=== PATIENT | female | born 1930 | race Caucasian/White ===

== ENCOUNTER 2017-05-27 12:06 | Emergency (ER) | payer MEDICARE, OTHER ==
--- NOTE | 2017-05-27 12:29 | ED ---
General Adult HPI - General Chief complaint: Fall Stated complaint: Hand Injury/Swelling, Back Pain Time Seen by Provider: 05/27/17 12:23 Source: patient, RN notes reviewed Mode of arrival: wheelchair Limitations: no limitations - History of Present Illness Initial comments: 86-year-old female presents to the emergency department with a chief complaint of trip and fall. The patient lost her balance and she fell to the ground. She states that she hit her right wrist on a chair and she landed onto her bottom. Since she's been having some low back pain. She also complains of right wrist pain. Follow was 2 days ago. There is no lightheadedness or dizziness before the fall. There was no head injury with the fall. She states that her swelling in her right hand just does not seem to be improving so she thought that she should be seen. Patient denies any recent fever, chills, shortness of breath, chest pain, abdominal pain, nausea vomiting, numbness or tingling, dysuria or hematuria, constipation or diarrhea, headaches or visual changes, or any other current symptoms. - Related Data Home Medications Medication Instructions Recorded Confirmed Furosemide [Lasix] 40 mg PO DAILY 12/08/14 12/08/14 LORazepam [Ativan] 0.5 mg PO HS 12/08/14 12/08/14 Multivitamins, Thera [Multivitamin 1 tab PO DAILY 12/08/14 12/08/14 (formulary)] Omeprazole [PriLOSEC] 20 mg PO AC-BRKFST 12/08/14 12/08/14 Pravastatin Sodium [Pravachol] 40 mg PO HS 12/08/14 12/08/14 Rivaroxaban [Xarelto] 15 mg PO DAILY 12/08/14 12/08/14 Spironolactone [Aldactone] 50 mg PO DAILY 12/08/14 12/08/14 Tiotropium 18 Mcg/Puff [Spiriva] 2 puff INHALATION RT-DAILY 12/08/14 12/08/14 rOPINIRole HCL [Requip] 1 mg PO HS 12/08/14 12/08/14 Previous Rx's Medication Instructions Recorded Brimonidine Tartrate [Alphagan P 1 drops LEFT EYE Q8HR bottle 12/10/14 0.2% Ophth Soln] Latanoprost Ophth [Xalatan 0.005%] 1 drops BOTH EYES HS bottle 12/10/14 Lisinopril-Hctz 10-12.5 mg 1 each PO DAILY tab 12/10/14 [Zestoretic 10-12.5] Timolol 0.25% Ophth Soln [Timoptic 1 drops LEFT EYE BID bottle 12/10/14 0.25% Ophth Soln] Acetaminophen-Codeine 300-30mg 1 tab PO Q4H PRN #20 tablet 05/27/17 [Tylenol w/codeine #3] Allergies Allergy/AdvReac Type Severity Reaction Status Date / Time Penicillins Allergy Rash/Hives Verified 05/27/17 12:19 sulfamethoxazole Allergy Rash/Hives Verified 05/27/17 12:19 [From Bactrim] trimethoprim [From Bactrim] Allergy Rash/Hives Verified 05/27/17 12:19 Review of Systems ROS Statement: Those systems with pertinent positive or pertinent negative responses have been documented in the HPI. ROS Other: All systems not noted in ROS Statement are negative. Past Medical History Past Medical History: Atrial Fibrillation, GERD/Reflux, GI Bleed, Hyperlipidemia , Hypertension Additional Past Medical History / Comment(s): restless leg syndrome History of Any Multi-Drug Resistant Organisms: None Reported Past Surgical History: Appendectomy, Cholecystectomy, Hysterectomy, Joint Replacement, Orthopedic Surgery Additional Past Surgical History / Comment(s): cataracts removed, bilateral knees Past Anesthesia/Blood Transfusion Reactions: No Reported Reaction Past Psychological History: Anxiety Smoking Status: Former smoker Past Alcohol Use History: None Reported Past Drug Use History: None Reported - Past Family History Father Family Medical History: Coronary Artery Disease (CAD) Additional Family Medical History / Comment(s): rhemuatic fever, at 59 of "bad heart" Mother Family Medical History: Cancer Additional Family Medical History / Comment(s): uterus General Exam Limitations: no limitations General appearance: alert, in no apparent distress ENT exam: Present: normal exam, mucous membranes moist Neck exam: Present: normal inspection. Absent: tenderness, meningismus, lymphadenopathy Respiratory exam: Present: normal lung sounds bilaterally. Absent: respiratory distress, wheezes, rales, rhonchi, stridor Cardiovascular Exam: Present: regular rate, normal rhythm, normal heart sounds. Absent: systolic murmur, diastolic murmur, rubs, gallop, clicks Extremities exam: Present: full ROM, tenderness (based the right thumb and into the right wrist), normal capillary refill. Absent: normal inspection (patient appears to have swelling to the right hand with some tenderness to the base of the right thumb and into the right wrist.) Back exam: Present: normal inspection, full ROM. Absent: tenderness, CVA tenderness (R), CVA tenderness (L), muscle spasm, paraspinal tenderness, vertebral tenderness, rash noted Neurological exam: Present: alert, oriented X3 Psychiatric exam: Present: normal affect, normal mood Skin exam: Present: warm, dry, intact, normal color. Absent: rash Course Vital Signs 05/27/17 12:17 Temperature 97.6 F Pulse Rate 58 L Respiratory 18 Rate Blood Pressure 130/84 O2 Sat by Pulse 94 L Oximetry Procedures - Orthopedic Splinting/Casting Injury #1 Side: right Upper Extremity Injury Location: short arm, wrist Upper Extremity Immobilizer: sling/shoulder immobilizer, volar splint Medical Decision Making - Medical Decision Making 86-year-old female presents emergency Department with a chief complaint of fall with low back pain and right wrist pain. Follow was 2 days ago. She denies any saddle anesthesia or loss of bowel or bladder function.at this time patient does appear to have a right wrist fracture as well as a lumbar compression fracture. This and we discussed of lung markings compression fractures of from this fall or from a previous injury. We discussed we will place wrist splint for the right wrist. We'll give her pain medication for home. We discussed follow-up with orthopedics we discussed return parameters all questions. Patient stated that she understood and she is given this plan. She'll be discharged. - Radiology Data Radiology results: report reviewed, image reviewed Disposition Clinical Impression: Fall, Right wrist fracture, Lumbar compression fracture Disposition: HOME SELF-CARE Condition: Stable Instructions: Wrist Fracture in Adults (ED), Vertebral Compression Fracture (ED ) Additional Instructions: Please use medication as discussed. Please follow up with family doctor if symptoms have not improved over the next two days. Please return to the emergency room if your symptoms increase or worsen or for any other concerns. Prescriptions: Acetaminophen-Codeine 300-30mg [Tylenol w/codeine #3] 1 tab PO Q4H PRN #20 tablet PRN Reason: Pain Referrals: Saurabh Ma DO [Primary Care Provider] - 1-2 days Nabil Canas DO [Doctor of Osteopathic Medicine] - 1-2 days Time of Disposition: 13:07
--- NOTE | 2017-05-27 12:58 | XR ---
Right wrist HISTORY: Trauma and pain 3 views of the right wrist There is a distal radial metaphyseal intra-articular fracture without significant displacement. Bone mineralization is reduced. 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 Soft tissue calcificati ons suggest possible crystal deposition arthropathy. No dislocation. There is soft tissue swelling pr esent. IMPRESSION: Fracture as described
--- NOTE | 2017-05-27 13:00 | XR ---
Lumbar spine HISTORY: Pain, trauma 3 views of the lumbar spine Lumbar vertebral bodies show preserved alignment. There is loss of height at L1 centrally approximate ly 2550%. Anterolisthesis grade 1 present at L5-S1. Loss of disc height present at the intervertebral levels L4-5 and L5-S1, there is vacuum phenomenon present L5-S1. Bone mineralization is reduced. The re is multilevel spondylosis. Sclerosis present in the posterior elements of the lower lumbar spine. Surgical clips noted incidentally in the upper abdomen. IMPRESSION: Osteoporotic compression fracture L1 may be subacute, MRI or bone scan could be performed for additional information. Anterolisthesis grade 1 L5-S1 may be due to facet arthropathy. Degenerat elie disc disease.
[2017-05-27] MEDS ORDERED: ACET/COD 300 MG/30 MG STARTER PACK 6 TAB BTL PO STA (13:15)
[2017-05-27 13:18] VITALS: BP 128/78; PULSE 60; RESP 17; TEMP 97.7
== END 2017-05-27 13:23 | disposition home or self-care (01) ==
LOC: EC 12:06
DX: S62.101A Fracture of unspecified carpal bone, right wrist, initial encounter for closed fracture (principal); S32.008A Other fracture of unspecified lumbar vertebra, initial encounter for closed fracture; E78.5 Hyperlipidemia, unspecified; I10 Essential (primary) hypertension; I48.91 Unspecified atrial fibrillation; K21.9 Gastro-esophageal reflux disease without esophagitis; G25.81 Restless legs syndrome; Z87.891 Personal history of nicotine dependence; Z79.01 Long term (current) use of anticoagulants; Z79.899 Other long term (current) drug therapy; Z88.0 Allergy status to penicillin; Z88.1 Allergy status to other antibiotic agents; W01.190A Fall on same level from slipping, tripping and stumbling with subsequent striking against furniture, initial encounter; Y92.009 Unspecified place in unspecified non-institutional (private) residence as the place of occurrence of the external cause
CPT/HCPCS: 29125; 72100; 99283

== ENCOUNTER 2019-01-17 09:50 | Emergency (ER) | payer MEDICARE, OTHER ==
[2019-01-17 10:00] VITALS: BP 153/107; PULSE 48; RESP 18; TEMP 99
[2019-01-17] MEDS ORDERED: DIPH,PERTUS(ACELL)TETVAC-LF 0.5 ML VIAL IM ONE (10:06)
--- NOTE | 2019-01-17 10:10 | ED ---
General Adult HPI - General Chief complaint: Fall Stated complaint: Fall Time Seen by Provider: 01/17/19 09:55 Source: patient, RN notes reviewed Mode of arrival: EMS Limitations: no limitations - History of Present Illness Initial comments: This is an 88-year-old female who presents to the emergency department complaining that she fell in the bathtub. Patient states she fell and hit her head in the left occipital region on the spit it if she went down. Patient also has a skin tear on her left posterior forearm. Patient states she did not lose consciousness she was not days she states it is a little tender in the left occipital region. Patient denies any neck pain patient denies numbness weakness. Patient is on Xarelto. Patient denies any chest pain palpitations difficulty breathing shortness of breath per patient denies any back pain patient denies any extremity pain besides the area of the skin tear. Patient has full range of motion of all her joints. - Related Data Home Medications Medication Instructions Recorded Confirmed LORazepam [Ativan] 0.5 mg PO HS PRN 12/08/14 01/17/19 Omeprazole [PriLOSEC] 20 mg PO AC-BRKFST 12/08/14 01/17/19 Pravastatin Sodium [Pravachol] 40 mg PO HS 12/08/14 01/17/19 Rivaroxaban [Xarelto] 15 mg PO HS 12/08/14 01/17/19 Tiotropium 18 Mcg/Puff [Spiriva] 2 puff INHALATION RT-DAILY 12/08/14 01/17/19 rOPINIRole HCL [Requip] 1 mg PO HS 12/08/14 01/17/19 Cyanocobalamin (Vitamin B-12) 1,000 mcg PO DAILY 01/17/19 01/17/19 [Vitamin B-12] Donepezil HCl [Aricept] 10 mg PO DAILY 01/17/19 01/17/19 Furosemide [Lasix] 20 mg PO DAILY 01/17/19 01/17/19 Latanoprost Ophth [Xalatan 0.005%] 1 drops LEFT EYE HS 01/17/19 01/17/19 Levothyroxine Sodium [Synthroid] 25 mcg PO DAILY 01/17/19 01/17/19 Lisinopril [Zestril] 10 mg PO HS 01/17/19 01/17/19 Spironolactone [Aldactone] 25 mg PO DAILY 01/17/19 01/17/19 Vit C/E/Zn/Coppr/Lutein/Zeaxan 1 cap PO DAILY 01/17/19 01/17/19 [Preservision Areds 2 Softgel] Allergies Allergy/AdvReac Type Severity Reaction Status Date / Time Penicillins Allergy Rash/Hives Verified 01/17/19 10:25 sulfamethoxazole Allergy Rash/Hives Verified 01/17/19 10:25 [From Bactrim] trimethoprim [From Bactrim] Allergy Rash/Hives Verified 01/17/19 10:25 Review of Systems ROS Statement: Those systems with pertinent positive or pertinent negative responses have been documented in the HPI. ROS Other: All systems not noted in ROS Statement are negative. Past Medical History Past Medical History: Atrial Fibrillation, GERD/Reflux, GI Bleed, Hyperlipidemia, Hypertension Additional Past Medical History / Comment(s): restless leg syndrome History of Any Multi-Drug Resistant Organisms: None Reported Past Surgical History: Appendectomy, Cholecystectomy, Hysterectomy, Joint Replacement, Orthopedic Surgery Additional Past Surgical History / Comment(s): cataracts removed, bilateral knees Past Anesthesia/Blood Transfusion Reactions: No Reported Reaction Past Psychological History: Anxiety Smoking Status: Former smoker Past Alcohol Use History: None Reported Past Drug Use History: None Reported - Past Family History Father Family Medical History: Coronary Artery Disease (CAD) Additional Family Medical History / Comment(s): rhemuatic fever, at 59 of "bad heart" Mother Family Medical History: Cancer Additional Family Medical History / Comment(s): uterus General Exam - General Exam Comments Initial Comments: GENERAL: Patient is well-developed and well-nourished. Patient is nontoxic and well- hydrated and is in mild distress. Patient has some tenderness in the left occipital region of the scalp there is no redness bleeding or hematoma noted ENT: Neck is soft and supple. No significant lymphadenopathy is noted. Oropharynx is clear. Moist mucous membranes. Neck has full range of motion without eliciting any pain. EYES: The sclera were anicteric and conjunctiva were pink and moist. Extraocular movements were intact and pupils were equal round and reactive to light. Eyelids were unremarkable. PULMONARY: Unlabored respirations. Good breath sounds bilaterally. No audible rales rhonchi or wheezing was noted. CARDIOVASCULAR: There is a regular rate and rhythm without any murmurs gallops or rubs. ABDOMEN: Soft and nontender with normal bowel sounds. No palpable organomegaly was noted. There is no palpable pulsatile mass. SKIN: Patient has a skin tear on the left forearm measuring about 4 cm x 4 cm. NEUROLOGIC: Patient is alert and oriented x3. Cranial nerves II through XII are grossly intact. Motor and sensory are also intact. Normal speech, volume and content. Symmetrical smile. MUSCULOSKELETAL: Normal extremities with adequate strength and full range of motion. No lower extremity swelling or edema. No calf tenderness. LYMPHATICS: No significant lymphadenopathy is noted PSYCHIATRIC: Normal psychiatric evaluation. Limitations: no limitations Course Vital Signs 01/17/19 09:55 Temperature 99.0 F Pulse Rate 48 L Respiratory 18 Rate Blood Pressure 153/107 O2 Sat by Pulse 99 Oximetry Medical Decision Making - Medical Decision Making CT of the brain showed no acute injury CT of the C-spine showed no acute injury Patient received a tetanus shot in the emergency department and had a skin tear closed with Dermabond Disposition Clinical Impression: Fall, Head injury, Skin tear Disposition: HOME SELF-CARE Condition: Good Instructions (If sedation given, give patient instructions): Fall Prevention for Older Adults (ED) Is patient prescribed a controlled substance at d/c from ED?: No Referrals: Saurabh Ma DO [Primary Care Provider] - 1-2 days Time of Disposition: 12:14
[2019-01-17] MEDS ORDERED: TOPICAL SKIN ADHESIVE 1 EACH AMP TOPICAL ONE (10:39)
--- NOTE | 2019-01-17 11:23 | CT ---
EXAMINATION TYPE: CT brain mena wo con DATE OF EXAM: 01/17/2019 COMPARISON: Brain 03/06/2012 HISTORY: 88-year-old female pain after Slip and fall in the bathtub CT DLP: 1265.3 mGycm Automated exposure control for dose reduction was used. Technique: Examination of the head was done in axial plane without intravenous contrast. Coronal and sagittal reconstructions performed. CT of the cervical spine was obtained in axial plane without intravenous injection of contrast mater ial. Coronal and sagittal reformatted images were obtained from the axial views for evaluation of f ractures, spinal alignment and canal. FINDINGS: Head: There is no evidence of acute intracranial hemorrhage, acute ischemic changes, mass, mass-effect, or extra-axial fluid collection. There is no effacement of cerebral sulci or basal subarachnoid cister ns. There is no hydrocephalus. There is no midline shift. Ford-white matter distinction is preserv ed. Ophthalmologic device along the outer anterior aspect of the left globe. Mastoid air cells well pneum atized. No calvarial fracture. Paranasal sinuses well pneumatized. Mild central cerebral atrophy with secondary prominence to the ventricular system. Cervical spine: Retropharyngeal course of the right ICA impressing on the right posterior aspect of the hypopharynx. However, there is asymmetric thickening along the base of the right uvula, axial image 45. This may b e secondary to soft tissue redundancy. No craniocervical junction abnormality, predental space widening, or prevertebral soft tissue swellin g. Degenerative change at C1 dens articulation. Facet and uncovertebral joint arthropathy throughout with grade 1 anterolisthesis at C3-C4 and C4-C5. Additional grade 2 anterolisthesis at C7-T1. Moderate disc/endplate degenerative change at C5-C6 and C6-C7. No acute fracture of the cervical spine. Variable moderate bilateral neuroforaminal stenoses throughout. Visualized upper lungs show moderate centrilobular emphysema. Sagittal and coronal reformatted images confirm above findings. COMBINED IMPRESSION: 1. Mild generalized atrophy without acute intracranial abnormality seen. 2. No acute fracture of the cervical spine. Moderate spondylotic change with grade 1 anterolistheses at C3-C4, C4-C5, and C7-T1. 3. Asymmetric thickening along the right lateral base of the uvula. ENT referral for direct visualiza tion. Mucosal space lesion versus redundant soft tissue from the retroareolar pharyngeal course of th e right ICA.
== END 2019-01-17 12:26 | disposition home or self-care (01) ==
LOC: EC 09:50
DX: S51.812A Laceration without foreign body of left forearm, initial encounter (principal); S09.90XA Unspecified injury of head, initial encounter; Z23 Encounter for immunization; I48.91 Unspecified atrial fibrillation; K21.9 Gastro-esophageal reflux disease without esophagitis; E78.5 Hyperlipidemia, unspecified; I10 Essential (primary) hypertension; G25.81 Restless legs syndrome; Z79.01 Long term (current) use of anticoagulants; Z87.891 Personal history of nicotine dependence; Z79.899 Other long term (current) drug therapy; Z79.890 Hormone replacement therapy; Z88.0 Allergy status to penicillin; Z88.2 Allergy status to sulfonamides; F41.9 Anxiety disorder, unspecified; Z96.653 Presence of artificial knee joint, bilateral; Z98.41 Cataract extraction status, right eye; Z98.42 Cataract extraction status, left eye; W18.2XXA Fall in (into) shower or empty bathtub, initial encounter; Y93.E1 Activity, personal bathing and showering
CPT/HCPCS: 12002; 70450; 72125; 90471; 90715; 99284

== ENCOUNTER 2019-05-24 15:29 | Inpatient (IN) | payer MEDICARE, OTHER ==
[2019-05-24] MEDS ORDERED: IPRATROPIUM-ALBUTEROL 3 ML NEB INHALATION STA ×2 (15:43→17:30)
[2019-05-24] MEDS ORDERED: methylPREDNISolone SOD SUCCI 125 MG/2 ML VIAL IV STA (15:56)
[2019-05-24 16:37] LABS: Basophils % (A) 1 %; Eosinophils % (A) 1 %; HCT 38.5 % (34.0-46.0); Lymphocytes # (A) 0.4 k/uL (1.0-4.8); Lymphocytes % (A) 9 %; MCH 30.3 pg (25.0-35.0); MCHC 33.8 g/dL (31.0-37.0); MCV 89.6 fL (80.0-100.0); Mean Platelet Volume 8.4; Monocytes # (A) 0.3 k/uL (0-1.0); Monocytes % (A) 6 %; Neutrophils # (A) 3.1 k/uL (1.3-7.7); Neutrophils % (A) 79 %; Platelet Count 154 k/uL (150-450); RDW 12.4 % (11.5-15.5); WBC 3.9 k/uL (3.8-10.6)
[2019-05-24 16:44] LABS: Albumin 4.3 g/dL (3.5-5.0); Calcium 9.2 mg/dL (8.4-10.2); Magnesium 1.7 mg/dL (1.6-2.3); Potassium 4.3 mmol/L (3.5-5.1); Total Bilirubin 0.7 mg/dL (0.2-1.3); Total Protein 7.4 g/dL (6.3-8.2)
--- NOTE | 2019-05-24 16:44 | ED ---
SOB HPI - General Source: patient, RN notes reviewed Mode of arrival: wheelchair Limitations: no limitations - History of Present Illness MD Complaint: shortness of breath <Manolo Sosa - Last Filed: 05/24/19 16:57> <Anders Cesar - Last Filed: 05/24/19 17:34> - General Chief Complaint: Shortness of Breath Stated Complaint: ANN-MARIE Time Seen by Provider: 05/24/19 15:37 - History of Present Illness Initial Comments: This is a 88-year-old female history of COPD CHF chronic renal disease as well as chronic A. fib and hyperglycemia the past who presents with complaints of 2 days of shortness of breath cough no phlegm she has had no chills or sweats but states she felt somewhat feverish also she's been having urinary frequency. She denies any dysuria denies any chest pain or palpitations no other complaints at this time. She states she was seen in outpatient clinic and sent here for further evaluation the provider at the other facility or is concerned about peripheral edema though the patient states her legs are no different than what he normally locally. (Manolo Sosa) - Related Data Home Medications Medication Instructions Recorded Confirmed LORazepam [Ativan] 0.5 mg PO HS PRN 12/08/14 01/17/19 Omeprazole [PriLOSEC] 20 mg PO AC-BRKFST 12/08/14 01/17/19 Pravastatin Sodium [Pravachol] 40 mg PO HS 12/08/14 01/17/19 Rivaroxaban [Xarelto] 15 mg PO HS 12/08/14 01/17/19 Tiotropium 18 Mcg/Puff [Spiriva] 2 puff INHALATION RT-DAILY 12/08/14 01/17/19 rOPINIRole HCL [Requip] 1 mg PO HS 12/08/14 01/17/19 Cyanocobalamin (Vitamin B-12) 1,000 mcg PO DAILY 01/17/19 01/17/19 [Vitamin B-12] Donepezil HCl [Aricept] 10 mg PO DAILY 01/17/19 01/17/19 Furosemide [Lasix] 20 mg PO DAILY 01/17/19 01/17/19 Latanoprost Ophth [Xalatan 0.005%] 1 drops LEFT EYE HS 01/17/19 01/17/19 Levothyroxine Sodium [Synthroid] 25 mcg PO DAILY 01/17/19 01/17/19 Lisinopril [Zestril] 10 mg PO HS 01/17/19 01/17/19 Spironolactone [Aldactone] 25 mg PO DAILY 01/17/19 01/17/19 Vit C/E/Zn/Coppr/Lutein/Zeaxan 1 cap PO DAILY 01/17/19 01/17/19 [Preservision Areds 2 Softgel] Allergies Allergy/AdvReac Type Severity Reaction Status Date / Time Penicillins Allergy Rash/Hives Verified 05/24/19 15:40 sulfamethoxazole Allergy Rash/Hives Verified 05/24/19 15:40 [From Bactrim] trimethoprim [From Bactrim] Allergy Rash/Hives Verified 05/24/19 15:40 Review of Systems ROS Other: All systems not noted in ROS Statement are negative. <Manolo Sosa - Last Filed: 05/24/19 16:57> ROS Other: All systems not noted in ROS Statement are negative. <Anders Cesar - Last Filed: 05/24/19 17:34> ROS Statement: Those systems with pertinent positive or pertinent negative responses have been documented in the HPI. Past Medical History Past Medical History: Atrial Fibrillation, Heart Failure, COPD, GERD/Reflux, GI Bleed, Hyperlipidemia, Hypertension Additional Past Medical History / Comment(s): restless leg syndrome History of Any Multi-Drug Resistant Organisms: None Reported Past Surgical History: Appendectomy, Cholecystectomy, Hysterectomy, Joint Replacement, Orthopedic Surgery Additional Past Surgical History / Comment(s): cataracts removed, bilateral knees Past Anesthesia/Blood Transfusion Reactions: No Reported Reaction Past Psychological History: Anxiety Smoking Status: Former smoker Past Alcohol Use History: None Reported Past Drug Use History: None Reported - Past Family History Father Family Medical History: Coronary Artery Disease (CAD) Additional Family Medical History / Comment(s): rhemuatic fever, at 59 of "bad heart" Mother Family Medical History: Cancer Additional Family Medical History / Comment(s): uterus <Manolo Sosa - Last Filed: 05/24/19 16:57> General Exam Limitations: no limitations General appearance: alert, anxious, in distress Head exam: Present: atraumatic, normocephalic, normal inspection Eye exam: Present: normal appearance, PERRL, EOMI. Absent: scleral icterus, conjunctival injection, periorbital swelling ENT exam: Present: normal exam, mucous membranes moist Neck exam: Present: normal inspection, full ROM, other. Absent: tenderness, meningismus, lymphadenopathy Respiratory exam: Present: accessory muscle use, decreased breath sounds. Absent: respiratory distress, wheezes (No stridor to 30 or bruits), rales, rhonchi, stridor Cardiovascular Exam: Present: irregular rhythm. Absent: systolic murmur, diastolic murmur, rubs, gallop, clicks GI/Abdominal exam: Present: soft, normal bowel sounds. Absent: distended, te nderness, guarding, rebound, rigid Extremities exam: Present: normal inspection, full ROM, normal capillary refill. Absent: tenderness, pedal edema, joint swelling, calf tenderness Back exam: Present: normal inspection Neurological exam: Present: alert, oriented X3, CN II-XII intact Psychiatric exam: Present: normal affect, normal mood Skin exam: Present: warm, dry, intact, normal color. Absent: rash <Manolo Sosa - Last Filed: 05/24/19 16:57> - General Exam Comments Initial Comments: This is a well-developed well-nourished awake alert oriented 3 female he does demonstrate audible wheezing (Manolo Sosa) Course <Manolo Sosa - Last Filed: 05/24/19 16:57> Vital Signs 05/24/19 05/24/19 05/24/19 15:35 15:43 15:49 Temperature 98.1 F Pulse Rate 87 65 Respiratory 30 H Rate Blood Pressure 167/113 O2 Sat by Pulse 90 L Oximetry 05/24/19 15:57 Temperature Pulse Rate 68 Respiratory Rate Blood Pressure O2 Sat by Pulse Oximetry - Reevaluation(s) Reevaluation #1: 05/24/19 16:58 Patient's case will be endorsed to Dr. Tali arnold (Manolo Sosa) Medical Decision Making - Lab Data Result diagrams: 05/24/19 16:15 05/24/19 16:15 - EKG Data -: EKG Interpreted by Me (Atrial fibrillation with occasional PVC's, nonspecific ST-T wave configurat) <Manolo Sosa - Last Filed: 05/24/19 16:57> - Lab Data Result diagrams: 05/24/19 16:15 05/24/19 16:15 <Anders Cesar - Last Filed: 05/24/19 17:34> - Medical Decision Making Patient care was signed out to me by previous shift physician Dr. Sosa. Briefly, patient is a 48-year-old female w multiple comorbidities. She presents today with shortness of breath. Patient was found have wheezing with auscultation of the lungs. She is on Xarelto for atrial fibrillation. Patient has history of heart failure and COPD. Plan at sign out was to follow-up with pending labs, imaging and reevaluating the patient. Patient currently on anticoagulation medication. Chances of having pulmonary embolism is unlikely. Patient was treated with breathing treatment and steroids for the presumptive diagnosis of COPD exacerbation. Labs were reviewed. Patient has elevated prematurity peptide of 3600. Her x- ray is unremarkable. Patient reevaluated after first breathing treatment with slight improvement however she is still tachypneic and showing signs of increased work of breathing. Second breathing treatment was ordered she is also given Lasix for concern of cardiac wheeze. Discussed patient case with Dr. Saurabh Ma is willing to accept patients care. He reports that patient does not have a history of COPD and that she does have history of heart failure. He is willing to accept patients care for admission. Patient is understandable and agreeable to plan. We will place cardiology on consultation as well as. (Anders Cesar) - Lab Data Lab Results 05/24/19 05/24/19 05/24/19 Range/Units 16:15 16:15 16:15 WBC 3.9 (3.8-10.6) k/uL RBC 4.30 (3.80-5.40) m/uL Hgb 13.0 (11.4-16.0) gm/dL Hct 38.5 (34.0-46.0) % MCV 89.6 (80.0-100.0) fL MCH 30.3 (25.0-35.0) pg MCHC 33.8 (31.0-37.0) g/dL RDW 12.4 (11.5-15.5) % Plt Count 154 (150-450) k/uL Neutrophils % 79 % Lymphocytes % 9 % Monocytes % 6 % Eosinophils % 1 % Basophils % 1 % Neutrophils # 3.1 (1.3-7.7) k/uL Lymphocytes # 0.4 L (1.0-4.8) k/uL Monocytes # 0.3 (0-1.0) k/uL Eosinophils # 0.0 (0-0.7) k/uL Basophils # 0.0 (0-0.2) k/uL PT (9.0-12.0) sec INR (<1.2) APTT (22.0-30.0) sec Sodium 137 (137-145) mmol/L Potassium 4.3 (3.5-5.1) mmol/L Chloride 100 (98-107) mmol/L Carbon Dioxide 27 (22-30) mmol/L Anion Gap 10 mmol/L BUN 18 H (7-17) mg/dL Creatinine 0.90 (0.52-1.04) mg/dL Est GFR (CKD-EPI)AfAm 67 (>60 ml/min/1.73 sqM) Est GFR (CKD-EPI)NonAf 58 (>60 ml/min/1.73 sqM) Glucose 157 H (74-99) mg/dL Calcium 9.2 (8.4-10.2) mg/dL Magnesium 1.7 (1.6-2.3) mg/dL Total Bilirubin 0.7 (0.2-1.3) mg/dL AST 22 (14-36) U/L ALT 12 (4-34) U/L Alkaline Phosphatase 143 H (38-126) U/L Troponin I (0.000-0.034) ng/mL NT-Pro-B Natriuret Pep 3600 pg/mL Total Protein 7.4 (6.3-8.2) g/dL Albumin 4.3 (3.5-5.0) g/dL Urine Color Urine Appearance (Clear) Urine pH (5.0-8.0) Ur Specific Roe[place] (1.001-1.035) Urine Protein (Negative) Urine Glucose (UA) (Negative) Urine Ketones (Negative) Urine Blood (Negative) Urine Nitrite (Negative) Urine Bilirubin (Negative) Urine Urobilinogen (<2.0) mg/dL Ur Leukocyte Esterase (Negative) Urine RBC (0-5) /hpf Urine WBC (0-5) /hpf Urine Bacteria (None) /hpf Hyaline Casts (0-2) /lpf Urine Mucus (None) /hpf 05/24/19 05/24/19 05/24/19 Range/Units 16:15 16:15 17:00 WBC (3.8-10.6) k/uL RBC (3.80-5.40) m/uL Hgb (11.4-16.0) gm/dL Hct (34.0-46.0) % MCV (80.0-100.0) fL MCH (25.0-35.0) pg MCHC (31.0-37.0) g/dL RDW (11.5-15.5) % Plt Count (150-450) k/uL Neutrophils % % Lymphocytes % % Monocytes % % Eosinophils % % Basophils % % Neutrophils # (1.3-7.7) k/uL Lymphocytes # (1.0-4.8) k/uL Monocytes # (0-1.0) k/uL Eosinophils # (0-0.7) k/uL Basophils # (0-0.2) k/uL PT 11.7 (9.0-12.0) sec INR 1.2 H (<1.2) APTT 26.9 (22.0-30.0) sec Sodium (137-145) mmol/L Potassium (3.5-5.1) mmol/L Chloride (98-107) mmol/L Carbon Dioxide (22-30) mmol/L Anion Gap mmol/L BUN (7-17) mg/dL Creatinine (0.52-1.04) mg/dL Est GFR (CKD-EPI)AfAm (>60 ml/min/1.73 sqM) Est GFR (CKD-EPI)NonAf (>60 ml/min/1.73 sqM) Glucose (74-99) mg/dL Calcium (8.4-10.2) mg/dL Magnesium (1.6-2.3) mg/dL Total Bilirubin (0.2-1.3) mg/dL AST (14-36) U/L ALT (4-34) U/L Alkaline Phosphatase (38-126) U/L Troponin I 0.014 (0.000-0.034) ng/mL NT-Pro-B Natriuret Pep pg/mL Total Protein (6.3-8.2) g/dL Albumin (3.5-5.0) g/dL Urine Color Yellow Urine Appearance Clear (Clear) Urine pH 5.0 (5.0-8.0) Ur Specific [place] 1.010 (1.001-1.035) Urine Protein Negative (Negative) Urine Glucose (UA) Negative (Negative) Urine Ketones Negative (Negative) Urine Blood Negative (Negative) Urine Nitrite Negative (Negative) Urine Bilirubin Negative (Negative) Urine Urobilinogen <2.0 (<2.0) mg/dL Ur Leukocyte Esterase Trace H (Negative) Urine RBC <1 (0-5) /hpf Urine WBC 1 (0-5) /hpf Urine Bacteria Rare H (None) /hpf Hyaline Casts 9 H (0-2) /lpf Urine Mucus Rare H (None) /hpf Disposition <Manolo Sosa - Last Filed: 05/24/19 16:57> Decision Time: 17:34 <Anders Cesar - Last Filed: 05/24/19 17:34> Clinical Impression: Dyspnea Disposition: ADMITTED IP TO THIS [facility] Condition: Fair Referrals: Saurabh Ma DO [Primary Care Provider] - 1-2 days
[2019-05-24 16:45] LABS: INR 1.2 (<1.2); Partial Thromboplastin Time 26.9 sec (22.0-30.0); Prothrombin Time 11.7 sec (9.0-12.0)
--- NOTE | 2019-05-24 17:04 | XR ---
EXAMINATION: XR chest 2V DATE AND TIME: 05/24/2019 5:00 PM CLINICAL INDICATION: PHH; difficulty breathing TECHNIQUE: Departmental protocol COMPARISON: 12/08/2014 FINDINGS: The lungs are clear. The pleural spaces are negative. The cardiac silhouette is moderate-markedly enlarged, similar to the prior study. The marked thoracic aorta tortuosity seen in the prior study is redemonstrated, with similar appearance. The skeletal structures and soft tissues are negative for acute findings. IMPRESSION: No definite acute radiographic process.
[2019-05-24] MEDS ORDERED: FUROSEMIDE 10 MG/ML 4 ML VIAL IV STA (17:15)
[2019-05-24 17:27] LABS: Appearance,Urine Clear (Clear); Bacteria,Urine Rare /hpf; Bilirubin,Urine Negative (Negative); Blood,Urine Negative (Negative); Color,Urine Yellow; Glucose,Urine (UA) Negative (Negative); Hyaline Casts,Urine 9 /lpf (0-2); Ketones,Urine Negative (Negative); Leukocyte Esterase,Urine Trace (Negative); Mucus,Urine Rare /hpf; Nitrite,Urine Negative (Negative); Protein,Urine Negative (Negative); RBC,Urine <1 /hpf (0-5); Urobilinogen,Urine <2.0 mg/dL (<2.0); WBC,Urine 1 /hpf (0-5)
[2019-05-24] MEDS ORDERED: FUROSEMIDE 10 MG/ML 4 ML VIAL IV SCH (17:45)
[2019-05-24] MEDS: RIVAROXABAN 15 MG TAB PO SCH (20:53)
[2019-05-24] MEDS: LISINOPRIL 10 MG TAB PO SCH (20:53)
[2019-05-24] MEDS: PRAVASTATIN SODIUM 40 MG TAB PO SCH (20:53)
[2019-05-24] MEDS: IPRATROPIUM-ALBUTEROL 3 ML NEB INHALATION PRN (21:04)
[2019-05-24] MEDS ORDERED: LORazepam 0.5 MG TAB PO PRN (21:19)
[2019-05-24] MEDS: DONEPEZIL 10 MG TAB PO SCH (21:41)
[2019-05-25] MEDS: PANTOPRAZOLE 40 MG TABLET PO SCH (06:22)
[2019-05-25] MEDS: LEVOTHYROXINE 25 MCG TAB PO SCH (06:22)
[2019-05-25] MEDS: FUROSEMIDE 10 MG/ML 4 ML VIAL IV SCH ×2 (06:22→17:17)
[2019-05-25] MEDS: IPRATROPIUM 0.5 MG/2.5 ML NEBU INHALATION SCH ×2 (07:01→11:01)
[2019-05-25] MEDS: CYANOCOBALAMIN 500 MCG TAB PO SCH (08:16)
[2019-05-25] MEDS: DONEPEZIL 10 MG TAB PO SCH (08:16)
[2019-05-25] MEDS ORDERED: NON FORMULARY DRUG (Vit C/E/Zn/Coppr/Lutein/Zeaxan [Preservision Areds 2 Softgel] 1 CAP) PO SCH (09:00)
[2019-05-25 10:47] VITALS: BMI 29.4
[2019-05-25] MEDS: IPRATROPIUM-ALBUTEROL 3 ML NEB INHALATION PRN (11:01)
[2019-05-25] MEDS: guaiFENesin SYRUP 100MG/5ML 200 MG/10 ML CUP PO PRN ×2 (11:09→20:05)
[2019-05-25] MEDS: methylPREDNISolone SOD SUCCI 40 MG/ML 1 ML VIAL IV SCH ×3 (11:09→23:25)
[2019-05-25] MEDS: IPRATROPIUM-ALBUTEROL 3 ML NEB INHALATION SCH ×3 (12:28→20:17)
--- NOTE | 2019-05-25 12:37 | P.CNPUL ---
History of Present Illness Consult date: 05/25/19 Reason for consult: dyspnea, cough Chief complaint: Shortness of breath, cough, wheezing History of present illness: 88-year-old female patient of Dr. Ma with past medical history of chronic congestive heart failure, chronic kidney disease, chronic A. fib on Xarelto, COPD, former history of smoking, who has been noticing gradual worsening of her dyspnea over several months. She states she has been experiencing decreased exercise capacity, she would walk from her car to her apartment about 50 feet and she would have to sit down and rest, she denied any chest pain. Last couple of days she has been experiencing significant worsening shortness of breath, orthopnea, patient has been coughing more so at night. Was increased wheezing, she is not normally on oxygen, has never seen a photogrammetric compilation specialist, patient is on Spiriva for maintenance inhaler. Denied any swelling in her lower extremities, denied any fever or chills, denied any chest pain, denied any purulent sputum production. She states she had been evaluated by Dr. VC Gonzalez in the past for heart disease. Her chest x-ray was completely showed no definite acute radiographic process. Labs were completed and CBC was unremarkable, INR is 1.2, electrolytes were within normal limits, BUN is 18 creatinine 0.90, Portia ALT were within normal limits, alkaline phosphatase is 143, troponin was 0.014, proBNP is 3600, urinalysis showed trace glucose, and rare bacteria, no significant sign of infection. Patient was started on diuretics, breathing treatments, and were consulted for acute COPD exacerbation Review of Systems All systems: negative Constitutional: Denies chills, Denies fever Eyes: denies blurred vision, denies pain Ears, nose, mouth and throat: Denies headache, Denies sore throat Cardiovascular: Reports decreased exercise tolerance, Reports dyspnea on exertion, Denies chest pain, Denies shortness of breath Respiratory: Reports dyspnea, Reports wheezing, Denies cough Gastrointestinal: Denies abdominal pain, Denies diarrhea, Denies nausea, Denies vomiting Genitourinary: Denies dysuria, Denies hematuria Musculoskeletal: Denies myalgias Integumentary: Denies pruritus, Denies rash Neurological: Denies numbness, Denies weakness Psychiatric: Denies anxiety, Denies depression Endocrine: Denies fatigue, Denies weight change Past Medical History Past Medical History: Atrial Fibrillation, Heart Failure, COPD, GERD/Reflux, GI Bleed, Hyperlipidemia, Hypertension Additional Past Medical History / Comment(s): restless leg syndrome History of Any Multi-Drug Resistant Organisms: None Reported Past Surgical History: Appendectomy, Cholecystectomy, Hysterectomy, Joint Replacement, Orthopedic Surgery Additional Past Surgical History / Comment(s): cataracts removed, bilateral knees Past Anesthesia/Blood Transfusion Reactions: No Reported Reaction Past Psychological History: Anxiety Smoking Status: Former smoker Past Alcohol Use History: None Reported Past Drug Use History: None Reported - Past Family History Father Family Medical History: Coronary Artery Disease (CAD) Additional Family Medical History / Comment(s): rhemuatic fever, at 59 of "bad heart" Mother Family Medical History: Cancer Additional Family Medical History / Comment(s): uterus Medications and Allergies Home Medications Medication Instructions Recorded Confirmed Type LORazepam [Ativan] 0.5 mg PO HS PRN 12/08/14 05/24/19 History Omeprazole [PriLOSEC] 20 mg PO AC-BRKFST 12/08/14 05/24/19 History Pravastatin Sodium [Pravachol] 40 mg PO HS 12/08/14 05/24/19 History Rivaroxaban [Xarelto] 15 mg PO HS 12/08/14 05/24/19 History Tiotropium 18 Mcg/Puff [Spiriva] 2 cap INHALATION RT-DAILY 12/08/14 05/24/19 History rOPINIRole HCL [Requip] 1 mg PO HS 12/08/14 05/24/19 History Cyanocobalamin (Vitamin B-12) 1,000 mcg PO DAILY 01/17/19 05/24/19 History [Vitamin B-12] Donepezil HCl [Aricept] 10 mg PO DAILY 01/17/19 05/24/19 History Furosemide [Lasix] 20 mg PO DAILY 01/17/19 05/24/19 History Latanoprost Ophth [Xalatan 0.005%] 1 drops LEFT EYE HS 01/17/19 05/24/19 History Levothyroxine Sodium [Synthroid] 25 mcg PO DAILY 01/17/19 05/24/19 History Lisinopril [Zestril] 10 mg PO HS 01/17/19 05/24/19 History Spironolactone [Aldactone] 25 mg PO DAILY 01/17/19 05/24/19 History Vit C/E/Zn/Coppr/Lutein/Zeaxan 1 cap PO DAILY 01/17/19 05/24/19 History [Preservision Areds 2 Softgel] Allergies Allergy/AdvReac Type Severity Reaction Status Date / Time Penicillins Allergy Rash/Hives Verified 05/24/19 18:45 sulfamethoxazole Allergy Rash/Hives Verified 05/24/19 18:45 [From Bactrim] trimethoprim [From Bactrim] Allergy Rash/Hives Verified 05/24/19 18:45 Physical Exam Vitals: Vital Signs Temp Pulse Pulse Resp BP BP Pulse Ox 05/25/19 11:15 70 05/25/19 11:03 76 05/25/19 08:00 97.7 F 72 18 161/77 96 05/25/19 07:14 72 05/25/19 07:04 68 98 05/25/19 03:10 98.1 F 51 L 18 162/80 96 05/24/19 23:15 97.9 F 61 18 144/77 93 L 05/24/19 21:11 65 05/24/19 21:04 65 05/24/19 21:00 20 05/24/19 20:45 97.7 F 63 20 178/84 97 05/24/19 20:29 98.0 F 64 22 156/77 99 05/24/19 18:18 98.1 F 60 22 170/96 100 05/24/19 15:57 68 05/24/19 15:49 65 05/24/19 15:43 98.1 F 05/24/19 15:35 87 30 H 167/113 90 L Intake and Output 05/24/19 05/25/19 05/25/19 22:59 06:59 14:59 Intake Total 360 Output Total 300 400 800 Balance -300 -400 -440 Intake: Oral 360 Output: Urine 300 400 800 Other: Weight 83.915 kg 82.6 kg 82.6 kg GENERAL EXAM: Alert, very pleasant, 88-year-old white female, on 2 L of oxygen with a pulse ox of 96%, audibly wheezy, and mildly dyspneic, comfortable in no apparent distress. HEAD: Normocephalic/atraumatic. EYES: Normal reaction of pupils, equal size. Conjunctiva pink, sclera white. NOSE: Clear with pink turbinates. THROAT: No erythema or exudates. NECK: No masses, no JVD, no thyroid enlargement, no adenopathy. CHEST: No chest wall deformity. Symmetrical expansion. LUNGS: Equal air entry with diffuse scattered wheezes CVS: Regular rate and rhythm, normal S1 and S2, no gallops, no murmurs, no rubs ABDOMEN: Soft, nontender. No hepatosplenomegaly, normal bowel sounds, no guarding or rigidity. EXTREMITIES: No clubbing, no edema, no cyanosis, 2+ pulses and upper and lower extremities. MUSCULOSKELETAL: Muscle strength and tone normal. SPINE: No scoliosis or deformity SKIN: No rashes CENTRAL NERVOUS SYSTEM: Alert and oriented -3. No focal deficits, tone is normal in all 4 extremities. PSYCHIATRIC: Alert and oriented -3. Appropriate affect. Intact judgment and insight. Results - Laboratory Findings CBC and BMP: 05/24/19 16:15 05/24/19 16:15 PT/INR, D-dimer PT 11.7 sec (9.0-12.0) 05/24/19 16:15 INR 1.2 (<1.2) H 05/24/19 16:15 Abnormal lab findings: Abnormal Labs 05/24/19 05/24/19 05/24/19 16:15 16:15 16:15 Lymphocytes # 0.4 L INR 1.2 H BUN 18 H Glucose 157 H Alkaline Phosphatase 143 H Ur Leukocyte Esterase Urine Bacteria Hyaline Casts Urine Mucus 05/24/19 17:00 Lymphocytes # INR BUN Glucose Alkaline Phosphatase Ur Leukocyte Esterase Trace H Urine Bacteria Rare H Hyaline Casts 9 H Urine Mucus Rare H - Diagnostic Findings Chest x-ray: report reviewed, image reviewed Assessment and Plan Plan: Assessment: #1. Acute hypoxic respiratory failure related to acute exacerbation of COPD #2. Acute exacerbation of CHF with unknown EF #3. Hypertension #4. Atrial fibrillation on anticoagulation with Xarelto #5. GERD/reflux #6. COPD #7. Hyperlipidemia #8. Previous history of GI bleeding #9. 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 I reviewed the nurse practitioner's note and agree with the documented findings and plan of care. Lung sounds are positive for diffuse wheezes throughout the lung fall. The findings and the impression was discussed with the patient. I attest to the documentation by the nurse practitioner. Time with Patient: Greater than 30
--- NOTE | 2019-05-25 16:22 | P.HPIM ---
History of Present Illness H&P Date: 05/25/19 Chief Complaint: Worsening shortness of breath 88-year-old female with history of atrial fibrillation, CHF, COPD, gastroesophageal reflux disease, GI bleed, former nicotine dependence and multiple other medical issues presented to the ER with complaints of worsening shortness of breath over the last couple of days accompanied by nonproductive cough, peripheral edema ,no chills, no diaphoresis, febrile. Initially evaluated at outside clinic and referred to the ER for further evaluation. Upon arrival patient using accessory muscles, tachypneic, with O2 sat of 90% on room air. EKG report atrial fibrillation with PVCs, nonspecific ST and T waves, troponin 0.014, BNP 3600. Denies any chest pain, palpitations. Labs essentially unremarkable. Afebrile, normal WBC, INR 1.2 BUN 18 creatinine 0.9, potassium 4.3, magnesium 1.7, alk phos 143. UA reporting rare bacteria trace of leukocytes , WBC of 1 ,negative for nitrates. Chest x-ray reporting similar to prior study, non acute. Nebulized breathing treatments, steroids, Lasix and she. Review of Systems ROS Other: All systems not noted in ROS Statement are negative. ROS Statement: Those systems with pertinent positive or pertinent negative responses have been documented in the HPI. Past Medical History Past Medical History: Atrial Fibrillation, Heart Failure, COPD, GERD/Reflux, GI Bleed, Hyperlipidemia, Hypertension Additional Past Medical History / Comment(s): restless leg syndrome History of Any Multi-Drug Resistant Organisms: None Reported Past Surgical History: Appendectomy, Cholecystectomy, Hysterectomy, Joint Replacement, Orthopedic Surgery Additional Past Surgical History / Comment(s): cataracts removed, bilateral knees Past Anesthesia/Blood Transfusion Reactions: No Reported Reaction Past Psychological History: Anxiety Smoking Status: Former smoker Past Alcohol Use History: None Reported Past Drug Use History: None Reported - Past Family History Father Family Medical History: Coronary Artery Disease (CAD) Additional Family Medical History / Comment(s): rhemuatic fever, at 59 of "bad heart" Mother Family Medical History: Cancer Additional Family Medical History / Comment(s): uterus Medications and Allergies Home Medications Medication Instructions Recorded Confirmed Type LORazepam [Ativan] 0.5 mg PO HS PRN 12/08/14 05/24/19 History Omeprazole [PriLOSEC] 20 mg PO AC-BRKFST 12/08/14 05/24/19 History Pravastatin Sodium [Pravachol] 40 mg PO HS 12/08/14 05/24/19 History Rivaroxaban [Xarelto] 15 mg PO HS 12/08/14 05/24/19 History Tiotropium 18 Mcg/Puff [Spiriva] 2 cap INHALATION RT-DAILY 12/08/14 05/24/19 History rOPINIRole HCL [Requip] 1 mg PO HS 12/08/14 05/24/19 History Cyanocobalamin (Vitamin B-12) 1,000 mcg PO DAILY 01/17/19 05/24/19 History [Vitamin B-12] Donepezil HCl [Aricept] 10 mg PO DAILY 01/17/19 05/24/19 History Furosemide [Lasix] 20 mg PO DAILY 01/17/19 05/24/19 History Latanoprost Ophth [Xalatan 0.005%] 1 drops LEFT EYE HS 01/17/19 05/24/19 History Levothyroxine Sodium [Synthroid] 25 mcg PO DAILY 01/17/19 05/24/19 History Lisinopril [Zestril] 10 mg PO HS 01/17/19 05/24/19 History Spironolactone [Aldactone] 25 mg PO DAILY 01/17/19 05/24/19 History Vit C/E/Zn/Coppr/Lutein/Zeaxan 1 cap PO DAILY 01/17/19 05/24/19 History [Preservision Areds 2 Softgel] Allergies Allergy/AdvReac Type Severity Reaction Status Date / Time Penicillins Allergy Rash/Hives Verified 05/24/19 18:45 sulfamethoxazole Allergy Rash/Hives Verified 05/24/19 18:45 [From Bactrim] trimethoprim [From Bactrim] Allergy Rash/Hives Verified 05/24/19 18:45 Physical Exam Vitals: Vital Signs Temp Pulse Pulse Resp BP BP Pulse Ox 05/25/19 11:15 70 05/25/19 11:03 76 05/25/19 08:00 97.7 F 72 18 161/77 96 05/25/19 07:14 72 05/25/19 07:04 68 98 05/25/19 03:10 98.1 F 51 L 18 162/80 96 05/24/19 23:15 97.9 F 61 18 144/77 93 L 05/24/19 21:11 65 05/24/19 21:04 65 05/24/19 21:00 20 05/24/19 20:45 97.7 F 63 20 178/84 97 05/24/19 20:29 98.0 F 64 22 156/77 99 05/24/19 18:18 98.1 F 60 22 170/96 100 05/24/19 15:57 68 05/24/19 15:49 65 05/24/19 15:43 98.1 F 05/24/19 15:35 87 30 H 167/113 90 L Intake and Output 05/24/19 05/25/19 05/25/19 22:59 06:59 14:59 Intake Total 360 Output Total 300 400 800 Balance -300 -400 -440 Intake: Oral 360 Output: Urine 300 400 800 Other: Weight 83.915 kg 82.6 kg 82.6 kg PHYSICAL EXAM: VITAL SIGNS: As above GENERAL: Sitting up in bed, no acute distress HEENT: Conjunctivae normal. eyes normal. Oral mucosa moist NECK: No JVD. No thyroid enlargement. No LNs CARDIOVASCULAR: S1, S2 regular.. No murmur RESPIRATION: Breath sounds diminished in the bases. No rhonchi, few crackles. Expiratory wheezing. ABDOMEN: Soft, nontender . No guarding. no masses palpable. No ascites, No hepatosplenomegaly.Bowel sounds heard. LEGS: Mild edema. PSYCHIATRY: Alert and oriented X3, mood and affect normal. NERVOUS SYSTEM: Cranial N 2-12 grossly normal. Moves all 4 limbs. Diffuse weakness No focal deficits. Strength and sensation grossly intact.. Skin: no rash Lymphatic system. No LN neck axilla. Results CBC & Chem 7: 05/24/19 16:15 05/24/19 16:15 Labs: Abnormal Lab Results - Last 24 Hours (Table) 05/24/19 05/24/19 05/24/19 Range/Units 16:15 16:15 16:15 Lymphocytes # 0.4 L (1.0-4.8) k/uL INR 1.2 H (<1.2) BUN 18 H (7-17) mg/dL Glucose 157 H (74-99) mg/dL Alkaline Phosphatase 143 H (38-126) U/L Ur Leukocyte Esterase (Negative) Urine Bacteria (None) /hpf Hyaline Casts (0-2) /lpf Urine Mucus (None) /hpf 05/24/19 Range/Units 17:00 Lymphocytes # (1.0-4.8) k/uL INR (<1.2) BUN (7-17) mg/dL Glucose (74-99) mg/dL Alkaline Phosphatase (38-126) U/L Ur Leukocyte Esterase Trace H (Negative) Urine Bacteria Rare H (None) /hpf Hyaline Casts 9 H (0-2) /lpf Urine Mucus Rare H (None) /hpf Thrombosis Risk Factor Assmnt - Choose All That Apply Any of the Below Risk Factors Present?: Yes Each Factor Represents 1 point: Abnormal pulmonary function (COPD), Medical pt on bed rest, Obesity (BMI >25), Serious lung disease incl. pneumonia (< 1month), Swollen legs (current), Varicose veins Other Risk Factors: Yes Each Risk Factor Represents 3 Points: Age 75 years or older Other congenital or acquired thrombophilia - If yes, enter type in comment: No Thrombosis Risk Factor Assessment Total Risk Factor Score: 9 Thrombosis Risk Factor Assessment Level: High Risk Assessment and Plan Assessment: Acute hypoxic respiratory failure secondary to acute COPD exacerbation, acute CHF-EF unknown Acute on chronic CHF, EF unknown Chronic atrial fibrillation on Xarelto Gastroesophageal reflux disease History of GI bleed hyperlipidemia attention to assess leg syndrome Anxiety Former nicotine dependence Plan: Continue on current medication regime ,monitoring and symptomatic treatment. Echo ordered. Pulmonary, cardiology consulted. Maintain nebulized bronchodilators, steroids, IV diuretics. Home meds have been reviewed and resumed accordingly. GI and DVT prophylaxis in place. The impression and plan of care has been dictated as directed. : I performed a history and examination of this patient, discussed the same with the dictator. I agree with the dictator's note ,documented as a scribe. Any additional findings or plans will be noted.
[2019-05-25 16:29] LABS: Glucose,Whole Blood 136 mg/dL (75-99)
[2019-05-25] MEDS: INSULIN ASPART (NovoLOG) 100 UNIT/ML VIAL SQ SCH ×2 (17:04→20:29)
[2019-05-25] MEDS: RIVAROXABAN 15 MG TAB PO SCH (20:04)
[2019-05-25] MEDS: LATANOPROST 0.005% OPHTH DROPS 2.5 ML BTL LEFT EYE SCH (20:04)
[2019-05-25] MEDS: LISINOPRIL 10 MG TAB PO SCH (20:04)
[2019-05-25] MEDS: PRAVASTATIN SODIUM 40 MG TAB PO SCH (20:04)
[2019-05-25] MEDS: BUDESONIDE 1 MG/2 ML NEBU INHALATION SCH (20:17)
[2019-05-25] MEDS: FORMOTEROL FUMARATE 20 MCG/2 ML NEBU INHALATION SCH (20:17)
[2019-05-25 20:22] LABS: Glucose,Whole Blood 163 mg/dL (75-99)
[2019-05-26] MEDS: LEVOTHYROXINE 25 MCG TAB PO SCH (06:04)
[2019-05-26] MEDS: PANTOPRAZOLE 40 MG TABLET PO SCH (06:04)
[2019-05-26] MEDS: FUROSEMIDE 10 MG/ML 4 ML VIAL IV SCH (06:04)
[2019-05-26 06:22] LABS: Glucose,Whole Blood 143 mg/dL (75-99)
[2019-05-26] MEDS: INSULIN ASPART (NovoLOG) 100 UNIT/ML VIAL SQ SCH ×4 (06:25→20:34)
[2019-05-26 06:53] LABS: Basophils % (A) 0 %; Eosinophils % (A) 1 %; HCT 37.6 % (34.0-46.0); HGB 12.8 gm/dL (11.4-16.0); Lymphocytes # (A) 0.3 k/uL (1.0-4.8); Lymphocytes % (A) 5 %; MCV 88.1 fL (80.0-100.0); Mean Platelet Volume 8.5; Monocytes # (A) 0.1 k/uL (0-1.0); Monocytes % (A) 3 %; Neutrophils # (A) 4.8 k/uL (1.3-7.7); Neutrophils % (A) 91 %; Platelet Count 160 k/uL (150-450); RBC 4.27 m/uL (3.80-5.40); RDW 12.2 % (11.5-15.5); WBC 5.2 k/uL (3.8-10.6)
[2019-05-26 07:01] LABS: Calcium 9.3 mg/dL (8.4-10.2); Potassium 4.2 mmol/L (3.5-5.1)
[2019-05-26] MEDS: IPRATROPIUM-ALBUTEROL 3 ML NEB INHALATION SCH ×4 (08:17→18:56)
[2019-05-26] MEDS: FORMOTEROL FUMARATE 20 MCG/2 ML NEBU INHALATION SCH ×2 (08:17→18:56)
[2019-05-26] MEDS: BUDESONIDE 1 MG/2 ML NEBU INHALATION SCH ×2 (08:17→18:56)
--- NOTE | 2019-05-26 08:17 | P.CRDCN ---
History of Present Illness Consult date: 05/26/19 Consult reason: congestive heart failure History of present illness: History of present illness: This is an 88-year-old female patient of Dr. VC Gonzalez with past medical history of chronic congestive heart failure, hypertension, hyperlipidemia, chronic kidney disease, chronic A. fib on Xarelto, COPD, former history of smoking, gastroesophageal reflux disease, dementia. Patient states she was followed with Dr. Gonzalez 5 weeks ago. She denies any medication changes at that time. Patient complains of worsening of her dyspnea over several months along with shortness of breath with exertion, patient sleeping with 2 pillows. She also complains of a wheezing. Symptoms worsened over the last couple of days. Patient came into [facility] emergency center for evaluation. Troponin was negative. Creatinine 0.9, CBC unremarkable, INR 1.2, electrolytes within normal limits, alkaline phosphatase 143. ProBNP 3600. Urinalysis negative for urinary tract infection. Chest x-ray showed no acute process. EKG was atrial fibrillation can troll the right. Patient was started on IV Lasix 40 mg every 12 hours and Solu-Medrol, nebulizer treatments. Patient has been seen by pulmonary medicine for COPD exacerbation as well. Patient states that her breathing is improving, she still has increased shortness of breath with acti vity. Weight is down 3 kg. patient states that she does not weigh herself at home and she does not have a scale, director of casework services has provided her with a scale to take home at discharge. Review Of Systems: Constitutional: No fever, no chills, no night sweats. No weight change. Reports weakness, reports fatigue, no lethargy. No daytime sleepiness. EENT: No headache. No blurred vision or double vision, no loss of vision. No loss of Hearing, no ringing in the ears, no dizziness. No nasal drainage or congestion. No epistaxis. No sore throat. Lungs: Reports shortness of breath, reports cough, no sputum production. Reports wheezing. Cardiovascular: No chest pain, no lower extremity edema. No palpitations. No paroxysmal nocturnal dyspnea. Reports orthopnea. No lightheadedness or dizziness. No syncopal episodes. Abdominal: No abdominal pain. No nausea, vomiting. No diarrhea. No constipation. No bloody or tarry stools.. No loss of appetite. Genitourinary: No dysuria, increased frequency, urgency. No urinary retention. Musculoskeletal: No myalgias. No muscle weakness, no gait dysfunction, no frequent falls. No back pain. No neck pain. Integumentary: No wounds, no lesions. No rash or pruritus. No unusual bruising. No change in hair or nails. Neurologic: No aphasia. No facial droop. No change in mentation. No head injury. No headache. No paralysis. No paresthesia. Physical exam: Gen: This is an 88-year-old female. Patient is seen sitting up in a chair eating breakfast and appears to be comfortable and in no acute distress. No respiratory distress is noted. VS: Afebrile, heart rate 59, blood pressure 162/64, pulse ox 95% on 2 L nasal cannula HEENT: Head is atraumatic, normocephalic. Pupils equal, round. Sclerae is anicteric. NECK: Supple. No JVD. No lymphadenopathy. No thyromegaly. LUNGS: Scattered wheezes and rhonchi. No intercostal retractions. HEART: Irregular irregular rate and rhythm. No murmur. ABDOMEN: Soft. Bowel sounds are present. No masses. No tenderness. EXTREMITIES: No pedal edema. No calf tenderness. Dorsalis pedis +1 bilaterally. NEUROLOGICAL: Patient is awake, alert and oriented x3. Cranial nerves 2 through 12 are grossly intact. Assessment: Acute hypoxic respiratory failure related to acute exacerbation of COPD Acute on chronic heart failure, suspect systolic Hypertension Hyperlipidemia Chronic trial fibrillation on anticoagulation with Xarelto GERD Previous history of GI bleeding History of smoking, quit 40 years ago, [id number] smoking history Plan: IV Lasix will be decreased to 40 mg daily Resume Aldactone 25 mg daily Continue lisinopril 10 mg daily, Pravachol 40 mg daily, Xarelto 5 mg daily Obtain 2-D echocardiogram and Doppler study to assess cardiac structure and function Monitor I&O and daily weights Monitor electrolytes and renal function Thank you kindly for this consultation On further conditions to follow based upon clinical course Nurse practitioner note has been reviewed, I agree with documented findings and plan of care. Patient was seen and examined. Past Medical History Past Medical History: Atrial Fibrillation, Heart Failure, COPD, GERD/Reflux, GI Bleed, Hyperlipidemia, Hypertension Additional Past Medical History / Comment(s): restless leg syndrome History of Any Multi-Drug Resistant Organisms: None Reported Past Surgical History: Appendectomy, Cholecystectomy, Hysterectomy, Joint Replacement, Orthopedic Surgery Additional Past Surgical History / Comment(s): cataracts removed, bilateral knees Past Anesthesia/Blood Transfusion Reactions: No Reported Reaction Past Psychological History: Anxiety Smoking Status: Former smoker Past Alcohol Use History: None Reported Past Drug Use History: None Reported - Past Family History Father Family Medical History: Coronary Artery Disease (CAD) Additional Family Medical History / Comment(s): rhemuatic fever, at 59 of "bad heart" Mother Family Medical History: Cancer Additional Family Medical History / Comment(s): uterus Medications and Allergies Home Medications Medication Instructions Recorded Confirmed Type LORazepam [Ativan] 0.5 mg PO HS PRN 12/08/14 05/24/19 History Omeprazole [PriLOSEC] 20 mg PO AC-BRKFST 12/08/14 05/24/19 History Pravastatin Sodium [Pravachol] 40 mg PO HS 12/08/14 05/24/19 History Rivaroxaban [Xarelto] 15 mg PO HS 12/08/14 05/24/19 History Tiotropium 18 Mcg/Puff [Spiriva] 2 cap INHALATION RT-DAILY 12/08/14 05/24/19 History rOPINIRole HCL [Requip] 1 mg PO HS 12/08/14 05/24/19 History Cyanocobalamin (Vitamin B-12) 1,000 mcg PO DAILY 01/17/19 05/24/19 History [Vitamin B-12] Donepezil HCl [Aricept] 10 mg PO DAILY 01/17/19 05/24/19 History Furosemide [Lasix] 20 mg PO DAILY 01/17/19 05/24/19 History Latanoprost Ophth [Xalatan 0.005%] 1 drops LEFT EYE HS 01/17/19 05/24/19 History Levothyroxine Sodium [Synthroid] 25 mcg PO DAILY 01/17/19 05/24/19 History Lisinopril [Zestril] 10 mg PO HS 01/17/19 05/24/19 History Spironolactone [Aldactone] 25 mg PO DAILY 01/17/19 05/24/19 History Vit C/E/Zn/Coppr/Lutein/Zeaxan 1 cap PO DAILY 01/17/19 05/24/19 History [Preservision Areds 2 Softgel] Allergies Allergy/AdvReac Type Severity Reaction Status Date / Time Penicillins Allergy Rash/Hives Verified 05/24/19 18:45 sulfamethoxazole Allergy Rash/Hives Verified 05/24/19 18:45 [From Bactrim] trimethoprim [From Bactrim] Allergy Rash/Hives Verified 05/24/19 18:45 Physical Exam Vitals: Vital Signs Temp Pulse Pulse Resp BP Pulse Ox 05/26/19 03:10 98.7 F 59 L 18 162/64 95 05/25/19 23:20 98.2 F 73 18 115/57 92 L 05/25/19 20:44 72 05/25/19 20:32 72 05/25/19 20:31 72 05/25/19 20:17 60 95 05/25/19 19:30 98.3 F 65 18 143/62 94 L 05/25/19 16:32 78 05/25/19 16:23 74 05/25/19 15:28 96.9 F L 72 18 171/82 96 05/25/19 12:00 97.7 F 59 L 18 161/74 100 05/25/19 11:15 70 05/25/19 11:03 76 05/25/19 08:00 97.7 F 72 18 161/77 96 Intake and Output 05/25/19 05/26/19 05/26/19 22:59 06:59 14:59 Intake Total 360 Output Total 1960 300 Balance -1600 -300 Intake: Oral 360 Output: Urine 1960 300 Other: # Voids 1 Weight 80.9 kg Results 05/26/19 06:26 05/26/19 06:26 CBC 05/26/19 Range/Units 06:26 WBC 5.2 (3.8-10.6) k/uL RBC 4.27 (3.80-5.40) m/uL Hgb 12.8 (11.4-16.0) gm/dL Hct 37.6 (34.0-46.0) % Plt Count 160 (150-450) k/uL Comprehensive Metabolic Panel 05/26/19 Range/Units 06:26 Sodium 137 (137-145) mmol/L Potassium 4.2 (3.5-5.1) mmol/L Chloride 97 L (98-107) mmol/L Carbon Dioxide 31 H (22-30) mmol/L BUN 25 H (7-17) mg/dL Creatinine 0.96 (0.52-1.04) mg/dL Glucose 149 H (74-99) mg/dL Calcium 9.3 (8.4-10.2) mg/dL Current Medications Generic Name Dose Route Start Last Admin Trade Name Freq PRN Reason Stop Dose Admin Albuterol/Ipratropium 3 ml 05/24/19 17:36 05/25/19 11:01 Duoneb 0.5 Mg-3 Mg/3 Ml Soln INHALATION 3 ml Q6H PRN Administration Dyspnea Albuterol/Ipratropium 3 ml 05/25/19 12:00 05/25/19 20:17 Duoneb 0.5 Mg-3 Mg/3 Ml Soln INHALATION 3 ml RT-QID DALILA Administration Budesonide 1 mg 05/25/19 20:00 05/25/19 20:17 Pulmicort INHALATION 1 mg RT-BID DALILA Administration Cyanocobalamin 1,000 mcg 05/25/19 09:00 05/25/19 08:16 Vitamin B-12 PO 1,000 mcg DAILY DALILA Administration Donepezil HCl 10 mg 05/24/19 21:30 05/25/19 08:16 Aricept PO 10 mg DAILY DALILA Administration Formoterol Fumarate 20 mcg 05/25/19 20:00 05/25/19 20:17 Perforomist INHALATION 20 mcg RT-BID DALILA Administration Furosemide 40 mg 05/25/19 06:00 05/26/19 06:04 Lasix IV 40 mg Q12H DALILA Administration Guaifenesin 200 mg 05/25/19 10:53 05/25/19 20:05 Robitussin PO 200 mg Q6H PRN Administration Cough Insulin Aspart 0 unit 05/25/19 17:30 05/26/19 06:25 Novolog SQ Not Given ACHS [facility] Protocol Latanoprost 1 drops 05/25/19 21:00 05/25/19 20:04 Xalatan 0.005% LEFT EYE 1 drops HS DALILA Administration Levothyroxine Sodium 25 mcg 05/25/19 06:30 05/26/19 06:04 Synthroid PO 25 mcg 0630 DALILA Administration Lisinopril 10 mg 05/24/19 21:00 01/17/20 20:04 Zestril PO 10 mg HS DALILA Administration Lorazepam 0.5 mg 05/24/19 21:19 05/24/19 21:41 Ativan PO 0.5 mg HS PRN Administration Anxiety Methylprednisolone Sodium Succinate 40 mg 05/25/19 11:00 05/25/19 23:25 Solu-Medrol IV 40 mg Q8HR DALILA Administration Pantoprazole Sodium 40 mg 05/25/19 07:30 05/26/19 06:04 Protonix PO 40 mg AC-BRKFST DALILA Administration Pravastatin Sodium 40 mg 05/24/19 21:00 05/25/19 20:04 Pravachol PO 40 mg HS DALILA Administration Rivaroxaban 15 mg 05/24/19 21:00 05/25/19 20:04 Xarelto PO 15 mg HS DALILA Administration Ropinirole HCl 1 mg 05/24/19 21:30 05/25/19 20:04 Requip PO 1 mg HS DALILA Administration Intake and Output 05/25/19 05/26/19 05/26/19 22:59 06:59 14:59 Intake Total 360 Output Total 1960 300 Balance -1600 -300 Intake: Oral 360 Output: Urine 1959 300 Other: # Voids 1 Weight 80.9 kg 05/26/19 06:26 05/26/19 06:26
[2019-05-26] MEDS: SPIRONOLACTONE 25 MG TAB PO SCH (08:40)
[2019-05-26] MEDS: CYANOCOBALAMIN 500 MCG TAB PO SCH (08:40)
[2019-05-26] MEDS: DONEPEZIL 10 MG TAB PO SCH (08:40)
[2019-05-26] MEDS: methylPREDNISolone SOD SUCCI 40 MG/ML 1 ML VIAL IV SCH ×3 (08:40→23:15)
[2019-05-26 11:39] LABS: Glucose,Whole Blood 122 mg/dL (75-99)
--- NOTE | 2019-05-26 12:10 | PN ---
PROGRESS NOTE I am covering for Dr. Ma. DATE OF SERVICE: 05/26/2019 This 88-year-old woman with a past medical history of CHF was admitted with shortness of breath. The patient had mostly a combination of shortness of breath, possible COPD and CHF acute exacerbation. Patient is being closely monitored at this time. The patient is on IV Lasix on a daily basis. The patient is being closely monitored by Cardiology at this time. PAST MEDICAL HISTORY: Reviewed. REVIEW OF SYSTEMS: CARDIOVASCULAR SYSTEM: As mentioned earlier. RESPIRATORY SYSTEM: As mentioned earlier. GI: No nausea. : No dysuria. NERVOUS SYSTEM: No numbness or weakness. MEDICATIONS: Current medications are reviewed and include: 1. DuoNeb q.i.d. and p.r.n. 2. Pulmicort b.i.d. 3. Aricept daily. 4. Perforomist 20 mcg b.i.d. 5. Lasix 40 mg IV daily. 6. Synthroid 25 mcg. 7. Zestril. 8. Ativan. 9. Solu-Medrol 40 IV q.8. 10.Protonix. 11.Pravachol. 12.Xarelto. 13.Requip. 14.Aldactone. Doses reviewed. PHYSICAL EXAMINATION: The patient is alert and oriented x3. Pulse is 86, blood pressure 123/88, respiration 20, temperature 97.4, pulse ox 95% on 2 L. HEENT: Conjunctivae normal. NECK: No JVD. CARDIOVASCULAR: S1, S2 muffled. RESPIRATORY: Breath sounds diminished at the bases. A few scattered rhonchi and crackles. Expiratory wheezing also present. ABDOMEN: Soft, obese, nontender. No mass palpable. LEGS: No edema, no swelling. NERVOUS SYSTEM: Higher functions as mentioned earlier. Moves all 4 limbs. No focal deficits. LYMPHATICS: No lymphadenopathy of the neck, axillae or groin. SKIN: No ulcer, rash or bleeding. JOINTS: No active deforming arthropathy. LABS: Labs are WBC 5.2, hemoglobin 12.8. Sodium 137, potassium 4.2. Glucose 122. Alkaline phosphatase 143. ASSESSMENT: 1. Shortness of breath, possibly combination of chronic obstructive pulmonary disease acute exacerbation as well as congestive heart failure acute exacerbation, ejection fraction unknown. 2. Acute hypoxic respiratory failure, present on admission, secondary to above. 3. Hypertension. 4. Atrial fibrillation, rate controlled, chronic, persistent. 5. Anticoagulation with Xarelto. 6. History of gastroesophageal reflux disease. 7. History of gastrointestinal bleed. 8. Hyperlipidemia. 9. History of restless legs. 10.History of cholecystectomy. 11.History of degenerative joint disease. 12.History of anxiety. 13.History of nicotine dependence. RECOMMENDATIONS AND DISCUSSION: In this 88-year-old woman who presented with multiple complex medical issues, we will monitor the patient closely. Continue the current medications. Continue with bronchodilators. Continue steroids. Continue with diuretics. Recommend flu testing. Otherwise, continue rest of the medications. Closely follow with Cardiology and Pulmonology. Guarded prognosis. Further recommendations to follow. MMODL / IJN: [id number] /
--- NOTE | 2019-05-26 12:12 | P.PN ---
Subjective Progress Note Date: 05/26/19 Principal diagnosis: Acute hypoxic respiratory failure secondary to an acute exacerbation of chronic obstructive pulmonary disease 88-year-old female patient of Dr. Ma with past medical history of chronic congestive heart failure, chronic kidney disease, chronic A. fib on Xarelto, COPD, former history of smoking, who has been noticing gradual worsening of her dyspnea over several months. She states she has been experiencing decreased exercise capacity, she would walk from her car to her apartment about 50 feet and she would have to sit down and rest, she denied any chest pain. Last couple of days she has been experiencing significant worsening shortness of breath, orthopnea, patient has been coughing more so at night. Was increased wheezing, she is not normally on oxygen, has never seen a environmental remediation specialist, patient is on Spiriva for maintenance inhaler. Denied any swelling in her lower extremities, denied any fever or chills, denied any chest pain, denied any purulent sputum production. She states she had been evaluated by Dr. VC Gonzalez in the past for heart disease. Her chest x-ray was completely showed no definite acute radiographic process. Labs were completed and CBC was unremarkable, INR is 1.2, electrolytes were within normal limits, BUN is 18 creatinine 0.90, [place] ALT were within normal limits, alkaline phosphatase is 143, troponin was 0.014, proBNP is 3600, urinalysis showed trace glucose, and rare bacteria, no significant sign of infection. Patient was started on diuretics, breathing treatments, and were consulted for acute COPD exacerbation The patient is seen today 05/26/2019 in follow-up on the selective care unit. Awake and alert in no acute distress. Maintaining O2 saturations in the mid 90s on 2 L/m per nasal cannula. She's afebrile. Hemodynamically stable. White count 5.2. Hemoglobin 12.8. Sodium 137. Potassium 4.2. Bicarb 31. Creatinine 0.96. She remains on DuoNeb inhalations, Perforomist and Pulmicort inhalations, IV Solu-Medrol. She is also on IV diuretics and diuresing well. Anticoagulated with Xarelto. Objective - Vital Signs Vital signs: Vital Signs Temp 97.4 F L 05/26/19 11:38 Pulse 86 05/26/19 11:38 Resp 20 05/26/19 11:38 BP 123/88 05/26/19 11:38 Pulse Ox 95 05/26/19 11:38 Intake & Output 05/25/19 05/26/19 05/26/19 18:59 06:59 18:59 Intake Total 1090 240 Output Total 2360 700 400 Balance -1270 -700 -160 Weight 82.6 kg 80.9 kg Intake: IV 10 0.9 10 Oral 1080 240 Output: Urine 2360 700 400 Other: Voiding Method Toilet # Voids 1 1 1 - Exam GENERAL EXAM: Alert, very pleasant, 88-year-old white female, on 2 L of oxygen with a pulse ox of 95%, audibly wheezy, and mildly dyspneic, comfortable in no apparent distress. HEAD: Normocephalic/atraumatic. EYES: Normal reaction of pupils, equal size. Conjunctiva pink, sclera white. NOSE: Clear with pink turbinates. THROAT: No erythema or exudates. NECK: No masses, no JVD, no thyroid enlargement, no adenopathy. CHEST: No chest wall deformity. Symmetrical expansion. LUNGS: Equal air entry with bilateral scattered wheezes CVS: Regular rate and rhythm, normal S1 and S2, no gallops, no murmurs, no rubs ABDOMEN: Soft, nontender. No hepatosplenomegaly, normal bowel sounds, no guarding or rigidity. EXTREMITIES: No clubbing, no edema, no cyanosis, 2+ pulses and upper and lower extremities. MUSCULOSKELETAL: Muscle strength and tone normal. SPINE: No scoliosis or deformity SKIN: No rashes CENTRAL NERVOUS SYSTEM: No focal deficits, tone is normal in all 4 extremities. PSYCHIATRIC: Alert and oriented -3. Appropriate affect. Intact judgment and insight. - Labs CBC & Chem 7: 05/26/19 06:26 05/26/19 06:26 Labs: Abnormal Lab Results - Last 24 Hours (Table) 05/25/19 05/25/19 05/26/19 Range/Units 16:28 20:21 06:21 Lymphocytes # (1.0-4.8) k/uL Chloride (98-107) mmol/L Carbon Dioxide (22-30) mmol/L BUN (7-17) mg/dL Glucose (74-99) mg/dL POC Glucose (mg/dL) 136 H 163 H 143 H (75-99) mg/dL 05/26/19 05/26/19 05/26/19 Range/Units 06:26 06:26 11:38 Lymphocytes # 0.3 L (1.0-4.8) k/uL Chloride 97 L (98-107) mmol/L Carbon Dioxide 31 H (22-30) mmol/L BUN 25 H (7-17) mg/dL Glucose 149 H (74-99) mg/dL POC Glucose (mg/dL) 122 H (75-99) mg/dL Assessment and Plan Assessment: #1. Acute hypoxic respiratory failure related to acute exacerbation of COPD #2. Acute exacerbation of CHF with unknown EF, remains on IV diuretics #3. Hypertension #4. Atrial fibrillation on anticoagulation with Xarelto #5. GERD/reflux #6. COPD #7. Hyperlipidemia #8. Previous history of GI bleeding #9. 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 Montenegro. She is a bit improved today compared to yesterday. Continue the current treatment plan. We will continue to follow. I, the cosigning physician, performed a history & physical examination of the patient. Lungs sounds with bilateral end expiratory wheeze. Maintaining good O2 saturations in the 90s on liters per minute per nasal cannula. I discussed the assessment and plan of care with my nurse practitioner, Tasha Valverde. I attest to the above note as dictated by her.
[2019-05-26 16:46] LABS: Glucose,Whole Blood 158 mg/dL (75-99)
[2019-05-26] MEDS: ACETAMINOPHEN TAB 500 MG TAB PO PRN (18:19)
[2019-05-26 20:25] LABS: Glucose,Whole Blood 156 mg/dL (75-99)
[2019-05-26] MEDS: RIVAROXABAN 15 MG TAB PO SCH (20:33)
[2019-05-26] MEDS: LISINOPRIL 10 MG TAB PO SCH (20:33)
[2019-05-26] MEDS: PRAVASTATIN SODIUM 40 MG TAB PO SCH (20:33)
[2019-05-26] MEDS: LATANOPROST 0.005% OPHTH DROPS 2.5 ML BTL LEFT EYE SCH (20:34)
[2019-05-26] MEDS: guaiFENesin SYRUP 100MG/5ML 200 MG/10 ML CUP PO PRN (23:29)
[2019-05-27 05:55] LABS: Glucose,Whole Blood 129 mg/dL (75-99)
[2019-05-27] MEDS: INSULIN ASPART (NovoLOG) 100 UNIT/ML VIAL SQ SCH ×4 (05:58→20:07)
[2019-05-27] MEDS: PANTOPRAZOLE 40 MG TABLET PO SCH (06:03)
[2019-05-27] MEDS: LEVOTHYROXINE 25 MCG TAB PO SCH (06:03)
[2019-05-27 06:28] LABS: Calcium 8.9 mg/dL (8.4-10.2); Potassium 4.6 mmol/L (3.5-5.1)
[2019-05-27 06:32] LABS: Basophils % (A) 0 %; Eosinophils % (A) 0 %; HCT 37.8 % (34.0-46.0); HGB 12.4 gm/dL (11.4-16.0); Lymphocytes # (A) 0.2 k/uL (1.0-4.8); Lymphocytes % (A) 2 %; MCH 29.1 pg (25.0-35.0); MCHC 32.8 g/dL (31.0-37.0); MCV 88.7 fL (80.0-100.0); Mean Platelet Volume 8.5; Monocytes # (A) 0.3 k/uL (0-1.0); Monocytes % (A) 3 %; Neutrophils # (A) 9.9 k/uL (1.3-7.7); Neutrophils % (A) 94 %; Platelet Count 162 k/uL (150-450); RBC 4.26 m/uL (3.80-5.40); RDW 12.2 % (11.5-15.5); WBC 10.5 k/uL (3.8-10.6)
[2019-05-27] MEDS: IPRATROPIUM-ALBUTEROL 3 ML NEB INHALATION SCH ×5 (07:09→19:34)
[2019-05-27] MEDS: BUDESONIDE 1 MG/2 ML NEBU INHALATION SCH ×2 (07:09→19:32)
[2019-05-27] MEDS: FORMOTEROL FUMARATE 20 MCG/2 ML NEBU INHALATION SCH ×2 (07:09→19:32)
--- NOTE | 2019-05-27 08:35 | P.PN ---
Subjective Progress Note Date: 05/27/19 This is an 88-year-old female patient of Dr. VC Gonzalez with past medical history of chronic congestive heart failure, hypertension, hyperlipidemia, chronic kidney disease, chronic A. fib on Xarelto, COPD, former history of smoking, gastroesophageal reflux disease, dementia. Patient states she was followed with Dr. Gonzalez 5 weeks ago. She denies any medication changes at that time. Patient complains of worsening of her dyspnea over several months along with shortness of breath with exertion, patient sleeping with 2 pillows. She also complains of a wheezing. Symptoms worsened over the last couple of days. Patient came into [facility] emergency [facility] for evaluation. Troponin was negative. Creatinine 0.9, CBC unremarkable, INR 1.2, electrolytes within normal limits, alkaline phosphatase 143. ProBNP 3600. Urinalysis negative for urinary tract infection. Chest x-ray showed no acute process. EKG was atrial fibrillation can troll the right. Patient was started on IV Lasix 40 mg every 12 hours and Solu-Medrol, nebulizer treatments. Patient has been seen by pulmonary medicine for COPD exacerbation as well. Patient states that her breathing is improving, she still has increased shortness of breath with activity. Weight is down 3 kg. patient states that she does not weigh herself at home and she does not have a scale, case management rn has provided her with a scale to take home at discharge. 05/27: Patient is seen today in recheck. Her shortness of breath is improving and she states she is doing well ambulating to the bathroom with a walker. She has increasing coughing today and complaining of dry mouth and nose. Patient is on Lasix 40 mg IV every day and she states she has had good urine output. Patient seems to have more wheezing today from yesterday. Repeat lab work reveals unremarkable CBC. Potassium 4.9, BUN 34 and creatinine 0.95. Physical exam: Gen: This is an 88-year-old female. Patient is seen sitting up in a chair eating breakfast and appears to be comfortable and in no acute distress. No respiratory distress is noted. VS: Afebrile, heart rate 72, blood pressure 148/77, pulse ox 97% on 2 L nasal cannula HEENT: Head is atraumatic, normocephalic. Pupils equal, round. Sclerae is anicteric. NECK: Supple. No JVD. No lymphadenopathy. No thyromegaly. LUNGS: Scattered wheezes and rhonchi. No intercostal retractions. HEART: Irregular irregular rate and rhythm. No murmur. ABDOMEN: Soft. Bowel sounds are present. No masses. No tenderness. EXTREMITIES: No pedal edema. No calf tenderness. Dorsalis pedis +1 bilaterally. NEUROLOGICAL: Patient is awake, alert and oriented x3. Cranial nerves 2 through 12 are grossly intact. Assessment: Acute hypoxic respiratory failure related to acute exacerbation of COPD Acute on chronic heart failure, suspect systolic Hypertension Hyperlipidemia Chronic trial fibrillation on anticoagulation with Xarelto GERD Previous history of GI bleeding History of smoking, quit 40 years ago, [id number] smoking history Plan: Continue IV Lasix 40 mg daily Continue Aldactone 25 mg daily Continue lisinopril 10 mg daily, Pravachol 40 mg daily, Xarelto 5 mg daily Obtain 2-D echocardiogram and Doppler study to assess cardiac structure and function Monitor I&O and daily weights Monitor electrolytes and renal function Thank you kindly for this consultation Further recommendations to follow based upon clinical course Nurse practitioner note has been reviewed, I agree with documented findings and plan of care. Patient was seen and examined. Objective - Vital Signs Vital signs: Vital Signs Temp 97.8 F 05/27/19 03:10 Pulse 74 05/27/19 07:30 Resp 18 05/27/19 03:10 BP 148/77 05/27/19 03:10 Pulse Ox 97 05/27/19 03:10 Intake & Output 05/26/19 05/27/19 05/27/19 18:59 06:59 18:59 Intake Total 480 Output Total 1950 650 Balance -1470 -650 Weight 81.5 kg Intake: Oral 480 Output: Urine 1950 650 Other: Voiding Method Toilet Toilet # Voids 1 - Labs CBC & Chem 7: 05/27/19 05:31 05/27/19 05:31 Labs: Abnormal Lab Results - Last 24 Hours (Table) 05/26/19 05/26/19 05/26/19 Range/Units 11:38 16:44 20:22 Neutrophils # (1.3-7.7) k/uL Lymphocytes # (1.0-4.8) k/uL Sodium (137-145) mmol/L Chloride (98-107) mmol/L Carbon Dioxide (22-30) mmol/L BUN (7-17) mg/dL Glucose (74-99) mg/dL POC Glucose (mg/dL) 122 H 158 H 156 H (75-99) mg/dL 05/27/19 05/27/19 05/27/19 Range/Units 05:31 05:31 05:51 Neutrophils # 9.9 H (1.3-7.7) k/uL Lymphocytes # 0.2 L (1.0-4.8) k/uL Sodium 134 L (137-145) mmol/L Chloride 95 L (98-107) mmol/L Carbon Dioxide 31 H (22-30) mmol/L BUN 34 H (7-17) mg/dL Glucose 144 H (74-99) mg/dL POC Glucose (mg/dL) 129 H (75-99) mg/dL
[2019-05-27] MEDS: SPIRONOLACTONE 25 MG TAB PO SCH (08:49)
[2019-05-27] MEDS: DONEPEZIL 10 MG TAB PO SCH (08:49)
[2019-05-27] MEDS: CYANOCOBALAMIN 500 MCG TAB PO SCH (08:49)
[2019-05-27] MEDS: methylPREDNISolone SOD SUCCI 40 MG/ML 1 ML VIAL IV SCH ×3 (08:49→23:01)
[2019-05-27] MEDS: ACETAMINOPHEN TAB 500 MG TAB PO PRN (08:49)
[2019-05-27] MEDS: FUROSEMIDE 10 MG/ML 4 ML VIAL IV SCH (08:50)
[2019-05-27 11:53] LABS: Glucose,Whole Blood 118 mg/dL (75-99)
--- NOTE | 2019-05-27 13:19 | P.PN ---
Subjective Progress Note Date: 05/27/19 Principal diagnosis: Acute hypoxic respiratory failure secondary to an acute exacerbation of chronic obstructive pulmonary disease 88-year-old female patient of Dr. Ma with past medical history of chronic congestive heart failure, chronic kidney disease, chronic A. fib on Xarelto, COPD, former history of smoking, who has been noticing gradual worsening of her dyspnea over several months. She states she has been experiencing decreased exercise capacity, she would walk from her car to her apartment about 50 feet and she would have to sit down and rest, she denied any chest pain. Last couple of days she has been experiencing significant worsening shortness of breath, orthopnea, patient has been coughing more so at night. Was increased wheezing, she is not normally on oxygen, has never seen a rating specialist, patient is on Spiriva for maintenance inhaler. Denied any swelling in her lower extremities, denied any fever or chills, denied any chest pain, denied any purulent sputum production. She states she had been evaluated by Dr. VC Gonzalez in the past for heart disease. Her chest x-ray was completely showed no definite acute radiographic process. Labs were completed and CBC was unremarkable, INR is 1.2, electrolytes were within normal limits, BUN is 18 creatinine 0.90, [place] ALT were within normal limits, alkaline phosphatase is 143, troponin was 0.014, proBNP is 3600, urinalysis showed trace glucose, and rare bacteria, no significant sign of infection. Patient was started on diuretics, breathing treatments, and were consulted for acute COPD exacerbation The patient is seen today 05/26/2019 in follow-up on the selective care unit. Awake and alert in no acute distress. Maintaining O2 saturations in the mid 90s on 2 L/m per nasal cannula. She's afebrile. Hemodynamically stable. White count 5.2. Hemoglobin 12.8. Sodium 137. Potassium 4.2. Bicarb 31. Creatinine 0.96. She remains on DuoNeb inhalations, Perforomist and Pulmicort inhalations, IV Solu-Medrol. She is also on IV diuretics and diuresing well. Anticoagulated with Xarelto. The patient is seen today 05/27/2019 in follow-up on the selective care unit. She is currently sitting up in a chair at the bedside. Awake and alert in no acute distress. Breathing a bit easier today compared to yesterday. Maintaining good O2 saturations in the mid 90s on room air. She's afebrile. Hemodynamically stable. She remains on IV diuretics and currently in a negative balance. White count 10.5. Hemoglobin 12.4. Sodium 134. Potassium 4.6. Creatinine 0.95. She's been up ambulating in the hallway without acute distress. Objective - Vital Signs Vital signs: Vital Signs Temp 98.5 F 05/27/19 11:57 Pulse 60 05/27/19 11:57 Resp 20 05/27/19 11:57 BP 145/76 05/27/19 11:57 Pulse Ox 96 05/27/19 11:57 Intake & Output 05/26/19 05/27/19 05/27/19 18:59 06:59 18:59 Intake Total 480 240 Output Total 1950 650 Balance -1470 -650 240 Weight 81.5 kg Intake: Oral 480 240 Output: Urine 1950 650 Other: Voiding Method Toilet Toilet Toilet # Voids 1 300 - Exam GENERAL EXAM: Alert, very pleasant, 88-year-old white female, on room air with a pulse ox of 96%, comfortable in no apparent distress. HEAD: Normocephalic/atraumatic. EYES: Normal reaction of pupils, equal size. Conjunctiva pink, sclera white. NOSE: Clear with pink turbinates. THROAT: No erythema or exudates. NECK: No masses, no JVD, no thyroid enlargement, no adenopathy. CHEST: No chest wall deformity. Symmetrical expansion. LUNGS: Equal air entry with bilateral scattered wheezes CVS: Regular rate and rhythm, normal S1 and S2, no gallops, no murmurs, no rubs ABDOMEN: Soft, nontender. No hepatosplenomegaly, normal bowel sounds, no guarding or rigidity. EXTREMITIES: No clubbing, no edema, no cyanosis, 2+ pulses and upper and lower extremities. MUSCULOSKELETAL: Muscle strength and tone normal. SPINE: No scoliosis or deformity SKIN: No rashes CENTRAL NERVOUS SYSTEM: No focal deficits, tone is normal in all 4 extremities. PSYCHIATRIC: Alert and oriented -3. Appropriate affect. Intact judgment and insight. - Labs CBC & Chem 7: 05/27/19 05:31 05/27/19 05:31 Labs: Abnormal Lab Results - Last 24 Hours (Table) 05/26/19 05/26/1905/27/20 Range/Units 16:44 20:22 05:31 Neutrophils # 9.9 H (1.3-7.7) k/uL Lymphocytes # 0.2 L (1.0-4.8) k/uL Sodium (137-145) mmol/L Chloride (98-107) mmol/L Carbon Dioxide (22-30) mmol/L BUN (7-17) mg/dL Glucose (74-99) mg/dL POC Glucose (mg/dL) 158 H 156 H (75-99) mg/dL 05/27/19 05/27/19 05/27/19 Range/Units 05:31 05:51 11:42 Neutrophils # (1.3-7.7) k/uL Lymphocytes # (1.0-4.8) k/uL Sodium 134 L (137-145) mmol/L Chloride 95 L (98-107) mmol/L Carbon Dioxide 31 H (22-30) mmol/L BUN 34 H (7-17) mg/dL Glucose 144 H (74-99) mg/dL POC Glucose (mg/dL) 129 H 118 H (75-99) mg/dL Assessment and Plan Assessment: #1. Acute hypoxic respiratory failure related to acute exacerbation of COPD #2. Acute exacerbation of CHF with unknown EF, remains on IV diuretics #3. Hypertension #4. Atrial fibrillation on anticoagulation with Xarelto #5. GERD/reflux #6. COPD #7. Hyperlipidemia #8. Previous history of GI bleeding #9. 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 Montenegro. She is doing much better today compared to yesterday. On room air. Continue the current treatment plan. Remains on IV diuretics. Echocardiogram pending. We will continue to follow. I, the cosigning physician, performed a history & physical examination of the patient. Lungs sounds with faint bilateral end expiratory wheeze, diminished. Maintaining good O2 saturations in the 90s on room air. I discussed the assessment and plan of care with my nurse practitioner, Tasha Valverde. I attest to the above note as dictated by her.
--- NOTE | 2019-05-27 15:17 | PN ---
PROGRESS NOTE DATE OF SERVICE: 05/27/2019 I am covering for Dr. Ma. This 88-year-old woman was admitted with shortness of breath, COPD, CHF acute exacerbation, being closely monitored. No chest pain. No palpitations. No fever. The patient is on IV Lasix now. PHYSICAL EXAM: Alert and oriented x3. Pulse is 60. Blood pressure 145/76, respirations 20, temperature 98.4, pulse ox 98% on room air. HEENT: Conjunctivae normal. NECK: No JVD. CARDIOVASCULAR: S1, S2 muffled. RESPIRATION: Breath sounds diminished in the bases. A few scattered rhonchi and crackles. ABDOMEN: Soft and nontender. NERVOUS SYSTEM: No focal deficits. LABORATORY DATA: WBC 10.2, hemoglobin 12.4. ASSESSMENT: 1. Shortness of breath possibly combination of chronic obstructive pulmonary disease acute exacerbation as well as congestive heart failure acute exacerbation. Ejection fraction unknown. 2. Acute hypoxic respiratory failure present on admission, secondary to above. 3. Hypertension. 4. Atrial fibrillation, rate controlled, chronic, persistent. 5. Anticoagulation on Xarelto. 6. History of gastroesophageal reflux disease. 7. History of gastrointestinal bleed. 8. Hyperlipidemia. 9. History of restless legs syndrome. 10.History of cholecystectomy. 11.History of degenerative joint disease. 12.History of anxiety. 13.History of nicotine dependence. RECOMMENDATIONS AND DISCUSSION: Recommend to continue current medications, management and symptomatic treatment. Continue the bronchodilators. Continue with continue with diuretics. Dr. Ma will follow tomorrow. Continue the rest of medications. See orders for details. MMODL / IJN: [id number] /
--- NOTE | 2019-05-27 17:00 | ECHOF ---
Referral Reason:lv fx MEASUREMENTS -------- HEIGHT: 165.1 cm WEIGHT: 80.7 kg BP: RVIDd: 3.8 cm (< 3.3) IVSd: 1.6 cm (0.6 - 1.1) LVIDd: 4.0 cm (3.9 - 5.3) LVPWd: 1.3 cm (0.6 - 1.1) IVSs: 1.5 cm LVIDs: 2.6 cm LVPWs: 2.0 cm LA Diam: 6.4 cm (2.7 - 3.8) LAESV Index (A-L): 63.62 ml/m Ao Diam: 2.7 cm (2.0 - 3.7) AV Cusp: 1.2 cm (1.5 - 2.6) LA Diam: 7.1 cm (2.7 - 3.8) MV EXCURSION: 22.126 mm (> 18.000) MV EF SLOPE: 158 mm/s (70 - 150) RAP: 15.00 mmHg RVSP: 54.45 mmHg FINDINGS -------- Atrial fibrillation. This was a technically good study. The left ventricular size is normal. There is mild concentric left ventricular hypertrophy. Overa ll left ventricular systolic function is low-normal with, an EF between 50 - 55 %. Left ventricular fillimg pressure cannot be estimated due to Atrial fibrillation. The right ventricle is normal in size. The left atrium is markedly dilated. LA is severely dilated >40 ml/m2 The right atrial size is normal. There is mild aortic valve sclerosis. Trace amount of aortic regurgitation. The mitral valve leaflets are mildly thickened. Mild mitral annular calcification present. Modera te mitral regurgitation is present. An echodensity attched to the LA side of the anterior mitral le aflet was seen. Mild tricuspid regurgitation present. There is moderate pulmonary hypertension. The right ventric ular systolic pressure, as measured by Doppler, is 54.45mmHg. Trace/mild (physiologic) pulmonic regurgitation. The aortic root size is normal. There is no pericardial effusion. CONCLUSIONS -------- 1. Atrial fibrillation. 2. This was a technically good study. 3. The left ventricular size is normal. 4. There is mild concentric left ventricular hypertrophy. 5. Overall left ventricular systolic function is low-normal with, an EF between 50 - 55 %. 6. Left ventricular fillimg pressure cannot be estimated due to Atrial fibrillation. 7. The right ventricle is normal in size. 8. The left atrium is markedly dilated. 9. LA is severely dilated >40 ml/m2 10. The right atrial size is normal. 11. There is mild aortic valve sclerosis. 12. Trace amount of aortic regurgitation. 13. The mitral valve leaflets are mildly thickened. 14. Mild mitral annular calcification present. 15. Moderate mitral regurgitation is present. 16. An echodensity attched to the LA side of the anterior mitral leaflet was seen. 17. Mild tricuspid regurgitation present. 18. There is moderate pulmonary hypertension. 19. The right ventricular systolic pressure, as measured by Doppler, is 54.45mmHg. 20. Trace/mild (physiologic) pulmonic regurgitation. 21. The aortic root size is normal. 22. There is no pericardial effusion. VETERANS SERVICE REPRESENTATIVE: Vangie Yusuf RDCS
[2019-05-27 17:01] LABS: Glucose,Whole Blood 120 mg/dL (75-99)
[2019-05-27 20:04] LABS: Glucose,Whole Blood 158 mg/dL (75-99)
[2019-05-27] MEDS: LATANOPROST 0.005% OPHTH DROPS 2.5 ML BTL LEFT EYE SCH (20:06)
[2019-05-27] MEDS: RIVAROXABAN 15 MG TAB PO SCH (20:07)
[2019-05-27] MEDS: PRAVASTATIN SODIUM 40 MG TAB PO SCH (20:07)
[2019-05-27] MEDS: LISINOPRIL 10 MG TAB PO SCH (20:07)
[2019-05-28 06:07] LABS: Glucose,Whole Blood 138 mg/dL (75-99)
[2019-05-28 06:13] LABS: Basophils % (A) 0 %; Eosinophils % (A) 0 %; HCT 37.8 % (34.0-46.0); HGB 12.8 gm/dL (11.4-16.0); Lymphocytes # (A) 0.3 k/uL (1.0-4.8); Lymphocytes % (A) 4 %; MCH 29.6 pg (25.0-35.0); MCHC 33.7 g/dL (31.0-37.0); MCV 87.8 fL (80.0-100.0); Mean Platelet Volume 8.8; Monocytes # (A) 0.3 k/uL (0-1.0); Monocytes % (A) 4 %; Neutrophils # (A) 6.5 k/uL (1.3-7.7); Neutrophils % (A) 91 %; Platelet Count 175 k/uL (150-450); RBC 4.31 m/uL (3.80-5.40); WBC 7.2 k/uL (3.8-10.6)
[2019-05-28 06:15] LABS: Potassium 4.4 mmol/L (3.5-5.1)
[2019-05-28] MEDS: INSULIN ASPART (NovoLOG) 100 UNIT/ML VIAL SQ SCH ×4 (06:15→21:49)
[2019-05-28] MEDS: LEVOTHYROXINE 25 MCG TAB PO SCH (06:15)
[2019-05-28] MEDS: PANTOPRAZOLE 40 MG TABLET PO SCH (06:15)
[2019-05-28] MEDS: BUDESONIDE 1 MG/2 ML NEBU INHALATION SCH ×2 (08:43→19:45)
[2019-05-28] MEDS: FORMOTEROL FUMARATE 20 MCG/2 ML NEBU INHALATION SCH ×2 (08:43→19:45)
[2019-05-28] MEDS: IPRATROPIUM-ALBUTEROL 3 ML NEB INHALATION SCH ×4 (08:43→19:45)
[2019-05-28] MEDS: DONEPEZIL 10 MG TAB PO SCH (09:49)
[2019-05-28] MEDS: SPIRONOLACTONE 25 MG TAB PO SCH (09:49)
[2019-05-28] MEDS: CYANOCOBALAMIN 500 MCG TAB PO SCH (09:49)
[2019-05-28] MEDS: methylPREDNISolone SOD SUCCI 40 MG/ML 1 ML VIAL IV SCH (09:50)
[2019-05-28] MEDS: FUROSEMIDE 10 MG/ML 4 ML VIAL IV SCH (09:50)
[2019-05-28 11:51] LABS: Glucose,Whole Blood 117 mg/dL (75-99)
[2019-05-28] MEDS: DOCUSATE 100 MG CAP PO SCH ×2 (12:49→20:11)
[2019-05-28] MEDS: SENNOSIDES-DOCUSATE SODIUM 1 EACH TAB PO SCH ×2 (12:49→20:12)
--- NOTE | 2019-05-28 14:40 | P.PN ---
Subjective Progress Note Date: 05/28/19 Principal diagnosis: Acute hypoxic respiratory failure secondary to an acute exacerbation of COPD 88-year-old female patient of Dr. Ma with past medical history of chronic congestive heart failure, chronic kidney disease, chronic A. fib on Xarelto, COPD, former history of smoking, who has been noticing gradual worsening of her dyspnea over several months. She states she has been experiencing decreased exercise capacity, she would walk from her car to her apartment about 50 feet and she would have to sit down and rest, she denied any chest pain. Last couple of days she has been experiencing significant worsening shortness of breath, orthopnea, patient has been coughing more so at night. Was increased wheezing, she is not normally on oxygen, has never seen a meeting specialist, patient is on Spiriva for maintenance inhaler. Denied any swelling in her lower ext remities, denied any fever or chills, denied any chest pain, denied any purulent sputum production. She states she had been evaluated by Dr. VC Gonzalez in the past for heart disease. Her chest x-ray was completely showed no definite acute radiographic process. Labs were completed and CBC was unremarkable, INR is 1.2, electrolytes were within normal limits, BUN is 18 creatinine 0.90, [place] ALT we re within normal limits, alkaline phosphatase is 143, troponin was 0.014, proBNP is 3600, urinalysis showed trace glucose, and rare bacteria, no significant sign of infection. Patient was started on diuretics, breathing treatments, and were consulted for acute COPD exacerbation The patient is seen today 05/26/2019 in follow-up on the selective care unit. Awake and alert in no acute distress. Maintaining O2 saturations in the mid 90s on 2 L/m per nasal cannula. She's afebrile. Hemodynamically stable. White count 5.2. Hemoglobin 12.8. Sodium 137. Potassium 4.2. Bicarb 31. Creatinine 0.96. She remains on DuoNeb inhalations, Perforomist and Pulmicort inhalations, IV Solu-Medrol. She is also on IV diuretics and diuresing well. Anticoagulated with Xarelto. The patient is seen today 05/27/2019 in follow-up on the selective care unit. She is currently sitting up in a chair at the bedside. Awake and alert in no acute distress. Breathing a bit easier today compared to yesterday. Maintaining good O2 saturations in the mid 90s on room air. She's afebrile. Hemodynamically stable. She remains on IV diuretics and currently in a negative balance. White count 10.5. Hemoglobin 12.4. Sodium 134. Potassium 4.6. Creatinine 0.95. She's been up ambulating in the hallway without acute distress. On 05/28/2019 patient seen in follow-up on selective care unit, she is seen si tting up in the chair, in no acute distress, pulse ox is 94%, no fever of chills, hemodynamically stable, she states she is feeling better, she sounds better no specific complaints, no chest pain, no worsening shortness of breath. Echocardiogram showed preserved low-normal EF of 50-55%, moderate mitral regurgitation, echodensity attached to the LAD side of the anterior mitral leaflet, mild tricuspid regurg, moderate pulmonary hypertension with right-sided pressures of 54.4 mmHg. Patient continues on IV Lasix currently just once daily 40 mg, she is maintaining negative fluid balance. Today's labs have been reviewed, CBC is unremarkable, sodium is 132, potassium is 4.4, chloride is 95, CO2 is 30, B1 is 34 creatinine 0.91. She is doing well, cardiology is following. Objective - Vital Signs Vital signs: Vital Signs Temp 97.7 F 05/28/19 08:00 Pulse 64 05/28/19 12:53 Resp 19 05/28/19 12:00 BP 153/66 05/28/19 12:00 Pulse Ox 94 L 05/28/19 12:00 Intake & Output 05/27/19 05/28/19 05/28/19 18:59 06:59 18:59 Intake Total 720 120 240 Output Total 450 1800 900 Balance 270 -1680 -660 Weight 83.1 kg Intake: Oral 720 120 240 Output: Urine 450 1800 900 Other: Voiding Method Toilet Toilet # Voids 1 1 2 # Bowel Movements 0 - Exam GENERAL EXAM: Alert, very pleasant, 88-year-old white female, on room air with a pulse ox of 96%, sitting up in the recliner, comfortable in no apparent distress. HEAD: Normocephalic/atraumatic. EYES: Normal reaction of pupils, equal size. Conjunctiva pink, sclera white. NOSE: Clear with pink turbinates. THROAT: No erythema or exudates. NECK: No masses, no JVD, no thyroid enlargement, no adenopathy. CHEST: No chest wall deformity. Symmetrical expansion. LUNGS: Equal air entry with without wheezes, rhonchi or rales CVS: Regular rate and rhythm, normal S1 and S2, no gallops, no murmurs, no rubs ABDOMEN: Soft, nontender. No hepatosplenomegaly, normal bowel sounds, no guarding or rigidity. EXTREMITIES: No clubbing, no edema, no cyanosis, 2+ pulses and upper and lower extremities. MUSCULOSKELETAL: Muscle strength and tone normal. SPINE: No scoliosis or deformity SKIN: No rashes CENTRAL NERVOUS SYSTEM: Alert and oriented -3. No focal deficits, tone is normal in all 4 extremities. PSYCHIATRIC: Alert and oriented -3. Appropriate affect. Intact judgment and insight. - Labs CBC & Chem 7: 05/28/19 05:34 05/28/19 05:34 Labs: Abnormal Lab Results - Last 24 Hours (Table) 05/27/19 05/27/19 05/28/19 Range/Units 16:53 20:03 05:34 Lymphocytes # 0.3 L (1.0-4.8) k/uL Sodium (137-145) mmol/L Chloride (98-107) mmol/L BUN (7-17) mg/dL Glucose (74-99) mg/dL POC Glucose (mg/dL) 120 H 158 H (75-99) mg/dL 05/28/19 05/28/19 05/28/19 Range/Units 05:34 06:05 11:43 Lymphocytes # (1.0-4.8) k/uL Sodium 132 L (137-145) mmol/L Chloride 95 L (98-107) mmol/L BUN 34 H (7-17) mg/dL Glucose 146 H (74-99) mg/dL POC Glucose (mg/dL) 138 H 117 H (75-99) mg/dL Assessment and Plan Plan: Assessment: #1. Acute hypoxic respiratory failure related to acute exacerbation of COPD #2. Acute exacerbation of CHF with diastolic dysfunction, moderate mitral regurgitation and moderate hypertension with right-sided pressures of 54.4 mmHg #3. Hypertension #4. Atrial fibrillation on anticoagulation with Xarelto #5. GERD/reflux #6. COPD #7. Hyperlipidemia #8. Previous history of GI bleeding #9. History of smoking, in remission for last 40 years, does carry [id number] smoking history Plan: We'll transition the IV steroids to oral prednisone, continue with nebulized bronchodilators, diuretics per cardiology, patient is in negative fluid balance, no complaints of dyspnea, no completed chest pain, breathing much easier, increase activity as tolerated. Echocardiogram results have been noted, from pulmonary perspective she is much improved, and could be considered for discharge home once cleared by cardiology I performed a history & physical examination of the patient and discussed their management with my nurse practitioner, Sara Chau. I reviewed the nurse practitioner's note and agree with the documented findings and plan of care. Lung sounds are positive for diffuse wheezes throughout the lung fall. The findings and the impression was discussed with the patient. I attest to the documentation by the nurse practitioner. Time with Patient: Less than 30
--- NOTE | 2019-05-28 16:32 | P.PN ---
Subjective Progress Note Date: 05/28/19 88-year-old female with history of atrial fibrillation, CHF, COPD, gastroesophageal reflux disease, GI bleed, former nicotine dependence and multiple other medical issues presented to the ER with complaints of worsening shortness of breath over the last couple of days accompanied by nonproductive cough, peripheral edema ,no chills, no diaphoresis, febrile. Initially evaluated at outside clinic and referred to the ER for further evaluation. Upon arrival patient using accessory muscles, tachypneic, with O2 sat of 90% on room air. EKG report atrial fibrillation with PVCs, nonspecific ST and T waves, t roponin 0.014, BNP 3600. Denies any chest pain, palpitations. Labs essentially unremarkable. Afebrile, normal WBC, INR 1.2 BUN 18 creatinine 0.9, potassium 4.3, magnesium 1.7, alk phos 143. UA reporting rare bacteria trace of leukocytes , WBC of 1 ,negative for nitrates. Chest x-ray reporting similar to prior study, non acute. Nebulized breathing treatments, steroids, Lasix and she. 05/28/2019 Diuresing well on IV push Lasix with 24-hour I&O reflecting a negative fluid balance. Complains of constipation. Denies chest pain, palpitations or increasing shortness of breath. Afebrile. Objective - Vital Signs Vital signs: Vital Signs Temp 97.7 F 05/28/19 08:00 Pulse 60 05/28/19 09:06 Resp 19 05/28/19 08:00 BP 135/65 05/28/19 08:00 Pulse Ox 95 05/28/19 08:00 Intake & Output 05/27/19 05/28/19 05/28/19 18:59 06:59 18:59 Intake Total 720 120 240 Output Total 450 1800 Balance 270 -1680 240 Weight 83.1 kg Intake: Oral 720 120 240 Output: Urine 450 1800 Other: Voiding Method Toilet Toilet # Voids 1 1 - Exam VITAL SIGNS: As above GENERAL: Sitting up in recliner, no acute distress HEENT: Conjunctivae normal. eyes normal. Oral mucosa moist NECK: No JVD. No thyroid enlargement. No LNs CARDIOVASCULAR: S1, S2 regular.. No murmur RESPIRATION: Breath sounds centrally clear with bilateral bases diminished. ABDOMEN: Soft, nontender . No guarding. no masses palpable. Bowel sounds heard. LEGS: No edema PSYCHIATRY: Alert and oriented X3, mood and affect normal. NERVOUS SYSTEM: Cranial N 2-12 grossly normal. Moves all 4 limbs. Diffuse weakness No focal deficits. Strength and sensation grossly intact. Skin: no rash Lymphatic system. No LN neck axilla. - Labs CBC & Chem 7: 05/28/19 05:34 05/28/19 05:34 Labs: Abnormal Lab Results - Last 24 Hours (Table) 05/27/19 05/27/19 05/27/19 Range/Units 11:42 16:53 20:03 Lymphocytes # (1.0-4.8) k/uL Sodium (137-145) mmol/L Chloride (98-107) mmol/L BUN (7-17) mg/dL Glucose (74-99) mg/dL POC Glucose (mg/dL) 118 H 120 H 158 H (75-99) mg/dL 05/28/19 05/28/19 05/28/19 Range/Units 05:34 05:34 06:05 Lymphocytes # 0.3 L (1.0-4.8) k/uL Sodium 132 L (137-145) mmol/L Chloride 95 L (98-107) mmol/L BUN 34 H (7-17) mg/dL Glucose 146 H (74-99) mg/dL POC Glucose (mg/dL) 138 H (75-99) mg/dL Assessment and Plan Assessment: Acute hypoxic respiratory failure secondary to acute COPD exacerbation, acute CHF Acute on chronic CHF, diastolic dysfunction, EF 50-55% Chronic persistent atrial fibrillation on Xarelto Severely dilated LA Moderate mitral regurgitation Gastroesophageal reflux disease History of GI bleed Hypertension hyperlipidemia restless leg syndrome Anxiety Former nicotine dependence Plan: Continue on current medication regime ,monitoring and symptomatic treatment. Maintain nebulized bronchodilators, steroids, diuretics. Colace, Senokot added to med regime for complaints of constipation. Discharge planning in progress pending cardiology clearance. The impression and plan of care has been dictated as directed. : I performed a history and examination of this patient, discussed the same with the dictator. I agree with the dictator's note ,documented as a scribe. Any additional findings or plans will be noted.
[2019-05-28 16:52] LABS: Glucose,Whole Blood 150 mg/dL (75-99)
--- NOTE | 2019-05-28 17:46 | P.PN ---
Subjective This is Maggie Larose PA-C dictating a progress note on this patient The patient was interviewed and examined by me as well as by Dr. Jefferson Case discussed with Dr. Jefferson and he agrees with the plan of care IMPRESSION / ASSESSMENT: Acute hypoxic respiratory failure secondary to acute COPD exacerbation Acute on chronic CHF exacerbation, secondary to diastolic dysfunction, most recent echo showing EF 50-55%, mild concentric hypertrophy Persistent atrial fibrillation, rate controlled, anticoagulation with Xarelto Hypertension Dyslipidemia PLAN: switch to PO lasix Continue lisinopril, spironolactone, Pravachol, Anticoagulation with eliquis From a cardiology perspective, she has improved and is stable for discharge HPI/interval history Patient is a 88-year-old female with a past medical history of chronic CHF, hypertension, dyslipidemia, chronic A. fib, and COPD presented with complaints of worsening dyspnea and cough. She was admitted for treatment of acute CHF exacerbation and COPD exacerbation. She has been diuresing on IV lasix. Patient seen and examined sitting in the chair. She states her breathing has improved. She still has a dry cough. Denies any chest pain. Has been able to get up and walk to the bathroom. EXAMINATION Patient is afebrile, pulse in the 60s, respirations 19, oxygen saturation 94% on room air, pressure 135/65 Patient seen and examined sitting in the chair, in no acute distress Bilateral breath sounds diminished with expiratory wheezing bilaterally Heart is irregular, no audible murmurs No elevated JVD No lower extremity edema REVIEW OF LABS, ECG WBC 7.2, hemoglobin 12.8, platelets 175, potassium 4.4, BUN 34, creatinine 0.91 Recent echo showing EF 50-55%, mild concentric LVH, moderate MR, echodensity attached to the LA side of the anterior mitral leaflet Objective - Vital Signs Vital signs: Vital Signs Temp 97.7 F 05/28/19 08:00 Pulse 64 05/28/19 12:53 Resp 19 05/28/19 12:00 BP 153/66 05/28/19 12:00 Pulse Ox 94 L 05/28/19 12:00 Intake & Output 05/27/19 05/28/19 05/28/19 18:59 06:59 18:59 Intake Total 720 120 240 Output Total 450 1800 900 Balance 270 -1680 -660 Weight 83.1 kg Intake: Oral 720 120 240 Output: Urine 450 1800 900 Other: Voiding Method Toilet Toilet # Voids 1 1 2 # Bowel Movements 0 - Labs CBC & Chem 7: 05/28/19 05:34 05/28/19 05:34 Labs: Abnormal Lab Results - Last 24 Hours (Table) 05/27/19 05/27/19 05/28/19 Range/Units 16:53 20:03 05:34 Lymphocytes # 0.3 L (1.0-4.8) k/uL Sodium (137-145) mmol/L Chloride (98-107) mmol/L BUN (7-17) mg/dL Glucose (74-99) mg/dL POC Glucose (mg/dL) 120 H 158 H (75-99) mg/dL 05/28/19 05/28/19 05/28/19 Range/Units 05:34 06:05 11:43 Lymphocytes # (1.0-4.8) k/uL Sodium 132 L (137-145) mmol/L Chloride 95 L (98-107) mmol/L BUN 34 H (7-17) mg/dL Glucose 146 H (74-99) mg/dL POC Glucose (mg/dL) 138 H 117 H (75-99) mg/dL
[2019-05-28] MEDS: PRAVASTATIN SODIUM 40 MG TAB PO SCH (20:12)
[2019-05-28] MEDS: LISINOPRIL 10 MG TAB PO SCH (20:12)
[2019-05-28] MEDS: RIVAROXABAN 15 MG TAB PO SCH (20:12)
[2019-05-28] MEDS: LATANOPROST 0.005% OPHTH DROPS 2.5 ML BTL LEFT EYE SCH (20:14)
[2019-05-28 20:51] LABS: Glucose,Whole Blood 186 mg/dL (75-99)
[2019-05-29] MEDS: guaiFENesin SYRUP 100MG/5ML 200 MG/10 ML CUP PO PRN (01:29)
[2019-05-29 06:18] LABS: Basophils % (A) 0 %; Eosinophils % (A) 0 %; HCT 39.3 % (34.0-46.0); HGB 13.3 gm/dL (11.4-16.0); Lymphocytes # (A) 0.6 k/uL (1.0-4.8); Lymphocytes % (A) 7 %; MCH 29.9 pg (25.0-35.0); MCHC 33.8 g/dL (31.0-37.0); MCV 88.4 fL (80.0-100.0); Mean Platelet Volume 8.1; Monocytes # (A) 0.7 k/uL (0-1.0); Monocytes % (A) 9 %; Neutrophils # (A) 6.6 k/uL (1.3-7.7); Neutrophils % (A) 81 %; Platelet Count 204 k/uL (150-450); RBC 4.45 m/uL (3.80-5.40); WBC 8.1 k/uL (3.8-10.6)
[2019-05-29 06:30] LABS: Calcium 8.8 mg/dL (8.4-10.2); Potassium 4.6 mmol/L (3.5-5.1)
[2019-05-29 06:38] LABS: Glucose,Whole Blood 105 mg/dL (75-99)
[2019-05-29] MEDS: INSULIN ASPART (NovoLOG) 100 UNIT/ML VIAL SQ SCH (06:42)
[2019-05-29 06:43] VITALS: RESP 18
[2019-05-29] MEDS: LEVOTHYROXINE 25 MCG TAB PO SCH (06:52)
[2019-05-29] MEDS: SENNOSIDES-DOCUSATE SODIUM 1 EACH TAB PO SCH (08:05)
[2019-05-29] MEDS: CYANOCOBALAMIN 500 MCG TAB PO SCH (08:05)
[2019-05-29] MEDS: SPIRONOLACTONE 25 MG TAB PO SCH (08:05)
[2019-05-29] MEDS: DONEPEZIL 10 MG TAB PO SCH (08:05)
[2019-05-29] MEDS: DOCUSATE 100 MG CAP PO SCH (08:05)
[2019-05-29] MEDS: BUDESONIDE 1 MG/2 ML NEBU INHALATION SCH (08:06)
[2019-05-29] MEDS: FORMOTEROL FUMARATE 20 MCG/2 ML NEBU INHALATION SCH (08:06)
[2019-05-29] MEDS: IPRATROPIUM-ALBUTEROL 3 ML NEB INHALATION SCH (08:06)
[2019-05-29 08:15] VITALS: BP 132/63; TEMP 96.9
[2019-05-29 08:32] VITALS: PULSE 60
[2019-05-29] MEDS ORDERED: FUROSEMIDE 40 MG TAB PO SCH (09:00)
[2019-05-29] MEDS ORDERED: predniSONE 20 MG TAB PO SCH (09:00)
--- NOTE | 2019-05-29 09:37 | P.DS ---
Providers Date of admission: 05/24/19 17:34 Expected date of discharge: 05/29/19 Attending physician: Saurabh Ma Consults: 05/25/19 08:22 Consult Physician Routine Consulting Provider: Serenity Montenegro Consult Reason/Comments: COPD/CHF Do you want consulting provider notified?: Yes 05/25/19 15:04 Consult Physician Routine Consulting Provider: Al Ramirez Consult Reason/Comments: CHF Do you want consulting provider notified?: Yes Primary care physician: Saurabh Ma Hospital Course: Final Diagnoses: Acute hypoxic respiratory failure secondary to acute COPD exacerbation, acute CHF Acute on chronic CHF, diastolic dysfunction, EF 50-55% Chronic persistent atrial fibrillation on Xarelto Severely dilated LA Moderate mitral regurgitation Gastroesophageal reflux disease History of GI bleed Hypertension hyperlipidemia restless leg syndrome Anxiety Former nicotine dependence Hospital course:88-year-old female with history of atrial fibrillation, CHF, COPD, gastroesophageal reflux disease, GI bleed, former nicotine dependence and multiple other medical issues presented to the ER with complaints of worsening shortness of breath over the last couple of days accompanied by nonproductive cough, peripheral edema ,no chills, no diaphoresis, febrile. Initially evaluated at outside clinic and referred to the ER for further evaluation. Upon arrival patient using accessory muscles, tachypneic, with O2 sat of 90% on room air. EKG report atrial fibrillation with PVCs, nonspecific ST and T waves, troponin 0.014, BNP 3600. Denies any chest pain, palpitations. Labs essentially unremarkable. Afebrile, normal WBC, INR 1.2 BUN 18 creatinine 0.9, potassium 4.3, magnesium 1.7, alk phos 143. UA reporting rare bacteria trace of leukocytes , WBC of 1 ,negative for nitrates. Chest x-ray reporting similar to prior study, non acute. Nebulized breathing treatments, steroids, Lasix and she. 05/28/2019 Diuresing well on IV push Lasix with 24-hour I&O reflecting a ne gative fluid balance. Complains of constipation. Denies chest pain, palpitations or increasing shortness of breath. Afebrile. Converted to oral Lasix. Significant clinical improvement. Cleared for discharge by both pulmonary and cardiology. Patient is being discharged home in a stable condition with guarded prognosis. - Exam GENERAL: Alert and oriented 3, no acute distress CARDIOVASCULAR: S1, S2 regular.. No murmur RESPIRATION: Breath sounds centrally clear with bilateral bases diminished. ABDOMEN: Soft, nontender . No guarding. no masses palpable. Positive Bowel sounds. NERVOUS SYSTEM: No focal deficits. The impression and plan of care has been dictated as directed. : I performed a history and examination of this patient, discussed the same with the dictator. I agree with the dictator's note ,documented as a scribe. Any additional findings or plans will be noted. Patient Condition at Discharge: Stable Plan - Discharge Summary Discharge Rx Participant: No New Discharge Prescriptions: New Furosemide [Lasix] 40 mg PO DAILY #30 tab Sennosides-Docusate Sodium [Senokot-S] 2 each PO BID #60 tab predniSONE 10 mg PO DIRECTED #30 tab guaiFENesin SYRUP 100MG/5ML [Robitussin] 200 mg PO Q6H PRN cup PRN Reason: Cough Continue LORazepam [Ativan] 0.5 mg PO HS PRN PRN Reason: Anxiety rOPINIRole HCL [Requip] 1 mg PO HS Rivaroxaban [Xarelto] 15 mg PO HS Pravastatin Sodium [Pravachol] 40 mg PO HS Omeprazole [PriLOSEC] 20 mg PO AC-BRKFST Tiotropium 18 Mcg/Puff [Spiriva] 2 cap INHALATION RT-DAILY Latanoprost Ophth [Xalatan 0.005%] 1 drops LEFT EYE HS Lisinopril [Zestril] 10 mg PO HS Spironolactone [Aldactone] 25 mg PO DAILY Levothyroxine Sodium [Synthroid] 25 mcg PO DAILY Donepezil HCl [Aricept] 10 mg PO DAILY Cyanocobalamin (Vitamin B-12) [Vitamin B-12] 1,000 mcg PO DAILY Vit C/E/Zn/Coppr/Lutein/Zeaxan [Preservision Areds 2 Softgel] 1 cap PO DAILY Discontinued Furosemide [Lasix] 20 mg PO DAILY Discharge Medication List LORazepam [Ativan] 0.5 mg PO HS PRN 12/08/14 [History] Omeprazole [PriLOSEC] 20 mg PO AC-BRKFST 12/08/14 [History] Pravastatin Sodium [Pravachol] 40 mg PO HS 12/08/14 [History] Rivaroxaban [Xarelto] 15 mg PO HS 12/08/14 [History] Tiotropium 18 Mcg/Puff [Spiriva] 2 cap INHALATION RT-DAILY 12/08/14 [History] rOPINIRole HCL [Requip] 1 mg PO HS 12/08/14 [History] Cyanocobalamin (Vitamin B-12) [Vitamin B-12] 1,000 mcg PO DAILY 01/17/19 [History] Donepezil HCl [Aricept] 10 mg PO DAILY 01/17/19 [History] Latanoprost Ophth [Xalatan 0.005%] 1 drops LEFT EYE HS 01/17/19 [History] Levothyroxine Sodium [Synthroid] 25 mcg PO DAILY 01/17/19 [History] Lisinopril [Zestril] 10 mg PO HS 01/17/19 [History] Spironolactone [Aldactone] 25 mg PO DAILY 01/17/19 [History] Vit C/E/Zn/Coppr/Lutein/Zeaxan [Preservision Areds 2 Softgel] 1 cap PO DAILY 01/17/19 [History] Furosemide [Lasix] 40 mg PO DAILY #30 tab 05/29/19 [Rx] Sennosides-Docusate Sodium [Senokot-S] 2 each PO BID #60 tab 05/29/19 [Rx] guaiFENesin SYRUP 100MG/5ML [Robitussin] 200 mg PO Q6H PRN cup 05/29/19 [Rx] predniSONE 10 mg PO DIRECTED #30 tab 05/29/19 [Rx] Follow up Appointment(s)/Referral(s): Fred Gonzalez MD [STAFF PHYSICIAN] - 2 Weeks (Office will call with appointment. ) Saurabh Ma DO [Primary Care Provider] - 3 Days Serenity Montenegro MD [STAFF PHYSICIAN] - 2 Weeks Ambulatory/Diagnostic Orders: Complete Blood Count w/diff [LAB.AMB] Time Frame: 3 Days, Location: None Selected Activity/Diet/Wound Care/Special Instructions: Home Care - [facility] - [phone] CHF 1. Weigh yourself every morning after you urinate. If you gain 2-3 pounds overnight or 5 pounds in one week, call your primary physician for guidance on your medications. Keep a log of your weights. 2. Avoid salt, or foods with hidden salt. Extra salt makes your heart work harder and traps the fluid in your body for longer. 3. Take all of your medications as directed, especially your water pills. NEVER skip a dose. 4. Elevate your legs when you are not up moving around to help with circulation and prevent swelling. 5. Call your physician if you notice any extra swelling in your legs, ankles, feet or abdomen, if you have a new dry cough, if your shortness of breath worsens with activity or at rest, or if you feel more fatigued.
--- NOTE | 2019-05-29 17:01 | P.PN ---
Subjective This is Maggie Larose PA-C dictating a progress note on this patient The patient was interviewed and examined by me as well as by Dr. Jefferson Case discussed with Dr. Jefferson and he agrees with the plan of care IMPRESSION / ASSESSMENT: Acute hypoxic respiratory failure secondary to acute COPD exacerbation Acute on chronic CHF exacerbation, secondary to diastolic dysfunction, most recent echo showing EF 50-55%, mild concentric hypertrophy Persistent atrial fibrillation, rate controlled, anticoagulation with Xarelto Hypertension, blood pressure stable Dyslipidemia PLAN: Continue lisinopril, spironolactone, Lasix, Pravachol, Anticoagulation with eliquis From a cardiology perspective, she has improved and is stable for discharge with outpatient follow-up with her primary manager activities HPI/interval history Patient is a 88-year-old female with a past medical history of chronic CHF, hypertension, dyslipidemia, chronic A. fib, and COPD presented with complaints of worsening dyspnea and cough. She was admitted for treatment of acute CHF exacerbation and COPD exacerbation. Yesterday we switched her to oral Lasix.. Patient seen and examined sitting in the chair. States her breathing has improved and she is ready to go home. EXAMINATION Patient is afebrile, pulse in the 60s, respirations 18, blood pressure 132/63, oxygen saturation 97% Patient seen and examined sitting in the chair, in no acute distress Bilateral breath sounds diminished with expiratory wheezing and rhonchi bilaterally Heart is irregular, no audible murmurs No elevated JVD No lower extremity edema REVIEW OF LABS, ECG WBC 8.1, hemoglobin 13.3, platelets 204, potassium 4.6, BUN 36, creatinine 0.93 Recent echo showing EF 50-55%, mild concentric LVH, moderate MR, echodensity attached to the LA side of the anterior mitral leaflet Objective - Vital Signs Vital signs: Vital Signs Temp 96.9 F L 05/29/19 08:09 Pulse 60 05/29/19 08:32 Resp 18 05/29/19 08:09 BP 132/63 05/29/19 08:09 Pulse Ox 97 05/29/19 08:09 Intake & Output 05/28/19 05/29/19 05/29/19 18:59 06:59 18:59 Intake Total 480 240 Output Total 900 1000 Balance -420 -1000 240 Weight 82.3 kg Intake: Oral 480 240 Output: Urine 900 1000 Other: Voiding Method Toilet # Voids 1 3 1 # Bowel Movements 0 0 - Labs CBC & Chem 7: 05/29/19 05:35 05/29/19 05:35 Labs: Abnormal Lab Results - Last 24 Hours (Table) 05/28/19 05/29/19 05/29/19 Range/Units 20:48 05:35 05:35 Lymphocytes # 0.6 L (1.0-4.8) k/uL Sodium 132 L (137-145) mmol/L Chloride 95 L (98-107) mmol/L Carbon Dioxide 32 H (22-30) mmol/L BUN 36 H (7-17) mg/dL POC Glucose (mg/dL) 186 H (75-99) mg/dL 05/29/19 Range/Units 06:35 Lymphocytes # (1.0-4.8) k/uL Sodium (137-145) mmol/L Chloride (98-107) mmol/L Carbon Dioxide (22-30) mmol/L BUN (7-17) mg/dL POC Glucose (mg/dL) 105 H (75-99) mg/dL
== END 2019-05-29 12:16 | disposition home health service (06) | DRG 291 ==
LOC: EC 15:29 → 3SCARD 17:34
PROVIDERS: ADMIT Family Medicine; ATTEND Family Medicine
DX: I13.0 Hypertensive heart and chronic kidney disease with heart failure and stage 1 through stage 4 chronic kidney disease, or unspecified chronic kidney disease (principal); I50.33 Acute on chronic diastolic (congestive) heart failure; J96.01 Acute respiratory failure with hypoxia; J44.1 Chronic obstructive pulmonary disease with (acute) exacerbation; I48.19 Other persistent atrial fibrillation; I27.20 Pulmonary hypertension, unspecified; K21.9 Gastro-esophageal reflux disease without esophagitis; F41.9 Anxiety disorder, unspecified; E78.5 Hyperlipidemia, unspecified; G25.81 Restless legs syndrome; M19.90 Unspecified osteoarthritis, unspecified site; I08.1 Rheumatic disorders of both mitral and tricuspid valves; K59.00 Constipation, unspecified; R73.9 Hyperglycemia, unspecified; N18.9 Chronic kidney disease, unspecified; F03.90 Unspecified dementia, unspecified severity, without behavioral disturbance, psychotic disturbance, mood disturbance, and anxiety; Z71.3 Dietary counseling and surveillance; Z79.01 Long term (current) use of anticoagulants; Z79.890 Hormone replacement therapy; Z79.899 Other long term (current) drug therapy; Z87.19 Personal history of other diseases of the digestive system; Z90.49 Acquired absence of other specified parts of digestive tract; Z90.710 Acquired absence of both cervix and uterus; Z87.891 Personal history of nicotine dependence; Z96.653 Presence of artificial knee joint, bilateral; Z98.42 Cataract extraction status, left eye; Z98.41 Cataract extraction status, right eye; Z98.890 Other specified postprocedural states; Z88.0 Allergy status to penicillin; Z88.2 Allergy status to sulfonamides; Z82.49 Family history of ischemic heart disease and other diseases of the circulatory system; Z80.49 Family history of malignant neoplasm of other genital organs
CPT/HCPCS: 36415; 71046; 80048; 80053; 81001; 83735; 83880; 84484; 85025; 85610; 85730; 87502; 93005; 93306; 94640; 94760; 96374; 96375; 99285

== ENCOUNTER 2019-10-22 23:19 | Emergency (ER) | payer MEDICARE ==
[2019-10-22 23:26] VITALS: TEMP 98.4
[2019-10-23] MEDS ORDERED: HYDROcodone/APAP 5-325MG 1 EACH TAB PO STA (00:07)
--- NOTE | 2019-10-23 00:40 | XR ---
EXAMINATION TYPE: XR wrist complete LT DATE OF EXAM: 10/23/2019 COMPARISON: NONE HISTORY: Fall. Pain. TECHNIQUE: 4 views FINDINGS: There is impacted transverse fracture distal radial metaphysis. There is mild anterior angu lation at the fracture site. 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 Distal ulna is intact. I see no carpal bone fracture. IMPRESSION: Acute impacted fracture distal radius with mild anterior angulation and minimal posterior displacement of the distal fragment.
--- NOTE | 2019-10-23 00:58 | ED ---
Fall HPI - General Chief Complaint: Fall Stated Complaint: fall Time Seen by Provider: 10/22/19 23:29 Source: patient, EMS, RN notes reviewed, old records reviewed Mode of arrival: EMS Limitations: no limitations - History of Present Illness Initial Comments: This is an 88-year-old female DF status post mechanical fall. He says left wrist pain. No other injuries no loss of consciousness did not his head not on blood thinners. Patient states she has severe pain in her left forearm area but no other significant complaints. 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 Fall Witnessed: yes, by family Place Fall Occurred: home Loss of Consciousness: none Prolonged Down Time?: no Symptoms Prior to Fall: none Location - Extremities: Left: Forearm Severity: severe Severity scale (1-10): 7 Quality: sharp, crushing Context: tripped/slipped Associated Symptoms: denies - Related Data Home Medications Medication Instructions Recorded Confirmed LORazepam [Ativan] 0.5 mg PO HS PRN 12/08/14 05/24/19 Omeprazole [PriLOSEC] 20 mg PO AC-BRKFST 12/08/14 05/24/19 Pravastatin Sodium [Pravachol] 40 mg PO HS 12/08/14 05/24/19 Rivaroxaban [Xarelto] 15 mg PO HS 12/08/14 05/24/19 Tiotropium 18 Mcg/Puff [Spiriva] 2 cap INHALATION RT-DAILY 12/08/14 05/24/19 rOPINIRole HCL [Requip] 1 mg PO HS 12/08/14 05/24/19 Cyanocobalamin (Vitamin B-12) 1,000 mcg PO DAILY 01/17/19 05/24/19 [Vitamin B-12] Donepezil HCl [Aricept] 10 mg PO DAILY 01/17/19 05/24/19 Latanoprost Ophth [Xalatan 0.005%] 1 drops LEFT EYE HS 01/17/19 05/24/19 Levothyroxine Sodium [Synthroid] 25 mcg PO DAILY 01/17/19 05/24/19 Lisinopril [Zestril] 10 mg PO HS 01/17/19 05/24/19 Spironolactone [Aldactone] 25 mg PO DAILY 01/17/19 05/24/19 Vit C/E/Zn/Coppr/Lutein/Zeaxan 1 cap PO DAILY 01/17/19 05/24/19 [Preservision Areds 2 Softgel] Previous Rx's Medication Instructions Recorded Furosemide [Lasix] 40 mg PO DAILY #30 tab 05/29/19 Sennosides-Docusate Sodium 2 each PO BID #60 tab 05/29/19 [Senokot-S] guaiFENesin SYRUP 100MG/5ML 200 mg PO Q6H PRN cup 05/29/19 [Robitussin] predniSONE 10 mg PO DIRECTED #30 tab 05/29/19 Allergies Allergy/AdvReac Type Severity Reaction Status Date / Time Penicillins Allergy Rash/Hives Verified 10/22/19 23:26 sulfamethoxazole Allergy Rash/Hives Verified 10/22/19 23:26 [From Bactrim] trimethoprim [From Bactrim] Allergy Rash/Hives Verified 10/22/19 23:26 Review of Systems ROS Statement: Those systems with pertinent positive or pertinent negative responses have been documented in the HPI. ROS Other: All systems not noted in ROS Statement are negative. Past Medical History Past Medical History: Atrial Fibrillation, Heart Failure, COPD, GERD/Reflux, GI Bleed, Hyperlipidemia, Hypertension Additional Past Medical History / Comment(s): restless leg syndrome History of Any Multi-Drug Resistant Organisms: None Reported Past Surgical History: Appendectomy, Cholecystectomy, Hysterectomy, Joint Replacement, Orthopedic Surgery Additional Past Surgical History / Comment(s): cataracts removed, bilateral knees Past Anesthesia/Blood Transfusion Reactions: No Reported Reaction Past Psychological History: Anxiety Smoking Status: Former smoker Past Alcohol Use History: None Reported Past Drug Use History: None Reported - Past Family History Father Family Medical History: Coronary Artery Disease (CAD) Additional Family Medical History / Comment(s): rhemuatic fever, at 59 of "bad heart" Mother Family Medical History: Cancer Additional Family Medical History / Comment(s): uterus General Exam - General Exam Comments Initial Comments: Left forearm swelling and tenderness, both radial and ulnar pulses normal no neurological deficits Limitations: no limitations General appearance: alert, in no apparent distress Head exam: Present: atraumatic, normocephalic, normal inspection Eye exam: Present: normal appearance, PERRL, EOMI. Absent: scleral icterus, conjunctival injection, periorbital swelling ENT exam: Present: normal exam, mucous membranes moist Neck exam: Present: normal inspection. Absent: tenderness, meningismus, lymphadenopathy Respiratory exam: Present: normal lung sounds bilaterally. Absent: respiratory distress, wheezes, rales, rhonchi, stridor Cardiovascular Exam: Present: regular rate, normal rhythm, normal heart sounds. Absent: systolic murmur, diastolic murmur, rubs, gallop, clicks GI/Abdominal exam: Present: soft, normal bowel sounds. Absent: distended, tenderness, guarding, rebound, rigid Extremities exam: Present: normal inspection, full ROM, normal capillary refill. Absent: tenderness, pedal edema, joint swelling, calf tenderness Back exam: Present: normal inspection Neurological exam: Present: alert, oriented X3, CN II-XII intact Psychiatric exam: Present: normal affect, normal mood Skin exam: Present: warm, dry, intact, normal color. Absent: rash Course Vital Signs 10/22/19 23:20 Temperature 98.4 F Pulse Rate 51 L Respiratory 18 Rate Blood Pressure 166/71 O2 Sat by Pulse 97 Oximetry - Reevaluation(s) Reevaluation #1: 10/23/19 00:57 Medical records reviewed Reevaluation #2: 10/23/19 00:57 Pain is controlled Medical Decision Making - Medical Decision Making 38 female DF for evaluation. Patient presents today for evaluation regards to left upper Shorty pain patient has isolated radial fracture that is comminuted and impacted patient placed in splint he'll be discharged to follow-up with orthopedics - Radiology Data Radiology results: report reviewed (X-ray left wrist show positive fracture), image reviewed Disposition Clinical Impression: Fall, Left wrist fracture Narrative: Distal Left Radius Fracture, Comminuted Disposition: HOME SELF-CARE Condition: Good Instructions (If sedation given, give patient instructions): Fall Prevention for Older Adults (ED), Wrist Fracture in Adults (ED) Is patient prescribed a controlled substance at d/c from ED?: No Referrals: Saurabh Ma DO [Primary Care Provider] - 1-2 days
--- NOTE | 2019-10-23 01:02 | ED ---
Medical Decision Making - Medical Decision Making This is addendum documenting splint placement Disposition Clinical Impression: Fall, Left wrist fracture Disposition: HOME SELF-CARE Condition: Good Instructions (If sedation given, give patient instructions): Wrist Fracture in Adults (ED), Fall Prevention for Older Adults (ED) Is patient prescribed a controlled substance at d/c from ED?: No Referrals: Saurabh Ma DO [Primary Care Provider] - 1-2 days Procedures - Orthopedic Splinting/Casting Injury #1 Side: left Upper Extremity Injury Location: wrist Upper Extremity Immobilizer: ulnar gutter, wrist splint
[2019-10-23] MEDS ORDERED: Acetaminophen-Codeine 300-30mg TAB PO STA (01:12)
[2019-10-23] MEDS ORDERED: ACET/COD 300 MG/30 MG STARTER PACK 6 TAB BTL PO STA (01:12)
[2019-10-23] MEDS ORDERED: MORPHINE SULFATE 4 MG/ML SYRINGE IM STA (01:12)
[2019-10-23 01:31] VITALS: BP 145/80; PULSE 76; RESP 16
== END 2019-10-23 01:33 | disposition home or self-care (01) ==
LOC: EC 23:19
DX: S52.592A Other fractures of lower end of left radius, initial encounter for closed fracture (principal); I50.9 Heart failure, unspecified; I12.9 Hypertensive chronic kidney disease with stage 1 through stage 4 chronic kidney disease, or unspecified chronic kidney disease; J44.9 Chronic obstructive pulmonary disease, unspecified; K21.9 Gastro-esophageal reflux disease without esophagitis; E78.5 Hyperlipidemia, unspecified; F41.9 Anxiety disorder, unspecified; Z88.0 Allergy status to penicillin; Z88.2 Allergy status to sulfonamides; Z79.01 Long term (current) use of anticoagulants; Z79.899 Other long term (current) drug therapy; Z87.891 Personal history of nicotine dependence; Z98.42 Cataract extraction status, left eye; Z98.41 Cataract extraction status, right eye; Z96.653 Presence of artificial knee joint, bilateral; W08.XXXA Fall from other furniture, initial encounter; Y93.01 Activity, walking, marching and hiking; Y92.009 Unspecified place in unspecified non-institutional (private) residence as the place of occurrence of the external cause
CPT/HCPCS: 73110; 99284; 96372; 29125; J2270

== ENCOUNTER 2020-08-27 02:53 | Inpatient (IN) | payer MEDICARE ==
--- NOTE | 2020-08-27 03:20 | ED ---
SOB HPI - General Chief Complaint: Upper Respiratory Infection Stated Complaint: Shortness of Breath Time Seen by Provider: 08/27/20 03:02 Source: patient Mode of arrival: ambulatory Limitations: no limitations - History of Present Illness Initial Comments: This patient is an 89-year-old woman who presents with complaint that she is feeling short of breath. She states that seem to come on yesterday in the late afternoon. She states that she was just sitting and reading at the time she noticed it. She states that tonight she was having a hard time sleeping with her then therefore they called the ambulance. The patient denies chest pain, diaphoresis, nausea or vomiting. She has noticed some palpitations that of been going on for weeks. She did see a manager of human resources and mention this and she states that he ordered something for her to wear but it has not arrived yet. She has not noted any change in urination or bowel movements. No dark tarry or bloody stools. She has not had any leg pain or swelling. MD Complaint: shortness of breath Onset/Timin -: hour(s) Severity scale (1-10): 0 Consistency: constant Improves With: nothing Worsens With: nothing Associated Symptoms: palpitations Treatments Prior to Arrival: oxygen - Related Data Home Oxygen Therapy: No Home Medications Medication Instructions Recorded Confirmed LORazepam [Ativan] 0.5 mg PO HS PRN 12/08/14 05/24/19 Omeprazole [PriLOSEC] 20 mg PO AC-BRKFST 12/08/14 05/24/19 Pravastatin Sodium [Pravachol] 40 mg PO HS 12/08/14 05/24/19 Rivaroxaban [Xarelto] 15 mg PO HS 12/08/14 05/24/19 Tiotropium 18 Mcg/Puff [Spiriva] 2 cap INHALATION RT-DAILY 12/08/14 05/24/19 rOPINIRole HCL [Requip] 1 mg PO HS 12/08/14 05/24/19 Cyanocobalamin (Vitamin B-12) 1,000 mcg PO DAILY 01/17/19 05/24/19 [Vitamin B-12] Donepezil HCl [Aricept] 10 mg PO DAILY 01/17/19 05/24/19 Latanoprost Ophth [Xalatan 0.005%] 1 drops LEFT EYE HS 01/17/19 05/24/19 Levothyroxine Sodium [Synthroid] 25 mcg PO DAILY 01/17/19 05/24/19 Spironolactone [Aldactone] 25 mg PO DAILY 01/17/19 05/24/19 Vit C/E/Zn/Coppr/Lutein/Zeaxan 1 cap PO DAILY 01/17/19 05/24/19 [Preservision Areds 2 Softgel] lisinopriL [Zestril] 10 mg PO HS 01/17/19 05/24/19 Previous Rx's Medication Instructions Recorded Furosemide [Lasix] 40 mg PO DAILY #30 tab 05/29/19 Sennosides-Docusate Sodium 2 each PO BID #60 tab 05/29/19 [Senokot-S] guaiFENesin SYRUP 100MG/5ML 200 mg PO Q6H PRN cup 05/29/19 [Robitussin] predniSONE 10 mg PO DIRECTED #30 tab 05/29/19 Allergies Allergy/AdvReac Type Severity Reaction Status Date / Time Penicillins Allergy Rash/Hives Verified 08/27/20 03:06 sulfamethoxazole Allergy Rash/Hives Verified 08/27/20 03:06 [From Bactrim] trimethoprim [From Bactrim] Allergy Rash/Hives Verified 08/27/20 03:06 Review of Systems ROS Statement: Those systems with pertinent positive or pertinent negative responses have been documented in the HPI. ROS Other: All systems not noted in ROS Statement are negative. Constitutional: Denies: fever, chills Respiratory: Reports: dyspnea. Denies: cough, hemoptysis Cardiovascular: Denies: chest pain, palpitations, orthopnea, edema, syncope Gastrointestinal: Denies: abdominal pain, nausea, vomiting, diarrhea, melena, hematochezia Genitourinary: Denies: dysuria, hematuria Musculoskeletal: Denies: back pain Skin: Denies: rash Neurological: Denies: headache, weakness Past Medical History Past Medical History: Atrial Fibrillation, Heart Failure, COPD, GERD/Reflux, GI Bleed, Hyperlipidemia, Hypertension Additional Past Medical History / Comment(s): restless leg syndrome History of Any Multi-Drug Resistant Organisms: None Reported Past Surgical History: Appendectomy, Cholecystectomy, Hysterectomy, Joint Replacement, Orthopedic Surgery Additional Past Surgical History / Comment(s): cataracts removed, bilateral knees Past Anesthesia/Blood Transfusion Reactions: No Reported Reaction Past Psychological History: Anxiety Smoking Status: Former smoker Past Alcohol Use History: None Reported Past Drug Use History: None Reported - Past Family History Father Family Medical History: Coronary Artery Disease (CAD) Additional Family Medical History / Comment(s): rhemuatic fever, at 59 of "bad heart" Mother Family Medical History: Cancer Additional Family Medical History / Comment(s): uterus General Exam Limitations: no limitations General appearance: alert, in no apparent distress Head exam: Present: atraumatic, normocephalic Eye exam: Present: normal appearance. Absent: scleral icterus, conjunctival injection ENT exam: Present: normal oropharynx Neck exam: Present: normal inspection Respiratory exam: Present: normal lung sounds bilaterally. Absent: respiratory distress, wheezes, rales, rhonchi, stridor, accessory muscle use, decreased breath sounds, prolonged expiratory Cardiovascular Exam: Present: bradycardia, irregular rhythm, normal heart sounds. Absent: systolic murmur, diastolic murmur, rubs, gallop GI/Abdominal exam: Present: soft. Absent: distended, tenderness, guarding, rebound, rigid, mass Extremities exam: Present: normal inspection, normal capillary refill. Absent: pedal edema, calf tenderness Back exam: Present: normal inspection Neurological exam: Present: alert Skin exam: Present: warm, dry, intact, normal color. Absent: rash Course Vital Signs 08/27/20 08/27/20 03:03 05:26 Temperature 98.6 F Pulse Rate 47 L 37 L Respiratory 20 18 Rate Blood Pressure 171/69 158/97 O2 Sat by Pulse 96 94 L Oximetry Medical Decision Making - Lab Data Result diagrams: 08/27/20 03:48 08/27/20 03:48 Lab Results 08/27/20 08/27/20 08/27/20 Range/Units 03:48 03:48 03:48 WBC 5.4 (3.8-10.6) k/uL RBC 3.93 (3.80-5.40) m/uL Hgb 12.2 (11.4-16.0) gm/dL Hct 35.4 (34.0-46.0) % MCV 90.0 (80.0-100.0) fL MCH 31.1 (25.0-35.0) pg MCHC 34.5 (31.0-37.0) g/dL RDW 12.5 (11.5-15.5) % Plt Count 191 (150-450) k/uL MPV 7.3 Neutrophils % 73 % Lymphocytes % 15 % Monocytes % 7 % Eosinophils % 2 % Basophils % 0 % Neutrophils # 4.0 (1.3-7.7) k/uL Lymphocytes # 0.8 L (1.0-4.8) k/uL Monocytes # 0.4 (0-1.0) k/uL Eosinophils # 0.1 (0-0.7) k/uL Basophils # 0.0 (0-0.2) k/uL PT 13.3 H (9.0-12.0) sec INR 1.3 H (<1.2) APTT 28.5 (22.0-30.0) sec Sodium 136 L (137-145) mmol/L Potassium 4.8 (3.5-5.1) mmol/L Chloride 103 (98-107) mmol/L Carbon Dioxide 26 (22-30) mmol/L Anion Gap 7 mmol/L BUN 22 H (7-17) mg/dL Creatinine 1.09 H (0.52-1.04) mg/dL Est GFR (CKD-EPI)AfAm 53 (>60 ml/min/1.73 sqM) Est GFR (CKD-EPI)NonAf 46 (>60 ml/min/1.73 sqM) Glucose 108 H (74-99) mg/dL Calcium 9.4 (8.4-10.2) mg/dL Magnesium 2.0 (1.6-2.3) mg/dL Total Bilirubin 0.6 (0.2-1.3) mg/dL AST 18 (14-36) U/L ALT 8 (4-34) U/L Alkaline Phosphatase 84 (38-126) U/L Troponin I (0.000-0.034) ng/mL Total Protein 6.2 L (6.3-8.2) g/dL Albumin 3.6 (3.5-5.0) g/dL TSH 3.570 (0.465-4.680) mIU/L Coronavirus (PCR) (Not Detectd) 08/27/20 08/27/20 Range/Units 03:48 03:48 WBC (3.8-10.6) k/uL RBC (3.80-5.40) m/uL Hgb (11.4-16.0) gm/dL Hct (34.0-46.0) % MCV (80.0-100.0) fL MCH (25.0-35.0) pg MCHC (31.0-37.0) g/dL RDW (11.5-15.5) % Plt Count (150-450) k/uL MPV Neutrophils % % Lymphocytes % % Monocytes % % Eosinophils % % Basophils % % Neutrophils # (1.3-7.7) k/uL Lymphocytes # (1.0-4.8) k/uL Monocytes # (0-1.0) k/uL Eosinophils # (0-0.7) k/uL Basophils # (0-0.2) k/uL PT (9.0-12.0) sec INR (<1.2) APTT (22.0-30.0) sec Sodium (137-145) mmol/L Potassium (3.5-5.1) mmol/L Chloride (98-107) mmol/L Carbon Dioxide (22-30) mmol/L Anion Gap mmol/L BUN (7-17) mg/dL Creatinine (0.52-1.04) mg/dL Est GFR (CKD-EPI)AfAm (>60 ml/min/1.73 sqM) Est GFR (CKD-EPI)NonAf (>60 ml/min/1.73 sqM) Glucose (74-99) mg/dL Calcium (8.4-10.2) mg/dL Magnesium (1.6-2.3) mg/dL Total Bilirubin (0.2-1.3) mg/dL AST (14-36) U/L ALT (4-34) U/L Alkaline Phosphatase (38-126) U/L Troponin I <0.012 (0.000-0.034) ng/mL Total Protein (6.3-8.2) g/dL Albumin (3.5-5.0) g/dL TSH (0.465-4.680) mIU/L Coronavirus (PCR) Not Detected (Not Detectd) - EKG Data -: EKG Interpreted by Me EKG shows normal: axis (Normal), intervals (Normal), QRS complexes (Normal) Rate: bradycardia (Rate approximately 39 bpm) Interpretation: other (The underlying rhythm appears to be atrial fibrillation with a slow ventricular response.) Disposition Clinical Impression: Atrial fibrillation with slow ventricular response, Symptomatic bradycardia Disposition: ADMITTED IP TO THIS HOSP Condition: Fair Is patient prescribed a controlled substance at d/c from ED?: No Referrals: Saurabh Ma DO [Primary Care Provider] - 1-2 days
[2020-08-27 04:00] LABS: Basophils % (A) 0 %; Eosinophils # (A) 0.1 k/uL (0-0.7); Eosinophils % (A) 2 %; HCT 35.4 % (34.0-46.0); HGB 12.2 gm/dL (11.4-16.0); Lymphocytes # (A) 0.8 k/uL (1.0-4.8); Lymphocytes % (A) 15 %; MCH 31.1 pg (25.0-35.0); MCHC 34.5 g/dL (31.0-37.0); Mean Platelet Volume 7.3; Monocytes # (A) 0.4 k/uL (0-1.0); Monocytes % (A) 7 %; Neutrophils % (A) 73 %; Platelet Count 191 k/uL (150-450); RBC 3.93 m/uL (3.80-5.40); RDW 12.5 % (11.5-15.5); WBC 5.4 k/uL (3.8-10.6)
--- NOTE | 2020-08-27 04:13 | XR ---
EXAM: XR Chest, 2 Views CLINICAL HISTORY: ITS.REASON XR Reason: dysrhythmia TECHNIQUE: Frontal and lateral views of the chest. COMPARISON: 05/24/2019 IMPRESSION: Cardiomegaly. Mild vascular congestion. Possible trace left pleural effusion.
[2020-08-27 04:19] LABS: INR 1.3 (<1.2); Partial Thromboplastin Time 28.5 sec (22.0-30.0); Prothrombin Time 13.3 sec (9.0-12.0)
[2020-08-27 04:23] LABS: Albumin 3.6 g/dL (3.5-5.0); Calcium 9.4 mg/dL (8.4-10.2); Potassium 4.8 mmol/L (3.5-5.1); Total Bilirubin 0.6 mg/dL (0.2-1.3); Total Protein 6.2 g/dL (6.3-8.2)
[2020-08-27] MEDS ORDERED: NALOXONE 0.4 MG/ML 1 ML VIAL IV PRN (05:31)
[2020-08-27] MEDS ORDERED: SODIUM CHLORIDE 0.9% 1,000 ML IV SCH (05:45)
[2020-08-27 07:12] LABS: Appearance,Urine Cloudy (Clear); Bacteria,Urine Rare /hpf; Bilirubin,Urine Negative (Negative); Blood,Urine Negative (Negative); Color,Urine Light Yellow; Glucose,Urine (UA) Negative (Negative); Ketones,Urine Negative (Negative); Leukocyte Esterase,Urine Large (Negative); Nitrite,Urine Negative (Negative); Protein,Urine Negative (Negative); RBC,Urine 2 /hpf (0-5); Specific Gravity,Urine 1.006 (1.001-1.035); Squamous Epithelial Cell,Urine 8 /hpf (0-4); Urobilinogen,Urine <2.0 mg/dL (<2.0); WBC,Urine 17 /hpf (0-5)
[2020-08-27] MEDS: PANTOPRAZOLE 40 MG TABLET PO SCH (07:59)
[2020-08-27] MEDS: SENNOSIDES-DOCUSATE SODIUM 1 EACH TAB PO SCH ×2 (08:00→22:03)
[2020-08-27] MEDS: CYANOCOBALAMIN 500 MCG TAB PO SCH (08:00)
[2020-08-27] MEDS: SPIRONOLACTONE 25 MG TAB PO SCH (08:00)
[2020-08-27] MEDS: DONEPEZIL 10 MG TAB PO SCH (08:00)
[2020-08-27] MEDS: LEVOTHYROXINE 25 MCG TAB PO SCH (08:00)
[2020-08-27] MEDS: FUROSEMIDE 40 MG TAB PO SCH (08:00)
[2020-08-27] MEDS ORDERED: FUROSEMIDE 10 MG/ML 4 ML VIAL IV STA (11:39)
--- NOTE | 2020-08-27 11:43 | P.HPIM ---
History of Present Illness This is a pleasant 89 years old female with past medical history of atrial fibrillation, GI bleed, heart failure, COPD, GERD, hyperlipidemia, hypertension, restless leg syndrome. She is a patient of Dr. Ma. Presents because of dyspnea with exertion for 3-4 days with some coughing but no chest pain or abdominal pain or something sitting on her chest. She denies fever. She has some dizziness but she denies headache or weakness or numbness. She is bradycardic with heart rate 34-50. Risks of vitals are stable and patient is afebrile. Labs show an unremarkable CBC, INR, BMP and liver enzymes. Creatinine is 1.0 which is baseline Troponin is negative 3 with less than 0.012. TSH is normal 3.5. Urinalysis is suspicious for infection with cloudy appearance, large leukocyte esterase and WBCs 17 I. Coronavirus not detected EKG showing atrial fibrillation with slow ventricular response at 39 Chest x-ray:mild vascular congestion possible trace left pleural effusion Echocardiogram last year 05/2019: Ejection fraction 50-55% with mild concentric left ventricular hypertrophy. Moderate mitral regurgitation Emergency room patient was started on normal saline at 75 mL/h, she continued on xarelto Review of Systems CONSTITUTIONAL: No fever, no malaise, no fatigue. HEENT: No recent visual problems or hearing problems. Denied any sore throat. CARDIOVASCULAR: No orthopnea, PND, no palpitations, no syncope. PULMONARY: No chest wall tenderness, no hemoptysis. GASTROINTESTINAL: No diarrhea, no nausea, no vomiting, no abdominal pain. Normoactive bowel sounds. NEUROLOGICAL: No headaches, no weakness, no numbness. HEMATOLOGICAL: Denies any bleeding or petechiae. GENITOURINARY: Denies any burning micturition, frequency, or urgency. MUSCULOSKELETAL/RHEUMATOLOGICAL: Denies any joint pain, swelling, or any muscle pain. ENDOCRINE: Denies any polyuria or polydipsia. Past Medical History Past Medical History: Atrial Fibrillation, Heart Failure, COPD, GERD/Reflux, GI Bleed, Hyperlipidemia, Hypertension Additional Past Medical History / Comment(s): restless leg syndrome History of Any Multi-Drug Resistant Organisms: None Reported Past Surgical History: Appendectomy, Cholecystectomy, Hysterectomy, Joint Replacement, Orthopedic Surgery Additional Past Surgical History / Comment(s): cataracts removed, bilateral knees Past Anesthesia/Blood Transfusion Reactions: No Reported Reaction Past Psychological History: Anxiety Smoking Status: Former smoker Past Alcohol Use History: None Reported Past Drug Use History: None Reported - Past Family History Father Family Medical History: Coronary Artery Disease (CAD) Additional Family Medical History / Comment(s): rhemuatic fever, at 59 of "bad heart" Mother Family Medical History: Cancer Additional Family Medical History / Comment(s): uterus Medications and Allergies Home Medications Medication Instructions Recorded Confirmed Type LORazepam [Ativan] 0.5 mg PO HS PRN 12/08/14 08/27/20 History Omeprazole [PriLOSEC] 20 mg PO AC-BRKFST 12/08/14 08/27/20 History Pravastatin Sodium [Pravachol] 40 mg PO HS 12/08/14 08/27/20 History Rivaroxaban [Xarelto] 15 mg PO HS 12/08/14 08/27/20 History Tiotropium 18 Mcg/Puff [Spiriva] 2 puff INHALATION RT-DAILY 12/08/14 08/27/20 History rOPINIRole HCL [Requip] 1 mg PO HS 12/08/14 08/27/20 History Cyanocobalamin (Vitamin B-12) 1,000 mcg PO DAILY 01/17/19 08/27/20 History [Vitamin B-12] Donepezil HCl [Aricept] 10 mg PO DAILY 01/17/19 08/27/20 History Latanoprost Ophth [Xalatan 0.005%] 1 drops BOTH EYES HS 01/17/19 08/27/20 History Levothyroxine Sodium [Synthroid] 25 mcg PO DAILY 01/17/19 08/27/20 History Spironolactone [Aldactone] 25 mg PO DAILY 01/17/19 08/27/20 History Vit C/E/Zn/Coppr/Lutein/Zeaxan 2 cap PO DAILY 01/17/19 08/27/20 History [Preservision Areds 2 Softgel] lisinopriL [Zestril] 10 mg PO HS 01/17/19 08/27/20 History Furosemide [Lasix] 20 mg PO DAILY 08/27/20 08/27/20 History Allergies Allergy/AdvReac Type Severity Reaction Status Date / Time Penicillins Allergy Rash/Hives Verified 08/27/20 07:27 sulfamethoxazole Allergy Rash/Hives Verified 08/27/20 07:27 [From Bactrim] trimethoprim [From Bactrim] Allergy Rash/Hives Verified 08/27/20 07:27 Physical Exam Vitals: Vital Signs Temp Pulse Resp BP Pulse Ox 08/27/20 08:45 50 L 18 135/90 100 08/27/20 07:56 97.8 F 34 L 18 140/88 100 08/27/20 05:26 37 L 18 158/97 94 L 08/27/20 03:03 98.6 F 47 L 20 171/69 96 Intake and Output 08/26/20 08/27/20 08/27/20 22:59 06:59 14:59 Other: Weight 80.739 kg GENERAL: The patient is alert and oriented x3, not in any acute distress. Well developed, well nourished. HEENT: Pupils are round and equally reacting to light. EOMI. No scleral icterus. No conjunctival pallor. Normocephalic, atraumatic. No pharyngeal erythema. No thyromegaly. CARDIOVASCULAR: S1 and S2 present. No murmurs, rubs, or gallops. -PULMONARY: Chest is clear to auscultation, no wheezing . Bilateral basal crepitation ABDOMEN: Soft, nontender, nondistended, normoactive bowel sounds. No palpable organomegaly. MUSCULOSKELETAL: No joint swelling or deformity. EXTREMITIES: No cyanosis, clubbing, or pedal edema. NEUROLOGICAL: Gross neurological examination did not reveal any focal deficits. SKIN: No rashes. No petechiae Results CBC & Chem 7: 08/27/20 03:48 08/27/20 03:48 Labs: Abnormal Lab Results - Last 24 Hours (Table) 08/27/20 08/27/20 08/27/20 Range/Units 03:48 03:48 03:48 Lymphocytes # 0.8 L (1.0-4.8) k/uL PT 13.3 H (9.0-12.0) sec INR 1.3 H (<1.2) Sodium 136 L (137-145) mmol/L BUN 22 H (7-17) mg/dL Creatinine 1.09 H (0.52-1.04) mg/dL Glucose 108 H (74-99) mg/dL Total Protein 6.2 L (6.3-8.2) g/dL Urine Appearance (Clear) Ur Leukocyte Esterase (Negative) Urine WBC (0-5) /hpf Ur Squamous Epith Cells (0-4) /hpf Urine Bacteria (None) /hpf 08/27/20 Range/Units 06:45 Lymphocytes # (1.0-4.8) k/uL PT (9.0-12.0) sec INR (<1.2) Sodium (137-145) mmol/L BUN (7-17) mg/dL Creatinine (0.52-1.04) mg/dL Glucose (74-99) mg/dL Total Protein (6.3-8.2) g/dL Urine Appearance Cloudy H (Clear) Ur Leukocyte Esterase Large H (Negative) Urine WBC 17 H (0-5) /hpf Ur Squamous Epith Cells 8 H (0-4) /hpf Urine Bacteria Rare H (None) /hpf Assessment and Plan Assessment: Symptomatic bradycardia Chronic A. fib currently with bradycardia mild acute on chronic diastolic CHF with ejection fraction 50-55% Acute urinary tract infection Moderate mitral regurgitation Hypertension Hyperlipidemia Chronic kidney disease, stage III History of GI bleed History of GERD Restless leg syndrome Plan: This is a pleasant 83 years old female who presents with A. fib with bradycardia. Continue with telemetry monitoring. Cardiology consult. Discontinue IV fluids. Give Lasix 20 mg IV 1. Start ceftriaxone follow-up ur ine culture Labs and medication were reviewed.. Continue same treatment. Continue with symptomatic treatment. Resume home medication. Monitor lytes and vitals. DVT and GI prophylaxis. Further recommendations depends on the clinical course of the patient DVT prophylaxis: xarelto GI Prophylaxis: Ppi PT/OT: Pending Prognosis is guarded
--- NOTE | 2020-08-27 17:31 | P.CRDCN ---
History of Present Illness History of present illness: HISTORY OF PRESENTING ILLNESS Patient is a pleasant 89 yo female with history of mild dementia, chronic Afib, HLD, HTN, diastolic heart failure, pulmonary hypertension, tricuspid regurgitati on. I had recently seen patient in the office 08/22 where she had been complaining of increasing episodes of lightheadedness which can occur mainly with walking. She has always been somewhat unsteady on her feet walking with a walker however now has noted feeling more lightheaded. We therefore were making arrangements for 1 week monitor as this was happening on a daily basis. She also had a recent echo in the office 07/29/2020 which showed EF 55% grade 3 diastolic dysfunction, PFO, moderate to severe MR, moderate TR, RVSP 63. She has been doing well on her anticoagulation with Xarelto. She has not been on any rate contolling medications and only Aricept that may cause mild bradycardia. She has been having persistent lightheadedness and therefore came to ER where initial EKG showed Afib with HR in the 30's at 39. She denies any syncope. She does have some chronic SEGAL. She initially was given some IVF then given Lasix 20mg IV. DIAGNOSTICS Troponin normal x 3, Cr 1.09, BUN 22, TSH 3.5 REVIEW OF SYSTEMS At the time of my exam: CONSTITUTIONAL: +weakness. Denies fever or chills. CARDIOVASCULAR: Denies chest pain, +mild shortness of breath, no orthopnea, PND or palpitations. RESPIRATORY: Denies cough. GASTROINTESTINAL: Denies abdominal pain, diarrhea, constipation, nausea or vomiting. MUSCULOSKELETAL: Denies myalgias. NEUROLOGIC: Denies numbness, tingling, headacbe or weakness. ENDOCRINE: Denies fatigue, weight change, polydipsia or polyurina. GENITOURINARY: Denies burning, hematuria or urgency with micturation. HEMATOLOGIC: Denies history of anemia or bleeding. PHYSICAL EXAMINATION Vitals reviewed CONSTITUTIONAL: No apparent distress. HEENT: Head is normocephalic. Pupils are equal, round. Mucous membranes of the mouth are dry. No JVD. No carotid bruit. CHEST EXAMINATION: Lungs are clear to auscultation. No chest wall tenderness is noted on palpation or with deep breathing. HEART EXAMINATION: Irregular rate and rhythm. S1, S2 heard. +2/6 systolic murmur , no gallops or rub. ABDOMEN: Soft, Positive bowel sounds. EXTREMITIES: 2+ peripheral pulses, no LE edema NEUROLOGIC EXAMINATION: No focal deficits noted ASSESSMENT 1. Chronic Afib 2. Bradycardia with HR's in the 30's on presentation 3. Lightheadedness, likely from bradycardia 4. Acute on chronic diastolic heart failure, appears euvolemic s/p Lasix 5. Moderate to severe mitral regurgitation 6. Pyuria, questionable UTI vs colonization 7. Essential hypertension 8. Mild dementia PLAN Hold aricept for completeness as this can cause bradycardia. Lightheadedness likely mainly related to bradycardia. Monitor on telemetry. We will discuss with EP and patient regarding possible PPM. Check orthostatics. Past Medical History Past Medical History: Atrial Fibrillation, Heart Failure, COPD, GERD/Reflux, GI Bleed, Hyperlipidemia, Hypertension Additional Past Medical History / Comment(s): restless leg syndrome History of Any Multi-Drug Resistant Organisms: None Reported Past Surgical History: Appendectomy, Cholecystectomy, Hysterectomy, Joint Replacement, Orthopedic Surgery Additional Past Surgical History / Comment(s): cataracts removed, bilateral knees Past Anesthesia/Blood Transfusion Reactions: No Reported Reaction Past Psychological History: Anxiety Smoking Status: Former smoker Past Alcohol Use History: None Reported Past Drug Use History: None Reported - Past Family History Father Family Medical History: Coronary Artery Disease (CAD) Additional Family Medical History / Comment(s): rhemuatic fever, at 59 of "bad heart" Mother Family Medical History: Cancer Additional Family Medical History / Comment(s): uterus Medications and Allergies Home Medications Medication Instructions Recorded Confirmed Type LORazepam [Ativan] 0.5 mg PO HS PRN 12/08/14 08/27/20 History Omeprazole [PriLOSEC] 20 mg PO AC-BRKFST 12/08/14 08/27/20 History Pravastatin Sodium [Pravachol] 40 mg PO HS 12/08/14 08/27/20 History Rivaroxaban [Xarelto] 15 mg PO HS 12/08/14 08/27/20 History Tiotropium 18 Mcg/Puff [Spiriva] 2 puff INHALATION RT-DAILY 12/08/14 08/27/20 History rOPINIRole HCL [Requip] 1 mg PO HS 12/08/14 08/27/20 History Cyanocobalamin (Vitamin B-12) 1,000 mcg PO DAILY 01/17/19 08/27/20 History [Vitamin B-12] Donepezil HCl [Aricept] 10 mg PO DAILY 01/17/19 08/27/20 History Latanoprost Ophth [Xalatan 0.005%] 1 drops BOTH EYES HS 01/17/19 08/27/20 History Levothyroxine Sodium [Synthroid] 25 mcg PO DAILY 01/17/19 08/27/20 History Spironolactone [Aldactone] 25 mg PO DAILY 01/17/19 08/27/20 History Vit C/E/Zn/Coppr/Lutein/Zeaxan 2 cap PO DAILY 01/17/19 08/27/20 History [Preservision Areds 2 Softgel] lisinopriL [Zestril] 10 mg PO HS 01/17/19 08/27/20 History Furosemide [Lasix] 20 mg PO DAILY 08/27/20 08/27/20 History Allergies Allergy/AdvReac Type Severity Reaction Status Date / Time Penicillins Allergy Rash/Hives Verified 08/27/20 07:27 sulfamethoxazole Allergy Rash/Hives Verified 08/27/20 07:27 [From Bactrim] trimethoprim [From Bactrim] Allergy Rash/Hives Verified 08/27/20 07:27 Physical Exam Vitals: Vital Signs Temp Pulse Pulse Resp BP BP Pulse Ox 08/27/20 16:00 43 L 18 123/64 100 08/27/20 12:00 42 L 18 148/65 100 08/27/20 08:45 50 L 18 135/90 100 08/27/20 07:56 97.8 F 34 L 18 140/88 100 08/27/20 05:26 37 L 18 158/97 94 L 08/27/20 03:03 98.6 F 47 L 20 171/69 96 Intake and Output 08/27/20 08/27/20 08/27/20 06:59 14:59 22:59 Other: Weight 80.739 kg 80.739 kg Results 08/27/20 03:48 08/27/20 03:48 Cardiac Enzymes 08/27/20 08/27/20 08/27/20 Range/Units 03:48 03:48 07:30 AST 18 (14-36) U/L Troponin I <0.012 <0.012 (0.000-0.034) ng/mL 08/27/20 Range/Units 09:45 AST (14-36) U/L Troponin I <0.012 (0.000-0.034) ng/mL Coagulation 08/27/20 Range/Units 03:48 PT 13.3 H (9.0-12.0) sec APTT 28.5 (22.0-30.0) sec CBC 08/27/20 Range/Units 03:48 WBC 5.4 (3.8-10.6) k/uL RBC 3.93 (3.80-5.40) m/uL Hgb 12.2 (11.4-16.0) gm/dL Hct 35.4 (34.0-46.0) % Plt Count 191 (150-450) k/uL Comprehensive Metabolic Panel 08/27/20 Range/Units 03:48 Sodium 136 L (137-145) mmol/L Potassium 4.8 (3.5-5.1) mmol/L Chloride 103 (98-107) mmol/L Carbon Dioxide 26 (22-30) mmol/L BUN 22 H (7-17) mg/dL Creatinine 1.09 H (0.52-1.04) mg/dL Glucose 108 H (74-99) mg/dL Calcium 9.4 (8.4-10.2) mg/dL AST 18 (14-36) U/L ALT 8 (4-34) U/L Alkaline Phosphatase 84 (38-126) U/L Total Protein 6.2 L (6.3-8.2) g/dL Albumin 3.6 (3.5-5.0) g/dL Current Medications Generic Name Dose Route Start Last Admin Trade Name Freq PRN Reason Stop Dose Admin Cyanocobalamin 1,000 mcg 08/27/20 09:00 08/27/20 08:00 Cyanocobalamin 500 Mcg Tab PO 1,000 mcg DAILY DALILA Administration Donepezil HCl 10 mg 08/27/20 09:00 08/27/20 08:00 Donepezil 10 Mg Tab PO 10 mg DAILY DALILA Administration Furosemide 40 mg 08/27/20 09:00 08/27/20 08:00 Furosemide 40 Mg Tab PO 40 mg DAILY DALILA Administration Ceftriaxone Sodium 1 gm/ 50 mls @ 100 mls/hr 08/27/20 12:00 08/27/20 14:36 Sodium Chloride IVPB 100 mls/hr Q24HR DALILA Administration Latanoprost 1 drops 08/27/20 21:00 Latanoprost 0.005% Ophth Drops 2.5 Ml Btl LEFT EYE HS DALILA Levothyroxine Sodium 25 mcg 08/27/20 06:30 08/27/20 08:00 Levothyroxine 25 Mcg Tab PO 25 mcg DAILY@0630 DALILA Administration Lisinopril 10 mg 08/27/20 21:00 Lisinopril 10 Mg Tab PO HS DALILA Lorazepam 0.5 mg 08/27/20 05:33 Lorazepam 0.5 Mg Tab PO HS PRN Anxiety Naloxone HCl 0.2 mg 08/27/20 05:31 Naloxone 0.4 Mg/Ml 1 Ml Vial IV Q2M PRN Opioid Reversal Pantoprazole Sodium 40 mg 08/27/20 07:30 08/27/20 07:59 Pantoprazole 40 Mg Tablet PO 40 mg AC-BRKFST DALILA Administration Pravastatin Sodium 40 mg 08/27/20 21:00 Pravastatin Sodium 40 Mg Tab PO HS DALILA Rivaroxaban 15 mg 08/27/20 21:00 Rivaroxaban 15 Mg Tab PO HS DALILA Senna/Docusate Sodium 2 each 08/27/20 09:00 08/27/20 08:00 Sennosides-Docusate Sodium 1 Each Tab PO 2 each BID DALILA Administration Spironolactone 25 mg 08/27/20 09:00 08/27/20 08:00 Spironolactone 25 Mg Tab PO 25 mg DAILY DALILA Administration Tiotropium [place] 2 puff 08/27/20 08:00 Tiotropium 2.5 Mcg Inhaler INHALATION RT-DAILY DALILA Intake and Output 08/27/20 08/27/20 08/27/20 06:59 14:59 22:59 Other: Weight 80.739 kg 80.739 kg Patient Weight 08/28/20 06:59 Weight 80.739 kg 08/27/20 03:48 08/27/20 03:48
[2020-08-27] MEDS ORDERED: RIVAROXABAN 15 MG TAB PO SCH (21:00)
[2020-08-27] MEDS: PRAVASTATIN SODIUM 40 MG TAB PO SCH (22:02)
[2020-08-27] MEDS: lisinopriL 10 MG TAB PO SCH (22:03)
[2020-08-27] MEDS: LATANOPROST 0.005% OPHTH DROPS 2.5 ML BTL LEFT EYE SCH (22:03)
[2020-08-27] MEDS: LORazepam 0.5 MG TAB PO PRN (22:03)
[2020-08-27 23:56] LABS: Appearance,Urine Clear (Clear); Bilirubin,Urine Negative (Negative); Blood,Urine Negative (Negative); Color,Urine Light Yellow; Glucose,Urine (UA) Negative (Negative); Ketones,Urine Negative (Negative); Leukocyte Esterase,Urine Negative (Negative); Nitrite,Urine Negative (Negative); PH, Urine 6.5 (5.0-8.0); Protein,Urine Negative (Negative); Specific Gravity,Urine 1.007 (1.001-1.035); Urobilinogen,Urine <2.0 mg/dL (<2.0)
[2020-08-28] MEDS: LEVOTHYROXINE 25 MCG TAB PO SCH (07:01)
[2020-08-28] MEDS: DONEPEZIL 10 MG TAB PO SCH (10:26)
[2020-08-28] MEDS: CYANOCOBALAMIN 500 MCG TAB PO SCH (10:26)
[2020-08-28] MEDS: PANTOPRAZOLE 40 MG TABLET PO SCH (10:26)
[2020-08-28] MEDS: FUROSEMIDE 40 MG TAB PO SCH (10:26)
[2020-08-28] MEDS: SPIRONOLACTONE 25 MG TAB PO SCH (10:26)
[2020-08-28] MEDS: SENNOSIDES-DOCUSATE SODIUM 1 EACH TAB PO SCH ×2 (10:26→20:41)
--- NOTE | 2020-08-28 11:37 | P.PN ---
Subjective HISTORY OF PRESENTING ILLNESS Patient is a pleasant 89 yo female with history of mild dementia, chronic Afib, HLD, HTN, diastolic heart failure, pulmonary hypertension, tricuspid regurgitation. I had recently seen patient in the office 08/22 where she had been complaining of increasing episodes of lightheadedness which can occur mainly with walking. She has always been somewhat unsteady on her feet walking with a walker however now has noted feeling more lightheaded. We therefore were making arrangements for 1 week monitor as this was happening on a daily basis. She also had a recent echo in the office 07/29/2020 which showed EF 55% grade 3 diastolic dysfunction, PFO, moderate to severe MR, moderate TR, RVSP 63. She has been doing well on her anticoagulation with Xarelto. She has not been on any rate contolling medications and only Aricept that may cause mild bradycardia. She has been having persistent lightheadedness and therefore came to ER where initial EKG showed Afib with HR in the 30's at 39. She denies any syncope. She does have some chronic SEGAL. She initially was given some IVF then given Lasix 20mg IV. DIAGNOSTICS Troponin normal x 3, Cr 1.09, BUN 22, TSH 3.5 08/28 Patient seen and examined. Orthostatic vitals not performed. Telemetry reviewed with occasional heart rates in the high 30s and mainly in the 40s. She denies any chest pain or pressure. She still does get lightheaded standing up walking to the bathroom. No syncopal episodes. Aricept has been held. REVIEW OF SYSTEMS At the time of my exam: CONSTITUTIONAL: +weakness. Denies fever or chills. CARDIOVASCULAR: Denies chest pain, +mild chronic shortness of breath, no orthopnea, PND or palpitations. RESPIRATORY: Denies cough. GASTROINTESTINAL: Denies abdominal pain, diarrhea, constipation, nausea or vomiting. MUSCULOSKELETAL: Denies myalgias. NEUROLOGIC: Denies numbness, tingling, headacbe or weakness. ENDOCRINE: Denies fatigue, weight change, polydipsia or polyurina. GENITOURINARY: Denies burning, hematuria or urgency with micturation. HEMATOLOGIC: Denies history of anemia or bleeding. PHYSICAL EXAMINATION Vitals reviewed CONSTITUTIONAL: No apparent distress. HEENT: Head is normocephalic. Pupils are equal, round. Mucous membranes of the mouth are dry. No JVD. No carotid bruit. CHEST EXAMINATION: Lungs are clear to auscultation. No chest wall tenderness is noted on palpation or with deep breathing. HEART EXAMINATION: Irregular rate and rhythm. S1, S2 heard. +2/6 systolic murmur, no gallops or rub. ABDOMEN: Soft, Positive bowel sounds. EXTREMITIES: 2+ peripheral pulses, no LE edema NEUROLOGIC EXAMINATION: No focal deficits noted ASSESSMENT 1. Chronic Afib 2. Symptomatic bradycardia 3. Lightheadedness 4. Acute on chronic diastolic heart failure, appears euvolemic s/p Lasix 5. Moderate to severe mitral regurgitation 6. Pyuria, questionable UTI vs more likely colonization 7. Essential hypertension 8. Mild dementia PLAN Patient appears to be symptomatic from her bradycardia with continued heart rates in the 30s to 40s. She still is lightheaded and discussed risks and benefits of permanent pacemaker. Discussed with electrophysiology and we will make arrangements for permanent pacemaker placement, likely will need his bundle pacing. Objective - Vital Signs Vital signs: Vital Signs Temp 97.7 F 08/28/20 08:02 Pulse 48 L 08/28/20 09:04 Resp 14 08/28/20 09:04 BP 152/59 08/28/20 08:02 Pulse Ox 94 L 08/28/20 08:02 Intake & Output 08/27/20 08/28/20 08/28/20 18:59 06:59 18:59 Intake Total 365 125 240 Balance 365 125 240 Weight 80.739 kg 77 kg Intake: Oral 365 125 240 Other: Voiding Method Toilet Toilet Toilet # Voids 2 1 - Labs CBC & Chem 7: 08/27/20 03:48 08/27/20 03:48 Labs: Microbiology - Last 24 Hours (Table) 08/27/20 23:45 Urine Culture - Preliminary Urine,Voided
--- NOTE | 2020-08-28 13:01 | P.PN ---
Subjective This is a pleasant 89 years old female with past medical history of atrial fibrillation, GI bleed, heart failure, COPD, GERD, hyperlipidemia, hypertension, restless leg syndrome. She is a patient of Dr. Ma. Presents because of dyspnea with exertion for 3-4 days with some coughing but no chest pain or abdominal pain or something sitting on her chest. She denies fever. She has some dizziness but she denies headache or weakness or numbness. She is bradycardic with heart rate 34-50. Risks of vitals are stable and patient is afebrile. Labs show an unremarkable CBC, INR, BMP and liver enzymes. Creatinine is 1.0 which is baseline Troponin is negative 3 with less than 0.012. TSH is normal 3.5. Urinalysis is suspicious for infection with cloudy appearance, large leukocyte esterase and WBCs 17 I. Coronavirus not detected EKG showing atrial fibrillation with slow ventricular response at 39 Chest x-ray:mild vascular congestion possible trace left pleural effusion Echocardiogram last year 05/2019: Ejection fraction 50-55% with mild concentric left ventricular hypertrophy. Moderate mitral regurgitation Emergency room patient was started on normal saline at 75 mL/h, she continued on xarelto 08/28/2020 Patient states that she's been complaining of from lightheadedness most of the day. She reports increased frequency of urination but this been chronic for the last 6 months. No dysuria or urgency. UTI was diagnosed upon admission however repeat urine analysis looks clean, ceftriaxone stopped. Discussed the case with cardiology team and plan for possible pacemaker placement given her symptomatic bradycardia. Heart rate is in the 40s. Patient is already on home dose of Xarelto and Lasix Objective - Vital Signs Vital signs: Vital Signs Temp 97.7 F 08/28/20 08:02 Pulse 48 L 08/28/20 09:04 Resp 14 08/28/20 09:04 BP 152/59 08/28/20 08:02 Pulse Ox 94 L 08/28/20 08:02 Intake & Output 08/27/20 08/28/20 08/28/20 18:59 06:59 18:59 Intake Total 365 125 240 Balance 365 125 240 Weight 80.739 kg 77 kg Intake: Oral 365 125 240 Other: Voiding Method Toilet Toilet Toilet # Voids 2 1 - Exam GENERAL: The patient is alert and oriented x3, not in any acute distress. Well d eveloped, well nourished. HEENT: Pupils are round and equally reacting to light. EOMI. No scleral icterus. No conjunctival pallor. Normocephalic, atraumatic. No pharyngeal erythema. No thyromegaly. CARDIOVASCULAR: S1 and S2 present. No murmurs, rubs, or gallops. PULMONARY: Chest is clear to auscultation, no wheezing or crackles. ABDOMEN: Soft, nontender, nondistended, normoactive bowel sounds. No palpable organomegaly. MUSCULOSKELETAL: No joint swelling or deformity. EXTREMITIES: No cyanosis, clubbing, or pedal edema. NEUROLOGICAL: Gross neurological examination did not reveal any focal deficits. SKIN: No rashes. no petechiae. - Labs CBC & Chem 7: 08/27/20 03:48 08/27/20 03:48 Labs: Microbiology - Last 24 Hours (Table) 08/27/20 23:45 Urine Culture - Preliminary Urine,Voided Assessment and Plan Assessment: Symptomatic bradycardia Chronic A. fib currently with bradycardia mild acute on chronic diastolic CHF with ejection fraction 50-55% Acute urinary tract infection, resolved with treatment Moderate mitral regurgitation Hypertension Hyperlipidemia Chronic kidney disease, stage III History of GI bleed History of GERD Restless leg syndrome Plan: This is a pleasant 83 years old female who presents with A. fib with bradycar j luis. Continue with telemetry monitoring. Cardiology consult. Discontinue IV fluids. Give Lasix 20 mg IV 1. Discontinue ceftriaxone follow-up urine culture Labs and medication were reviewed.. Continue same treatment. Continue with symptomatic treatment. Resume home medication. Monitor lytes and vitals. DVT and GI prophylaxis. Further recommendations depends on the clinical course of the patient DVT prophylaxis: xarelto GI Prophylaxis: Ppi PT/OT: Pending Prognosis is guarded
[2020-08-28] MEDS: TIOTROPIUM 2.5 MCG INHALER INHALATION SCH (19:08)
[2020-08-28] MEDS: PRAVASTATIN SODIUM 40 MG TAB PO SCH (20:41)
[2020-08-28] MEDS: LATANOPROST 0.005% OPHTH DROPS 2.5 ML BTL LEFT EYE SCH (20:41)
[2020-08-28] MEDS: LORazepam 0.5 MG TAB PO PRN (20:41)
[2020-08-28] MEDS: lisinopriL 10 MG TAB PO SCH (20:41)
[2020-08-29 05:57] LABS: Glucose,Whole Blood 98 mg/dL (75-99)
[2020-08-29] MEDS ORDERED: CLINDAMYCIN 900 MG in DEXTROSE 5% IN WATER 50 ML IVPB PRN ×2 (06:00)
[2020-08-29] MEDS ORDERED: CLINDAMYCIN 600 MG in SODIUM CHLORIDE 0.9% 250 ML IRRIGATION PRN (06:00)
[2020-08-29] MEDS: PANTOPRAZOLE 40 MG TABLET PO SCH (06:11)
[2020-08-29] MEDS: LEVOTHYROXINE 25 MCG TAB PO SCH (06:11)
[2020-08-29] MEDS: SODIUM CHLORIDE 0.9% 1,000 ML IV SCH ×2 (06:11→07:43)
[2020-08-29] MEDS: CYANOCOBALAMIN 500 MCG TAB PO SCH (06:11)
[2020-08-29] MEDS ORDERED: fentaNYL (PF) 50 MCG/ML 2 ML AMP ONE (07:30)
[2020-08-29] MEDS ORDERED: PROPOFOL 10 MG/ML 20 ML VIAL IV ONE (07:30)
[2020-08-29] MEDS ORDERED: IV FLUID CONTINUATION 1,000 ML IV ONE (07:36)
[2020-08-29] MEDS ORDERED: SODIUM CHLORIDE 0.9% 500 ML 500 ML IV ONE (07:38)
[2020-08-29] MEDS: TIOTROPIUM 2.5 MCG INHALER INHALATION SCH ×2 (07:43→18:26)
[2020-08-29] MEDS ORDERED: IOPAMIDOL-370 50ML BTL INJ ONE (07:45)
[2020-08-29] MEDS ORDERED: LIDOCAINE 1% INJ 10MG/ML (20 ML MDV) ONE (07:53)
[2020-08-29] MEDS ORDERED: ACETAMINOPHEN IV (For NPO) 1,000 MG in EMPTY BAG 1 BAG IVPB ONE (07:54)
[2020-08-29] MEDS ORDERED: LIDOCAINE 1% INJ 10MG/ML (20 ML MDV) SQ ONE (08:07)
[2020-08-29] MEDS ORDERED: LIDOCAINE 1% INJ 10MG/ML (20 ML MDV) IV ONE (08:15)
--- NOTE | 2020-08-29 09:43 | P.PCN ---
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 Anticipated RV pacing is greater than 40, more like 100% She underwent implantation of an RV lead as well as a His bundle lead She has significant biatrial enlargement Right atrium and tricuspid valve significantly enlarged While we were able to mapped is and obtain a selective capture as well as nonselective capture several times, the lead was unstable and would dislodge The sheath would not reach the tricuspid valve completely on account of the size of the right atrium and the tricuspid valve It took multiple attempts to obtain a stable position for the history lead This was successfully accomplished and while the lead was within the sheath threshold was about 2.5 V for nonselective capture After the sheath was removed the threshold increased to 3.25 V RV thresholds were excellent Him extra long RV lead was ordered specifically for this patient to accommodate the size of the right atrium Thresholds were excellent A biventricular pacemaker was implanted with physiologic septal pacing The pacemaker has been programmed to VVIR 50 to 1:30 bpm His bundle pacing preferentially at 5 V at 1 ms Backup RV pacing 80 ms following His bundle pacing
--- NOTE | 2020-08-29 10:20 | CE ---
CARDIAC ELECTROPHYSIOLOGY REPORT This is an 89-year-old female who presented with symptomatic bradycardia. She has permanent atrial fibrillation, significant biatrial enlargement with restrictive physiology and diastolic heart failure. She was very short of breath when she arrived. She underwent a biventricular pacemaker implantation to avoid RV pacing. Since anticipated RV pacing percentage is close to 100%, with a single-chamber device. The patient is brought to the EP lab in a fasting state. Written informed consent was obtained prior to the procedure. The left shoulder area was prepped and draped as per protocol and 1% lidocaine was used for local anesthesia. A 4 cm incision was made parallel to the deltopectoral groove, about 1.5 cm medial to it. The incision was carried down to the level of the pectoralis muscle. A subfascial pocket was made. Hemostasis was assured. The left axillary vein was accessed at 2 separate points under fluoroscopy and via appropriately-sized introducer sheath first an RV lead was positioned. We specially ordered a longer RV lead of 65 cm length, model #5076 and serial number [id number], [employer]. This was screwed in the RV apex. R-waves 9.5 mV, pacing impedance 855 ohms, pacing threshold 0.3 V at 0.5 milliseconds. Ten volte test negative. The His bundle sheath was placed and it appeared to reach the tricuspid anulus. We were able to map the His bundle with 3830 lead and obtain both selective capture at times and other times nonselective capture. However, the lead was unstable and upon deploying the screw, it would dislodge. Multiple attempts were made and finally we were able to obtain a stable position with nonselective capture. The loss of nonselective capture initially was at 2.5 V at 1 millisecond but after removal of the sheath, it increased to 3.25 V at 1 millisecond, but it remained stable thereafter. Complete loss of capture occurred at 1 V at 1 millisecond for the His lead. The leads and the sheaths were removed. The leads were secured to the underlying pectoralis muscle using 2 nonabsorbable sutures. They were connected to the generator. The atrial port was planned. The device was then implanted and secured to the underlying pectoralis muscle. This was a [employer]Optifreeze, [employer] WORKER-P MRI model number #W1TR02, serial #[id number]. The leads and generator were then placed in subfascial pocket and the wound was closed in 3 layers and dressed per protocol. The device was programmed to DDDR 50-130 ppm with preferential His bundle pacing/physiologic septal pacing to avoid RV pacing. Backup RV pacing 80 milliseconds after the His bundle pacing. The patient tolerated the procedure well without any acute complications. MMMISTY / MARGARETTEN: [id number] /
--- NOTE | 2020-08-29 12:22 | XR ---
EXAMINATION TYPE: XR chest 1V portable DATE OF EXAM: 08/29/2020 Comparison: 08/27/2020 Clinical History: 89-year-old female postpacemaker Lead placement check Findings: Heart is enlarged. Left anterior chest wall pacemaker generator with right ventricular lead. A second lead may be located within a dilated right atrium and should be correlated clinically. Diffuse inter stitial prominence. Impression: 1. Left-sided 2-lead pacemaker generator. There is a right ventricular lead. The second lead may be l ocated within a dilated right atrium and needs to be correlated clinically. 2. Cardiomegaly and slightly increased diffuse interstitial changes, correlate for pulmonary vascular congestion.
[2020-08-29] MEDS ORDERED: RIVAROXABAN 15 MG TAB PO STA (12:23)
--- NOTE | 2020-08-29 12:43 | P.PN ---
Subjective This is a pleasant 89 years old female with past medical history of atrial fibrillation, GI bleed, heart failure, COPD, GERD, hyperlipidemia, hypertension, restless leg syndrome. She is a patient of Dr. Ma. Presents because of dyspnea with exertion for 3-4 days with some coughing but no chest pain or abdominal pain or something sitting on her chest. She denies fever. She has some dizziness but she denies headache or weakness or numbness. She is bradycardic with heart rate 34-50. Risks of vitals are stable and patient is afebrile. Labs show an unremarkable CBC, INR, BMP and liver enzymes. Creatinine is 1.0 which is baseline Troponin is negative 3 with less than 0.012. TSH is normal 3.5. Urinalysis is suspicious for infection with cloudy appearance, large leukocyte esterase and WBCs 17 I. Coronavirus not detected EKG showing atrial fibrillation with slow ventricular response at 39 Chest x-ray:mild vascular congestion possible trace left pleural effusion Echocardiogram last year 05/2019: Ejection fraction 50-55% with mild concentric left ventricular hypertrophy. Moderate mitral regurgitation Emergency room patient was started on normal saline at 75 mL/h, she continued on xarelto 08/28/2020 Patient states that she's been complaining of from lightheadedness most of the day. She reports increased frequency of urination but this been chronic for the last 6 months. No dysuria or urgency. UTI was diagnosed upon admission however repeat urine analysis looks clean, ceftriaxone stopped. Discussed the case with cardiology team and plan for possible pacemaker placement given her symptomatic bradycardia. Heart rate is in the 40s. Patient is already on home dose of Xarelto and Lasix 08/29/2020 Patient underwent pacemaker placement today. Patient tolerated the procedure well. Discussed the case with cardiology service, we can start Xarelto tonight and monitor hemoglobin and site of pacemaker tomorrow to make sure there is no bleeding complications. Patient is afebrile more than 48 hours, no leukocytosis. The probeconsult tone is normal at 0.09. Urine culture showed no growth. Because of this I don't think the patient has UTI and antibiotic ceftriaxone was stopped. She has chronic increased frequency of urination about 6 months, discussed with staff to check for bladder scan Objective - Vital Signs Vital signs: Vital Signs Temp 97.4 F L 08/29/20 11:05 Pulse 69 08/29/20 10:39 Resp 16 08/29/20 11:05 BP 155/87 08/29/20 11:05 Pulse Ox 97 08/29/20 11:05 Intake & Output 08/28/20 08/29/20 08/29/20 18:59 06:59 18:59 Intake Total 480 450 Output Total 300 Balance 180 450 Weight 77 kg Intake: IV 450 Oral 480 Output: Urine 300 Other: Voiding Method Toilet Toilet # Voids 1 - Exam GENERAL: The patient is alert and oriented x3, not in any acute distress. Well developed, well nourished. HEENT: Pupils are round and equally reacting to light. EOMI. No scleral icterus. No conjunctival pallor. Normocephalic, atraumatic. No pharyngeal erythema. No thyromegaly. CARDIOVASCULAR: S1 and S2 present. No murmurs, rubs, or gallops. PULMONARY: Chest is clear to auscultation, no wheezing or crackles. ABDOMEN: Soft, nontender, nondistended, normoactive bowel sounds. No palpable organomegaly. MUSCULOSKELETAL: No joint swelling or deformity. EXTREMITIES: No cyanosis, clubbing, or pedal edema. NEUROLOGICAL: Gross neurological examination did not reveal any focal deficits. SKIN: No rashes. no petechiae. - Labs CBC & Chem 7: 08/27/20 03:48 08/27/20 03:48 Labs: Microbiology - Last 24 Hours (Table) 08/27/20 23:45 Urine Culture - Final Urine,Voided Assessment and Plan Assessment: Symptomatic bradycardia , status post pacemaker placement on 08/29. Today postop day #0 Chronic A. fib currently with bradycardia mild acute on chronic diastolic CHF with ejection fraction 50-55% , resolved Acute urinary tract infection, resolved with treatment. No need for antibiotic. Chronic increased frequency of urination for 6-12 months. Check bladder scan Moderate mitral regurgitation Hypertension Hyperlipidemia Chronic kidney disease, stage III History of GI bleed History of GERD Restless leg syndrome Plan: This is a pleasant 83 years old female who presents with A. fib with bradycardia. She is status post pacemaker. Continue with telemetry monitoring. Cardiology consult. Discontinue ceftriaxone as patient has no UTI currently Resume Xarelto and monitor pacemaker site and hemoglobin tomorrow Discussed with bed side nurse to check bladder scan Labs and medication were reviewed.. Continue same treatment. Continue with symptomatic treatment. Resume home medication. Monitor lytes and vitals. DVT and GI prophylaxis. Further recommendations depends on the clinical course of the patient DVT prophylaxis: xarelto GI Prophylaxis: Ppi PT/OT: Pending Prognosis is guarded
[2020-08-29] MEDS: SPIRONOLACTONE 25 MG TAB PO SCH (13:03)
[2020-08-29] MEDS: DONEPEZIL 10 MG TAB PO SCH (13:03)
[2020-08-29] MEDS: FUROSEMIDE 40 MG TAB PO SCH (13:03)
[2020-08-29] MEDS: SENNOSIDES-DOCUSATE SODIUM 1 EACH TAB PO SCH ×2 (13:03→22:26)
[2020-08-29] MEDS: CLINDAMYCIN 900 MG in DEXTROSE 5% IN WATER 50 ML IVPB SCH ×4 (13:37→21:49)
[2020-08-29] MEDS: PRAVASTATIN SODIUM 40 MG TAB PO SCH (21:50)
[2020-08-29] MEDS: LATANOPROST 0.005% OPHTH DROPS 2.5 ML BTL LEFT EYE SCH (21:50)
[2020-08-29] MEDS: lisinopriL 10 MG TAB PO SCH (21:50)
[2020-08-30] MEDS: CLINDAMYCIN 900 MG in DEXTROSE 5% IN WATER 50 ML IVPB SCH ×2 (01:53)
[2020-08-30] MEDS: SODIUM CHLORIDE 0.9% 1,000 ML IV SCH ×4 (01:56→22:30)
[2020-08-30] MEDS: PANTOPRAZOLE 40 MG TABLET PO SCH (06:39)
[2020-08-30] MEDS: LEVOTHYROXINE 25 MCG TAB PO SCH (06:39)
[2020-08-30] MEDS: DONEPEZIL 10 MG TAB PO SCH (08:55)
[2020-08-30] MEDS: FUROSEMIDE 40 MG TAB PO SCH (08:55)
[2020-08-30] MEDS: SPIRONOLACTONE 25 MG TAB PO SCH (08:55)
[2020-08-30] MEDS: CYANOCOBALAMIN 500 MCG TAB PO SCH (08:55)
[2020-08-30] MEDS: SENNOSIDES-DOCUSATE SODIUM 1 EACH TAB PO SCH ×2 (08:56→19:49)
[2020-08-30 09:16] LABS: Basophils % (A) 1 %; Eosinophils # (A) 0.1 k/uL (0-0.7); Eosinophils % (A) 2 %; HCT 38.4 % (34.0-46.0); HGB 12.6 gm/dL (11.4-16.0); Lymphocytes # (A) 0.4 k/uL (1.0-4.8); Lymphocytes % (A) 8 %; MCH 29.9 pg (25.0-35.0); MCHC 32.9 g/dL (31.0-37.0); MCV 90.8 fL (80.0-100.0); Mean Platelet Volume 7.8; Monocytes # (A) 0.3 k/uL (0-1.0); Monocytes % (A) 6 %; Neutrophils # (A) 4.3 k/uL (1.3-7.7); Neutrophils % (A) 83 %; Platelet Count 185 k/uL (150-450); RBC 4.23 m/uL (3.80-5.40); RDW 12.5 % (11.5-15.5); WBC 5.2 k/uL (3.8-10.6)
[2020-08-30] MEDS: TIOTROPIUM 2.5 MCG INHALER INHALATION SCH (10:27)
--- NOTE | 2020-08-30 16:59 | XR ---
EXAMINATION TYPE: XR chest 1V portable DATE OF EXAM: 08/30/2020 COMPARISON: Yesterday HISTORY: Short of breath TECHNIQUE: FINDINGS: Heart is enlarged. There is coarsening of interstitial markings. There is left axillary pac emaker. Bony thorax is intact. There is no gross heart failure. IMPRESSION: Mild pulmonary fibrosis. Cardiomegaly. There is clearing of the pulmonary congestion comp ared to yesterday.
--- NOTE | 2020-08-30 18:31 | P.PN ---
Subjective HISTORY OF PRESENTING ILLNESS Patient is a pleasant 89 yo female with history of mild dementia, chronic Afib, HLD, HTN, diastolic heart failure, pulmonary hypertension, tricuspid regurgitation. I had recently seen patient in the office 08/22 where she had been complaining of increasing episodes of lightheadedness which can occur mainly with walking. She has always been somewhat unsteady on her feet walking with a walker however now has noted feeling more lightheaded. We therefore were making arrangements for 1 week monitor as this was happening on a daily basis. She also had a recent echo in the office 07/29/2020 which showed EF 55% grade 3 diastolic dysfunction, PFO, moderate to severe MR, moderate TR, RVSP 63. She has been doing well on her anticoagulation with Xarelto. She has not been on any rate contolling medications and only Aricept that may cause mild bradycardia. She has been having persistent lightheadedness and therefore came to ER where initial EKG showed Afib with HR in the 30's at 39. She denies any syncope. She does have some chronic SEGAL. She initially was given some IVF then given Lasix 20mg IV. DIAGNOSTICS Troponin normal x 3, Cr 1.09, BUN 22, TSH 3.5 08/28 Patient seen and examined. Orthostatic vitals not performed. Telemetry reviewed with occasional heart rates in the high 30s and mainly in the 40s. She denies any chest pain or pressure. She still does get lightheaded standing up walking to the bathroom. No syncopal episodes. Aricept has been held. 08/30 Patient underwent successful his bundle pacing pacemaker placement yesterday. Pacemaker interrogated this morning with adequate sensing and pacing parameters. Chest x-ray performed shows improvement in aeration and no acute process from pacemaker. Patient however did have episode of feeling somewhat short of breath earlier today. She believes this might of been from anxiety and feeling "jittery "and "hyper ". Patient admits she has been feeling somewhat on edge since being in the hospital. She did however desaturate with walking with oxygen saturations down into the 80s, normal on room air at rest. REVIEW OF SYSTEMS At the time of my exam: CONSTITUTIONAL: +weakness. Denies fever or chills. CARDIOVASCULAR: Denies chest pain, +mild chronic shortness of breath, no orthopnea, PND or palpitations. RESPIRATORY: Denies cough. GASTROINTESTINAL: Denies abdominal pain, diarrhea, constipation, nausea or vomiting. MUSCULOSKELETAL: Denies myalgias. NEUROLOGIC: Denies numbness, tingling, headacbe or weakness. ENDOCRINE: Denies fatigue, weight change, polydipsia or polyurina. GENITOURINARY: Denies burning, hematuria or urgency with micturation. HEMATOLOGIC: Denies history of anemia or bleeding. PHYSICAL EXAMINATION Vitals reviewed CONSTITUTIONAL: No apparent distress. HEENT: Head is normocephalic. Pupils are equal, round. Mucous membranes of the mouth are dry. No JVD. No carotid bruit. CHEST EXAMINATION: Lungs are clear to auscultation. No chest wall tenderness is noted on palpation or with deep breathing. HEART EXAMINATION: Irregular rate and rhythm. S1, S2 heard. +2/6 systolic murmur, no gallops or rub. +PPM site c/d/i ABDOMEN: Soft, Positive bowel sounds. EXTREMITIES: 2+ peripheral pulses, no LE edema NEUROLOGIC EXAMINATION: No focal deficits noted ASSESSMENT 1. Chronic Afib 2. Symptomatic bradycardia, s/p His bundle PPM placement 08/29 3. Lightheadedness 4. Acute on chronic diastolic heart failure 5. Moderate to severe mitral regurgitation 6. Pyuria, questionable UTI vs more likely colonization 7. Essential hypertension 8. Mild dementia 9. Acute on chronic hypoxic respiratory failure. Likely mainly related to diastolic heart failure PLAN Patient had successful permanent pacemaker placement. Chest x-ray performed which shows adequate positioning as well as interrogation shows pacemaker working appropriately. Patient however does have some shortness breath and noted to be mildly hypoxic with ambulation. We will check a BMP however suspect mainly related to her chronic diastolic heart failure with restrictive filling patterns noted on echo. Give dose of IV Lasix now. Monitor response and evaluate tomorrow. Hopeful discharge tomorrow morning if feeling better. Objective - Vital Signs Vital signs: Vital Signs Temp 97.8 F 08/30/20 16:45 Pulse 60 08/30/20 16:45 Resp 16 08/30/20 16:45 BP 110/62 08/30/20 16:45 Pulse Ox 100 08/30/20 16:45 Intake & Output 08/29/20 08/30/20 08/30/20 18:59 06:59 18:59 Intake Total 450 910 480 Output Total 500 300 Balance -50 910 180 Weight 78 kg Intake: IV 450 Intake, IV Titration 300 Amount Clindamycin 900 mg In 50 Dextrose 5% in Water 50 ml @ 50 mls/hr IVPB Q6H [facility] Rx#:[id number] Sodium Chloride 0.9% 1, 250 000 ml @ 50 mls/hr IV . Q20H [facility] Rx#:[id number] Oral 610 480 Output: Urine 500 300 Other: Voiding Method Toilet Toilet # Voids 1 2 # Bowel Movements 0 - Labs CBC & Chem 7: 08/30/20 08:41 08/27/20 03:48 Labs: Abnormal Lab Results - Last 24 Hours (Table) 08/30/20 Range/Units 08:41 Lymphocytes # 0.4 L (1.0-4.8) k/uL
[2020-08-30] MEDS ORDERED: FUROSEMIDE 10 MG/ML 10 ML VIAL IV STA (18:32)
[2020-08-30] MEDS: ACETAMINOPHEN TAB 325 MG TAB PO PRN (19:40)
[2020-08-30] MEDS: LATANOPROST 0.005% OPHTH DROPS 2.5 ML BTL LEFT EYE SCH (19:41)
[2020-08-30] MEDS: PRAVASTATIN SODIUM 40 MG TAB PO SCH (19:41)
[2020-08-30] MEDS: lisinopriL 10 MG TAB PO SCH (19:41)
[2020-08-30] MEDS: LORazepam 0.5 MG TAB PO PRN (22:40)
--- NOTE | 2020-08-30 23:26 | P.PN ---
Subjective Progress Note Date: 08/30/20 Principal diagnosis: Bradycardia Ms. Hernandez is an 89-year-old female with a past medical history of atrial fibrillation, GI bleed, CHF, COPD, GERD, hypertension, hyperlipidemia, RLS coming in with a chief complaint of some dizziness. Patient was found to have bradycardia with heart rates in 30s to 50s. Chest x-ray showed mild vascular congestion. On 08/30/2020 -patient was seen and examined at the bedside. She underwent pacemaker placement yesterday. Today she is resting comfortably in bed appears to be no acute distress. As per nursing staff report patient has been having mild difficulty in breathing with activity, dropping her saturations to high 80s but at rest is saturations have been around low 90s. Patient denies having any dizziness chest pain or palpitations. She denies having any cough or difficulty in breathing. No abdominal pain nausea vomiting or diarrhea. No dysuria or hematuria. On reviewing the vitals T-max 97.8, heart rate 60, respiratory 16, blood pressure 110/62 saturating at 99% on 2 L of nasal cannula. On reviewing the labs from this morning white count of 5.2, hemoglobin 12.6, platelets 185. Active Medications Acetaminophen (Acetaminophen Tab 325 Mg Tab) 650 mg PO Q6HR PRN PRN Reason: Mild Pain Last Admin: 08/30/20 19:40 Dose: 650 mg Documented by: Cyanocobalamin (Cyanocobalamin 500 Mcg Tab) 1,000 mcg PO DAILY [facility] Last Admin: 08/30/20 08:55 Dose: 1,000 mcg Documented by: Donepezil HCl (Donepezil 10 Mg Tab) 10 mg PO DAILY [facility] Last Admin: 08/30/20 08:55 Dose: 10 mg Documented by: Furosemide (Furosemide 40 Mg Tab) 40 mg PO DAILY [facility] Last Admin: 08/30/20 08:55 Dose: 40 mg Documented by: Sodium Chloride (Saline 0.9%) 1,000 mls @ 50 mls/hr IV .Q20H [facility] Last Admin: 08/30/20 22:30 Dose: Not Given Documented by: Sodium Chloride (Saline 0.9%) 1,000 mls @ 50 mls/hr IV .Q20H [facility] Last Admin: 08/30/20 22:30 Dose: Not Given Documented by: Latanoprost (Latanoprost 0.005% Ophth Drops 2.5 Ml Btl) 1 drops LEFT EYE [facility] Last Admin: 08/30/20 19:41 Dose: 1 drops Documented by: Levothyroxine Sodium (Levothyroxine 25 Mcg Tab) 25 mcg PO DAILY@0630 [facility] Last Admin: 08/30/20 06:39 Dose: 25 mcg Documented by: Lisinopril (Lisinopril 10 Mg Tab) 10 mg PO [facility] Last Admin: 08/30/20 19:41 Dose: 10 mg Documented by: Lorazepam (Lorazepam 0.5 Mg Tab) 0.5 mg PO HS PRN PRN Reason: Anxiety Last Admin: 08/30/20 22:40 Dose: 0.5 mg Documented by: Naloxone HCl (Naloxone 0.4 Mg/Ml 1 Ml Vial) 0.2 mg IV Q2M PRN PRN Reason: Opioid Reversal Pantoprazole Sodium (Pantoprazole 40 Mg Tablet) 40 mg PO AC-BRKFST [facility] Last Admin: 08/30/20 06:39 Dose: 40 mg Documented by: Pravastatin Sodium (Pravastatin Sodium 40 Mg Tab) 40 mg PO [facility] Last Admin: 08/30/20 19:41 Dose: 40 mg Documented by: Senna/Docusate Sodium (Sennosides-Docusate Sodium 1 Each Tab) 2 each PO BID [facility] Last Admin: 08/30/20 19:49 Dose: Not Given Documented by: Sodium Chloride (Sodium Chloride 0.9% Flush 10 Ml Syringe) 10 ml IV Q12HR [facility] Last Admin: 08/30/20 19:42 Dose: 10 ml Documented by: Spironolactone (Spironolactone 25 Mg Tab) 25 mg PO DAILY [facility] Last Admin: 08/30/20 08:55 Dose: 25 mg Documented by: Tiotropium [place] (Tiotropium 2.5 Mcg Inhaler) 2 puff INHALATION RT-DAILY [facility] Last Admin: 08/30/20 10:27 Dose: 2 puff Documented by: Objective - Vital Signs Vital signs: Vital Signs Temp 97.8 F 08/30/20 08:48 Pulse 65 08/30/20 11:30 Resp 18 08/30/20 11:30 BP 142/83 08/30/20 11:30 Pulse Ox 97 08/30/20 11:30 Intake & Output 08/29/20 08/30/2021 18:59 06:59 18:59 Intake Total 450 910 240 Output Total 500 Balance -50 910 240 Weight 78 kg Intake: IV 450 Intake, IV Titration 300 Amount Clindamycin 900 mg In 50 Dextrose 5% in Water 50 ml @ 50 mls/hr IVPB Q6H [facility] Rx#:[id number] Sodium Chloride 0.9% 1, 250 000 ml @ 50 mls/hr IV . Q20H [facility] Rx#:[id number] Oral 610 240 Output: Urine 500 Other: Voiding Method Toilet Toilet # Voids 1 1 # Bowel Movements 0 - Exam GENERAL: The patient is alert and oriented x3, not in any acute distress. Well developed, well nourished. HEENT: Pupils are round and equally reacting to light. EOMI. No scleral icterus. No conjunctival pallor. CARDIOVASCULAR: S1 and S2 present. No murmurs, rubs, or gallops. PULMONARY: Chest is clear to auscultation, no wheezing or crackles. ABDOMEN: Soft, nontender, nondistended, normoactive bowel sounds. No palpable organomegaly. MUSCULOSKELETAL: No joint swelling or deformity. EXTREMITIES: No cyanosis, clubbing, or pedal edema. NEUROLOGICAL: Gross neurological examination did not reveal any focal deficits. SKIN: No rashes. no petechiae. - Labs CBC & Chem 7: 08/30/20 08:41 08/27/20 03:48 Labs: Abnormal Lab Results - Last 24 Hours (Table) 08/30/20 Range/Units 08:41 Lymphocytes # 0.4 L (1.0-4.8) k/uL Microbiology - Last 24 Hours (Table) 08/27/20 23:45 Urine Culture - Final Urine,Voided Assessment and Plan Assessment: ASSESSMENT Symptomatic bradycardia , status post pacemaker placement on 08/29. Today postop day #1 Chronic A. fib currently with bradycardia mild acute on chronic diastolic CHF with ejection fraction 50-55% , resolved Acute urinary tract infection, resolved with treatment. No need for antibiotic. Chronic increased frequency of urination for 6-12 months. Check bladder scan Moderate mitral regurgitation Hypertension Hyperlipidemia Chronic kidney disease, stage III History of GI bleed History of GERD Restless leg syndrome PLAN: Patient is status post pacemaker placement yesterday. Continue with telemetry monitoring. Patient has mild difficulty in breathing, will get a chest x-ray. Her ceftriaxone has been discontinued as she does not have UTI. Labs and medications reviewed. Continue with the current medication regimen. We will continue to monitor electrolytes and vitals. GI DVT prophylaxis. Further recommendations to follow depending on the progress of the patient.
[2020-08-31] MEDS: PANTOPRAZOLE 40 MG TABLET PO SCH (06:32)
[2020-08-31] MEDS: LEVOTHYROXINE 25 MCG TAB PO SCH (06:32)
[2020-08-31] MEDS: CYANOCOBALAMIN 500 MCG TAB PO SCH (08:21)
[2020-08-31] MEDS: SENNOSIDES-DOCUSATE SODIUM 1 EACH TAB PO SCH ×2 (08:21→19:53)
[2020-08-31] MEDS: FUROSEMIDE 40 MG TAB PO SCH (08:21)
[2020-08-31] MEDS: DONEPEZIL 10 MG TAB PO SCH (08:21)
[2020-08-31] MEDS: SPIRONOLACTONE 25 MG TAB PO SCH (08:21)
[2020-08-31 09:35] LABS: Basophils % (A) 1 %; Eosinophils # (A) 0.1 k/uL (0-0.7); Eosinophils % (A) 2 %; HCT 39.8 % (34.0-46.0); HGB 13.3 gm/dL (11.4-16.0); Lymphocytes # (A) 0.6 k/uL (1.0-4.8); Lymphocytes % (A) 10 %; MCH 29.8 pg (25.0-35.0); MCHC 33.3 g/dL (31.0-37.0); MCV 89.6 fL (80.0-100.0); Mean Platelet Volume 7.3; Monocytes # (A) 0.5 k/uL (0-1.0); Monocytes % (A) 8 %; Neutrophils # (A) 4.7 k/uL (1.3-7.7); Neutrophils % (A) 78 %; Platelet Count 170 k/uL (150-450); RBC 4.44 m/uL (3.80-5.40); RDW 12.3 % (11.5-15.5); WBC 6.1 k/uL (3.8-10.6)
[2020-08-31 09:58] LABS: Calcium 9.5 mg/dL (8.4-10.2); Magnesium 1.9 mg/dL (1.6-2.3); Phosphorus 3.7 mg/dL (2.5-4.5); Potassium 4.7 mmol/L (3.5-5.1)
[2020-08-31] MEDS ORDERED: RIVAROXABAN 15 MG TAB PO SCH (17:30)
--- NOTE | 2020-08-31 19:38 | P.PN ---
Subjective HISTORY OF PRESENTING ILLNESS Patient is a pleasant 89 yo female with history of mild dementia, chronic Afib, HLD, HTN, diastolic heart failure, pulmonary hypertension, tricuspid regurgitation. I had recently seen patient in the office 08/22 where she had been complaining of increasing episodes of lightheadedness which can occur mainly with walking. She has always been somewhat unsteady on her feet walking with a walker however now has noted feeling more lightheaded. We therefore were making arrangements for 1 week monitor as this was happening on a daily basis. She also had a recent echo in the office 07/29/2020 which showed EF 55% grade 3 diastolic dysfunction, PFO, moderate to severe MR, moderate TR, RVSP 63. She has been doing well on her anticoagulation with Xarelto. She has not been on any rate contolling medications and only Aricept that may cause mild bradycardia. She has been having persistent lightheadedness and therefore came to ER where initial EKG showed Afib with HR in the 30's at 39. She denies any syncope. She does have some chronic SEGAL. She initially was given some IVF then given Lasix 20mg IV. DIAGNOSTICS Troponin normal x 3, Cr 1.09, BUN 22, TSH 3.5 08/28 Patient seen and examined. Orthostatic vitals not performed. Telemetry reviewed with occasional heart rates in the high 30s and mainly in the 40s. She denies any chest pain or pressure. She still does get lightheaded standing up walking to the bathroom. No syncopal episodes. Aricept has been held. 08/30 Patient underwent successful his bundle pacing pacemaker placement yesterday. Pacemaker interrogated this morning with adequate sensing and pacing parameters. Chest x-ray performed shows improvement in aeration and no acute process from pacemaker. Patient however did have episode of feeling somewhat short of breath earlier today. She believes this might of been from anxiety and feeling "jittery "and "hyper ". Patient admits she has been feeling somewhat on edge since being in the hospital. She did however desaturate with walking with oxygen saturations down into the 80s, normal on room air at rest. 08/31 Patient seen and examined. Patient still with some hypoxia with exertion and therefore discharge has been held. She states she feels as good as she does at home if not better. No issues with her pacemaker and has been feeling well. REVIEW OF SYSTEMS At the time of my exam: CONSTITUTIONAL: +weakness. Denies fever or chills. CARDIOVASCULAR: Denies chest pain, +mild chronic shortness of breath, no orthopnea, PND or palpitations. RESPIRATORY: Denies cough. GASTROINTESTINAL: Denies abdominal pain, diarrhea, constipation, nausea or vomiting. MUSCULOSKELETAL: Denies myalgias. NEUROLOGIC: Denies numbness, tingling, headacbe or weakness. ENDOCRINE: Denies fatigue, weight change, polydipsia or polyurina. GENITOURINARY: Denies burning, hematuria or urgency with micturation. HEMATOLOGIC: Denies history of anemia or bleeding. PHYSICAL EXAMINATION Vitals reviewed CONSTITUTIONAL: No apparent distress. HEENT: Head is normocephalic. Pupils are equal, round. Mucous membranes of the mouth are dry. No JVD. No carotid bruit. CHEST EXAMINATION: Lungs are clear to auscultation. No chest wall tenderness is noted on palpation or with deep breathing. HEART EXAMINATION: Irregular rate and rhythm. S1, S2 heard. +2/6 systolic murmur, no gallops or rub. +PPM site c/d/i ABDOMEN: Soft, Positive bowel sounds. EXTREMITIES: 2+ peripheral pulses, no LE edema NEUROLOGIC EXAMINATION: No focal deficits noted ASSESSMENT 1. Chronic Afib 2. Symptomatic bradycardia, s/p His bundle PPM placement 08/29 3. Lightheadedness 4. Acute on chronic diastolic heart failure 5. Moderate to severe mitral regurgitation 6. Pyuria, questionable UTI vs more likely colonization 7. Essential hypertension 8. Mild dementia 9. Acute on chronic hypoxic respiratory failure. Possibly related to diastolic heart failure PLAN Patient had successful permanent pacemaker placement. Chest x-ray performed which shows adequate positioning as well as interrogation shows pacemaker working appropriately. ProBNP noted to be only 1100. May be some component of hypoxia from her diastolic heart failure when she exerts herself however appears at her baseline. It is reasonable to attempt oxygen at home and monitor response however suspect she is mainly at her baseline. Hopeful discharge home tomorrow. Objective - Vital Signs Vital signs: Vital Signs Temp 97.7 F 08/31/20 16:30 Pulse 60 08/31/20 16:30 Resp 16 08/31/20 16:30 BP 154/72 08/31/20 16:30 Pulse Ox 97 08/31/20 16:30 Intake & Output 0408/31/20 09/01/20 06:59 18:59 06:59 Intake Total 250 1220 Output Total 1400 400 Balance -1150 820 Weight 77.4 kg Intake: Oral 250 1220 Output: Urine 1400 400 Other: Voiding Method Toilet Toilet # Voids 1 2 - Labs CBC & Chem 7: 08/31/20 08:51 08/31/20 08:51 Labs: Abnormal Lab Results - Last 24 Hours (Table) 08/31/20 08/31/20 Range/Units 08:51 08:51 Lymphocytes # 0.6 L (1.0-4.8) k/uL Sodium 136 L (137-145) mmol/L Chloride 97 L (98-107) mmol/L BUN 31 H (7-17) mg/dL Creatinine 1.25 H (0.52-1.04) mg/dL
[2020-08-31] MEDS: lisinopriL 10 MG TAB PO SCH (19:53)
[2020-08-31] MEDS: PRAVASTATIN SODIUM 40 MG TAB PO SCH (19:53)
[2020-08-31] MEDS: LATANOPROST 0.005% OPHTH DROPS 2.5 ML BTL LEFT EYE SCH (19:54)
[2020-08-31] MEDS: SODIUM CHLORIDE 0.9% 1,000 ML IV SCH ×2 (19:55)
[2020-08-31] MEDS: TIOTROPIUM 2.5 MCG INHALER INHALATION SCH (19:55)
[2020-08-31 19:57] VITALS: TEMP 97.9
[2020-08-31] MEDS: ACETAMINOPHEN TAB 325 MG TAB PO PRN (21:14)
[2020-08-31] MEDS: LORazepam 0.5 MG TAB PO PRN (22:57)
--- NOTE | 2020-09-01 00:21 | P.PN ---
Subjective Progress Note Date: 08/31/20 Principal diagnosis: Bradycardia Ms. Hernandez is an 89-year-old female with a past medical history of atrial fibrillation, GI bleed, CHF, COPD, GERD, hypertension, hyperlipidemia, RLS coming in with a chief complaint of some dizziness. Patient was found to have bradycardia with heart rates in 30s to 50s. Chest x-ray showed mild vascular congestion. On 08/30/2020 -patient was seen and examined at the bedside. She underwent pacemaker placement yesterday. Today she is resting comfortably in bed appears to be no acute distress. As per nursing staff report patient has been having mild difficulty in breathing with activity, dropping her saturations to high 80s but at rest is saturations have been around low 90s. Patient denies having any dizziness chest pain or palpitations. She denies having any cough or difficulty in breathing. No abdominal pain nausea vomiting or diarrhea. No dysuria or hematuria. On reviewing the vitals T-max 97.8, heart rate 60, respiratory 16, blood pressure 110/62 saturating at 99% on 2 L of nasal cannula. On reviewing the labs from this morning white count of 5.2, hemoglobin 12.6, platelets 185. On 08/31/2020 -patient was seen and examined at bedside. She still continues to have some difficulty in breathing. Patient has been maintaining her saturations above 90 at rest but with mild activity she is dropping her saturations to 80s. Other than that she denies having any chest pain or palpitations. No fever chills or rigors. No abdominal pain nausea vomiting or diarrhea. Patient is eager to go home. Patient son at bedside. Reviewing the vitals temperature 97.9, heart rate 60, respiratory rate 17 and saturating at 92% on room air. On reviewing the labs from this morning sodium is 136, potassium 4.7, chloride 97, bicarb 29, BUN 31, creatinine 1.25. White count of 6.1, hemoglobin 13.3, platelets 170. Patient had a chest x-ray done yesterday evening showing mild pulmonary fibrosis cardiomegaly and clearing up of pulmonary congestion. Patient's medications have been reviewed Objective - Vital Signs Vital signs: Vital Signs Temp 98 F 08/31/20 08:00 Pulse 66 08/31/20 11:35 Resp 16 08/31/20 14:30 BP 124/71 08/31/20 11:35 Pulse Ox 94 L 08/31/20 11:35 Intake & Output 08/30/20 08/31/20 08/31/20 18:59 06:59 18:59 Intake Total 720 250 480 Output Total 300 1400 Balance 420 -1150 480 Weight 77.4 kg Intake: Oral 720 250 480 Output: Urine 300 1400 Other: Voiding Method Toilet Toilet Toilet # Voids 2 1 2 - Exam GENERAL: The patient is alert and oriented x3, not in any acute distress. [place] CHIN HEENT: Pupils are round and equally reacting to light. EOMI. No scleral icterus. No conjunctival pallor. CARDIOVASCULAR: S1 and S2 present. No murmurs, rubs, or gallops. PULMONARY: Chest is clear to auscultation, no wheezing or crackles. ABDOMEN: Soft, nontender, nondistended, normoactive bowel sounds. No palpable organomegaly. MUSCULOSKELETAL: No joint swelling or deformity. EXTREMITIES: No cyanosis, clubbing, or pedal edema. NEUROLOGICAL: Gross neurological examination did not reveal any focal deficits. SKIN: No rashes. no petechiae. - Labs CBC & Chem 7: 08/31/20 08:51 08/31/20 08:51 Labs: Abnormal Lab Results - Last 24 Hours (Table) 08/31/20 08/31/20 Range/Units 08:51 08:51 Lymphocytes # 0.6 L (1.0-4.8) k/uL Sodium 136 L (137-145) mmol/L Chloride 97 L (98-107) mmol/L BUN 31 H (7-17) mg/dL Creatinine 1.25 H (0.52-1.04) mg/dL Assessment and Plan Assessment: ASSESSMENT Symptomatic bradycardia , status post pacemaker placement on 08/29. Today postop day #1 Chronic A. fib currently with bradycardia mild acute on chronic diastolic CHF with ejection fraction 50-55% , resolved Acute urinary tract infection, resolved with treatment. No need for antibiotic. Chronic increased frequency of urination for 6-12 months. Check bladder scan Moderate mitral regurgitation Hypertension Hyperlipidemia Chronic kidney disease, stage III History of GI bleed History of GERD Restless leg syndrome PLAN: Patient is status post pacemaker placement yesterday. Continue with telemetry monitoring. Her ceftriaxone has been discontinued as she does not have UTI. Labs and medications reviewed. Patient's chest x-ray from last evening showed clearing up of pulmonary vascular congestion. Patient will need home oxygen evaluation prior to discharge. As per discussion with the son she also needs a wheelchair, health social work professor/ disease case manager rn to be taking care of this. Continue with the current medication regimen. We will continue to monitor electrolytes and vitals. GI DVT prophylaxis. Anticipate discharge in the next 24 hrs.
[2020-09-01] MEDS: LEVOTHYROXINE 25 MCG TAB PO SCH (06:43)
[2020-09-01] MEDS: PANTOPRAZOLE 40 MG TABLET PO SCH (06:43)
[2020-09-01] MEDS: CYANOCOBALAMIN 500 MCG TAB PO SCH (08:48)
[2020-09-01] MEDS: FUROSEMIDE 40 MG TAB PO SCH (08:48)
[2020-09-01] MEDS: SENNOSIDES-DOCUSATE SODIUM 1 EACH TAB PO SCH (08:48)
[2020-09-01] MEDS: DONEPEZIL 10 MG TAB PO SCH (08:48)
[2020-09-01] MEDS: SPIRONOLACTONE 25 MG TAB PO SCH (08:48)
[2020-09-01 10:34] LABS: Basophils % (A) 1 %; Eosinophils % (A) 1 %; HCT 39.5 % (34.0-46.0); HGB 13.5 gm/dL (11.4-16.0); Lymphocytes # (A) 0.6 k/uL (1.0-4.8); Lymphocytes % (A) 11 %; MCH 30.8 pg (25.0-35.0); MCHC 34.2 g/dL (31.0-37.0); MCV 89.8 fL (80.0-100.0); Mean Platelet Volume 7.4; Monocytes # (A) 0.4 k/uL (0-1.0); Monocytes % (A) 6 %; Neutrophils # (A) 4.6 k/uL (1.3-7.7); Neutrophils % (A) 80 %; Platelet Count 169 k/uL (150-450); RDW 12.2 % (11.5-15.5); WBC 5.8 k/uL (3.8-10.6)
[2020-09-01 10:58] LABS: Calcium 9.5 mg/dL (8.4-10.2); Potassium 4.3 mmol/L (3.5-5.1)
[2020-09-01] MEDS: ACETAMINOPHEN TAB 325 MG TAB PO PRN (11:10)
[2020-09-01 14:01] VITALS: RESP 18
[2020-09-01 14:44] VITALS: BP 138/63; PULSE 64
[2020-09-01] MEDS ORDERED: lisinopriL 5 MG TAB PO SCH (21:00)
--- NOTE | 2020-09-02 16:41 | P.DS ---
Providers Date of admission: 08/27/20 05:31 Expected date of discharge: 09/01/20 Attending physician: Saurabh Ma Consults: 08/27/20 05:31 Consult Physician Routine Consulting Provider: Cheko Mccain Consult Reason/Comments: Symptomatic bradycardia Do you want consulting provider notified?: Yes Primary care physician: Saurabh Ma [facility] Course: Final diagnoses Symptomatic bradycardia , status post pacemaker placement on 08/29. Acute on chronic hypoxic respiratory failure, improved, greater than 90% on room air after ambulation. Chronic A. fib currently with bradycardia mild acute on chronic diastolic CHF with ejection fraction 50-55% , resolved Moderate to severe mitral regurgitation Hypertension Hyperlipidemia Chronic kidney disease, stage III History of GI bleed History of GERD Restless leg syndrome Hospital course ; this is an 81-year-old female with chronic atrial fibrillation admitted with symptomatic bradycardia, evaluated by cardiology and underwent permanent pacemaker implantation. Tolerated procedure well.Interrogation reported as working appropriately. Patient will be evaluated for home oxygen prior to discharge. Orthostatic hypotension resolved, blood pressure sitting 102/63, standing 99/54. Denies lightheadedness dizziness or focal deficits. Urine culture reported no growth. Significant clinical improvement.Cleared by cardiology for discharge. Patient will be discharged home to [facility] in a stable condition with guarded prognosis. Patient and family have declined home care, reporting niece will be staying with patient. - Exam GENERAL: The patient is alert and oriented x3, not in any acute distress. [place] CARDIOVASCULAR: S1 and S2 present. No murmurs, rubs, or gallops. No edema. PULMONARY: Chest is clear to auscultation. ABDOMEN: Soft, nontender, nondistended, normoactive bowel sounds. No palpable organomegaly. NEUROLOGICAL: Gross neurological examination did not reveal any focal deficits. The impression and plan of care has been dictated as directed. : I performed a history and examination of this patient, discussed the same with the dictator. I agree with the dictator's note ,documented as a scribe. Any additional findings or plans will be noted. Patient Condition at Discharge: Stable Plan - Discharge Summary Discharge Rx Participant: No New Discharge Prescriptions: New Sennosides-Docusate Sodium [Senokot-S] 2 each PO BID tab lisinopriL [Zestril] 5 mg PO HS #30 tab Acetaminophen Tab [Tylenol] 650 mg PO Q6HR PRN tab PRN Reason: Mild Pain Continue LORazepam [Ativan] 0.5 mg PO HS PRN PRN Reason: Anxiety/restless legs rOPINIRole HCL [Requip] 1 mg PO HS Rivaroxaban [Xarelto] 15 mg PO HS Pravastatin Sodium [Pravachol] 40 mg PO HS Omeprazole [PriLOSEC] 20 mg PO AC-BRKFST Tiotropium 18 Mcg/Puff [Spiriva] 2 puff INHALATION RT-DAILY Latanoprost Ophth [Xalatan 0.005%] 1 drops BOTH EYES HS Spironolactone [Aldactone] 25 mg PO DAILY Levothyroxine Sodium [Synthroid] 25 mcg PO DAILY Donepezil HCl [Aricept] 10 mg PO DAILY Cyanocobalamin (Vitamin B-12) [Vitamin B-12] 1,000 mcg PO DAILY Vit C/E/Zn/Coppr/Lutein/Zeaxan [Preservision Areds 2 Softgel] 2 cap PO DAILY Furosemide [Lasix] 20 mg PO DAILY Discontinued lisinopriL [Zestril] 10 mg PO HS Discharge Medication List LORazepam [Ativan] 0.5 mg PO HS PRN 12/08/14 [History] Omeprazole [PriLOSEC] 20 mg PO AC-BRKFST 12/08/14 [History] Pravastatin Sodium [Pravachol] 40 mg PO HS 12/08/14 [History] Rivaroxaban [Xarelto] 15 mg PO HS 12/08/14 [History] Tiotropium 18 Mcg/Puff [Spiriva] 2 puff INHALATION RT-DAILY 12/08/14 [History] rOPINIRole HCL [Requip] 1 mg PO HS 12/08/14 [History] Cyanocobalamin (Vitamin B-12) [Vitamin B-12] 1,000 mcg PO DAILY 01/17/19 [History] Donepezil HCl [Aricept] 10 mg PO DAILY 01/17/19 [History] Latanoprost Ophth [Xalatan 0.005%] 1 drops BOTH EYES HS 01/17/19 [History] Levothyroxine Sodium [Synthroid] 25 mcg PO DAILY 01/17/19 [History] Spironolactone [Aldactone] 25 mg PO DAILY 01/17/19 [History] Vit C/E/Zn/Coppr/Lutein/Zeaxan [Preservision Areds 2 Softgel] 2 cap PO DAILY 01/17/19 [History] Furosemide [Lasix] 20 mg PO DAILY 08/27/20 [History] Acetaminophen Tab [Tylenol] 650 mg PO Q6HR PRN tab 09/01/20 [Rx] Sennosides-Docusate Sodium [Senokot-S] 2 each PO BID tab 09/01/20 [Rx] lisinopriL [Zestril] 5 mg PO HS #30 tab 09/01/20 [Rx] Follow up Appointment(s)/Referral(s): Juan Jefferson MD [STAFF PHYSICIAN] - 09/19/20 (September [address] Hidalgo. OFFICE WILL ALL YOU TO SET UP APPOINTMENT FOR PACEMAKER. ) Saurabh Ma DO [Primary Care Provider] - 09/05/20 2:50 pm Ambulatory/Diagnostic Orders: Basic Metabolic Panel [LAB.AMB] Time Frame: 3 Days, Location: None Selected Patient Instructions/Handouts: Syncope (DC), Pacemaker (DC) Activity/Diet/Wound Care/Special Instructions: GÉNESIS shipley, send home with pt. Discharge Disposition: HOME SELF-CARE
== END 2020-09-01 17:35 | disposition home or self-care (01) | DRG 242 ==
LOC: EC 02:53 → 3SCARD 05:31
PROVIDERS: ADMIT Family Medicine; ATTEND Family Medicine
PROC: 02HK3JZ Insertion of Pacemaker Lead into Right Ventricle, Percutaneous Approach (ICD-10-PCS; principal; 2020-08-29 07:30)
PROC: 0JH607Z Insertion of Cardiac Resynchronization Pacemaker Pulse Generator into Chest Subcutaneous Tissue and Fascia, Open Approach (ICD-10-PCS; principal; 2020-08-29 07:30)
PROC: 02HL3JZ Insertion of Pacemaker Lead into Left Ventricle, Percutaneous Approach (ICD-10-PCS; principal; 2020-08-29 07:30)
DX: I48.21 Permanent atrial fibrillation (principal); I50.33 Acute on chronic diastolic (congestive) heart failure; J96.21 Acute and chronic respiratory failure with hypoxia; N39.0 Urinary tract infection, site not specified; I13.0 Hypertensive heart and chronic kidney disease with heart failure and stage 1 through stage 4 chronic kidney disease, or unspecified chronic kidney disease; Q21.1 Atrial septal defect; I27.20 Pulmonary hypertension, unspecified; R00.1 Bradycardia, unspecified; N18.30 Chronic kidney disease, stage 3 unspecified; F03.90 Unspecified dementia, unspecified severity, without behavioral disturbance, psychotic disturbance, mood disturbance, and anxiety; J84.10 Pulmonary fibrosis, unspecified; J44.9 Chronic obstructive pulmonary disease, unspecified; Z20.822 Contact with and (suspected) exposure to COVID-19; I08.1 Rheumatic disorders of both mitral and tricuspid valves; K21.9 Gastro-esophageal reflux disease without esophagitis; E78.5 Hyperlipidemia, unspecified; F41.9 Anxiety disorder, unspecified; G25.81 Restless legs syndrome; R26.81 Unsteadiness on feet; Z79.890 Hormone replacement therapy; Z79.01 Long term (current) use of anticoagulants; Z79.899 Other long term (current) drug therapy; Z90.49 Acquired absence of other specified parts of digestive tract; Z90.710 Acquired absence of both cervix and uterus; Z87.42 Personal history of other diseases of the female genital tract; Z87.19 Personal history of other diseases of the digestive system; Z98.42 Cataract extraction status, left eye; Z98.41 Cataract extraction status, right eye; Z96.653 Presence of artificial knee joint, bilateral; Z87.891 Personal history of nicotine dependence; Z98.890 Other specified postprocedural states; Z88.0 Allergy status to penicillin; Z88.2 Allergy status to sulfonamides; Z82.49 Family history of ischemic heart disease and other diseases of the circulatory system; Z80.49 Family history of malignant neoplasm of other genital organs; Z83.1 Family history of other infectious and parasitic diseases
CPT/HCPCS: 33208; 33225; 36415; 71045; 71046; 80048; 80053; 80069; 81001; 81003; 83735; 83880; 84145; 84443; 84484; 85025; 85610; 85730; 87086; 87635; 93005; 99285

== ENCOUNTER 2021-01-01 12:09 | Emergency (ER) | payer MEDICARE ==
[2021-01-01] MEDS ORDERED: LIDOCAINE 1% INJ 10MG/ML (20 ML MDV) SQ ONE (13:00)
--- NOTE | 2021-01-01 13:17 | ED ---
Lower Extremity Injury HPI - General Chief Complaint: Extremity Injury, Lower Stated Complaint: Fall/ leg lac Time Seen by Provider: 01/01/21 12:27 Source: patient Mode of arrival: EMS Limitations: no limitations - History of Present Illness Initial Comments: 89-year-old female presenting to the emergency department with chief complaint of a fall. States this occurred about one hour prior to arrival. Patient reports she was attempting to put on his shoes, lost her balance and fell backwards. States she caught her left foot on an object and caused a laceration to the anterior aspect of the left lower leg. Patient reports her tetanus is up-to-date. States she may have bumped the back of her head but is not completely sure. She denies any loss of consciousness. She denies any lightheadedness, his nose, shortness of breath, chest pain, one-sided weakness or paresthesias distal time. Patient is on xeralto. - Related Data Home Medications Medication Instructions Recorded Confirmed LORazepam [Ativan] 0.5 mg PO HS PRN 12/08/14 08/27/20 Omeprazole [PriLOSEC] 20 mg PO AC-BRKFST 12/08/14 08/27/20 Pravastatin Sodium [Pravachol] 40 mg PO HS 12/08/14 08/27/20 Rivaroxaban [Xarelto] 15 mg PO HS 12/08/14 08/27/20 Tiotropium 18 Mcg/Puff [Spiriva] 2 puff INHALATION RT-DAILY 12/08/14 08/27/20 rOPINIRole HCL [Requip] 1 mg PO HS 12/08/14 08/27/20 Cyanocobalamin (Vitamin B-12) 1,000 mcg PO DAILY 01/17/19 08/27/20 [Vitamin B-12] Donepezil HCl [Aricept] 10 mg PO DAILY 01/17/19 08/27/20 Latanoprost Ophth [Xalatan 0.005%] 1 drops BOTH EYES HS 01/17/19 08/27/20 Levothyroxine Sodium [Synthroid] 25 mcg PO DAILY 01/17/19 08/27/20 Spironolactone [Aldactone] 25 mg PO DAILY 01/17/19 08/27/20 Vit C/E/Zn/Coppr/Lutein/Zeaxan 2 cap PO DAILY 01/17/19 08/27/20 [Preservision Areds 2 Softgel] Furosemide [Lasix] 20 mg PO DAILY 08/27/20 08/27/20 Previous Rx's Medication Instructions Recorded Acetaminophen Tab [Tylenol] 650 mg PO Q6HR PRN tab 09/01/20 Sennosides-Docusate Sodium 2 each PO BID tab 09/01/20 [Senokot-S] lisinopriL [Zestril] 5 mg PO HS #30 tab 09/01/20 Allergies Allergy/AdvReac Type Severity Reaction Status Date / Time Penicillins Allergy Rash/Hives Verified 01/01/21 12:15 sulfamethoxazole Allergy Rash/Hives Verified 01/01/21 12:15 [From Bactrim] trimethoprim [From Bactrim] Allergy Rash/Hives Verified 01/01/21 12:15 Review of Systems ROS Statement: Those systems with pertinent positive or pertinent negative responses have been documented in the HPI. ROS Other: All systems not noted in ROS Statement are negative. Past Medical History Past Medical History: Atrial Fibrillation, Heart Failure, COPD, GERD/Reflux, GI Bleed, Hyperlipidemia, Hypertension Additional Past Medical History / Comment(s): restless leg syndrome History of Any Multi-Drug Resistant Organisms: None Reported Past Surgical History: Appendectomy, Cholecystectomy, Hysterectomy, Joint Replacement, Orthopedic Surgery Additional Past Surgical History / Comment(s): cataracts removed, bilateral kne es Past Anesthesia/Blood Transfusion Reactions: No Reported Reaction Past Psychological History: Anxiety Smoking Status: Former smoker Past Alcohol Use History: None Reported Past Drug Use History: None Reported - Past Family History Father Family Medical History: Coronary Artery Disease (CAD) Additional Family Medical History / Comment(s): rhemuatic fever, at 59 of "bad heart" Mother Family Medical History: Cancer Additional Family Medical History / Comment(s): uterus General Exam Limitations: no limitations General appearance: alert, in no apparent distress Head exam: Present: atraumatic, normocephalic, normal inspection. Absent: other (Negative Wells sign, raccoon eyes, hemotympanum.) Eye exam: Present: normal appearance, PERRL, EOMI Pupils: Present: normal accommodation ENT exam: Present: normal exam, normal oropharynx, mucous membranes moist, TM's normal bilaterally, normal external ear exam Neck exam: Present: normal inspection, full ROM. Absent: tenderness Respiratory exam: Present: normal lung sounds bilaterally. Absent: respiratory distress, wheezes, rales Cardiovascular Exam: Present: regular rate, normal rhythm, normal heart sounds. Absent: systolic murmur GI/Abdominal exam: Present: soft. Absent: distended, tenderness, guarding, r ebound Extremities exam: Present: full ROM, normal capillary refill, other (Palpable DP and PT bilaterally.). Absent: normal inspection (3 cm laceration to left lower leg), tenderness, pedal edema, joint swelling, calf tenderness Back exam: Present: normal inspection, full ROM. Absent: tenderness Neurological exam: Present: alert, oriented X3 Psychiatric exam: Present: normal affect, normal mood Skin exam: Present: warm, dry, intact, normal color Course Vital Signs 01/01/21 12:16 Temperature 97.2 F L Pulse Rate 84 Respiratory 20 Rate Blood Pressure 172/87 O2 Sat by Pulse 96 Oximetry Procedures - Laceration Laceration #1 Consent Obtained: verbal consent Indication: laceration Site: lower extremity Size (cm): 3 Description: linear, clean Depth: simple, single layer Sedation/Analgesia: none Anesthetic Used: lidocaine 1% Anesthesia Technique: local infiltration Amount (mls): 3 Pre-repair: irrigated extensively, deep structures intact Type of Sutures: nylon Size of Sutures: 4-0 Number of Sutures: 4 Technique: simple, interrupted Patient Tolerated Procedure: well, no complications Medical Decision Making - Medical Decision Making 89-year-old female presents to emergency department with a chief complaint of a fall. On physical examination, patient has a laceration to the anterior aspect of the left lower leg. No other signs of injury. CT of the brain and C-spine is unremarkable. CBC CMP coags and troponin within normal limits. Based on description, this appears to be purely mechanical fall from a standing level. Laceration site was thoroughly irrigated and repaired with 4 sutures. Patient tolerated procedure well. Return parameters were thoroughly discussed the kamaljit ent is understanding and agreeable. Case discussed with Dr. Valenzuela - Lab Data Result diagrams: 01/01/21 13:16 01/01/21 13:16 Lab Results 01/01/21 01/01/21 01/01/21 Range/Units 13:16 13:16 13:16 WBC 5.2 (3.8-10.6) k/uL RBC 4.17 (3.80-5.40) m/uL Hgb 12.8 (11.4-16.0) gm/dL Hct 38.3 (34.0-46.0) % MCV 91.9 (80.0-100.0) fL MCH 30.8 (25.0-35.0) pg MCHC 33.5 (31.0-37.0) g/dL RDW 12.6 (11.5-15.5) % Plt Count 189 (150-450) k/uL MPV 7.9 Neutrophils % 79 % Lymphocytes % 11 % Monocytes % 6 % Eosinophils % 1 % Basophils % 1 % Neutrophils # 4.1 (1.3-7.7) k/uL Lymphocytes # 0.6 L (1.0-4.8) k/uL Monocytes # 0.3 (0-1.0) k/uL Eosinophils # 0.1 (0-0.7) k/uL Basophils # 0.0 (0-0.2) k/uL PT 11.6 (9.0-12.0) sec INR 1.1 (<1.2) APTT 24.0 (22.0-30.0) sec Sodium 137 (137-145) mmol/L Potassium 4.2 (3.5-5.1) mmol/L Chloride 102 (98-107) mmol/L Carbon Dioxide 28 (22-30) mmol/L Anion Gap 7 mmol/L BUN 11 (7-17) mg/dL Creatinine 0.80 (0.52-1.04) mg/dL Est GFR (CKD-EPI)AfAm 76 (>60 ml/min/1.73 sqM) Est GFR (CKD-EPI)NonAf 66 (>60 ml/min/1.73 sqM) Glucose 103 H (74-99) mg/dL Calcium 9.5 (8.4-10.2) mg/dL Total Bilirubin 0.5 (0.2-1.3) mg/dL AST 23 (14-36) U/L ALT 9 (4-34) U/L Alkaline Phosphatase 113 (38-126) U/L Troponin I (0.000-0.034) ng/mL Total Protein 6.4 (6.3-8.2) g/dL Albumin 3.9 (3.5-5.0) g/dL 01/01/21 Range/Units 13:16 WBC (3.8-10.6) k/uL RBC (3.80-5.40) m/uL Hgb (11.4-16.0) gm/dL Hct (34.0-46.0) % MCV (80.0-100.0) fL MCH (25.0-35.0) pg MCHC (31.0-37.0) g/dL RDW (11.5-15.5) % Plt Count (150-450) k/uL MPV Neutrophils % % Lymphocytes % % Monocytes % % Eosinophils % % Basophils % % Neutrophils # (1.3-7.7) k/uL Lymphocytes # (1.0-4.8) k/uL Monocytes # (0-1.0) k/uL Eosinophils # (0-0.7) k/uL Basophils # (0-0.2) k/uL PT (9.0-12.0) sec INR (<1.2) APTT (22.0-30.0) sec Sodium (137-145) mmol/L Potassium (3.5-5.1) mmol/L Chloride (98-107) mmol/L Carbon Dioxide (22-30) mmol/L Anion Gap mmol/L BUN (7-17) mg/dL Creatinine (0.52-1.04) mg/dL Est GFR (CKD-EPI)AfAm (>60 ml/min/1.73 sqM) Est GFR (CKD-EPI)NonAf (>60 ml/min/1.73 sqM) Glucose (74-99) mg/dL Calcium (8.4-10.2) mg/dL Total Bilirubin (0.2-1.3) mg/dL AST (14-36) U/L ALT (4-34) U/L Alkaline Phosphatase (38-126) U/L Troponin I <0.012 (0.000-0.034) ng/mL Total Protein (6.3-8.2) g/dL Albumin (3.5-5.0) g/dL Disposition Clinical Impression: Fall, Laceration Disposition: HOME SELF-CARE Condition: Stable Instructions (If sedation given, give patient instructions): Care For Your Stitches (DC), Laceration (DC) Additional Instructions: Please return to the emergency room in 12-14 days to have sutures removed. Please watch for any signs of infection which may include increased pain, swelling, redness, fever or chills. Please return to emergency room for any signs of infection do occur. Please use clean soap and water over the area to prevent scabbing over your stitches. Please leave wound covered for the first 24-48 hours and then leave wound open to air. Please return to the emergency room for any other concerns. Is patient prescribed a controlled substance at d/c from ED?: No Referrals: Saurabh Ma DO [Primary Care Provider] - 1-2 days Time of Disposition: 14:34
[2021-01-01 13:35] LABS: Albumin 3.9 g/dL (3.5-5.0); Calcium 9.5 mg/dL (8.4-10.2); Potassium 4.2 mmol/L (3.5-5.1); Total Bilirubin 0.5 mg/dL (0.2-1.3); Total Protein 6.4 g/dL (6.3-8.2)
[2021-01-01 13:44] LABS: INR 1.1 (<1.2); Prothrombin Time 11.6 sec (9.0-12.0)
[2021-01-01 13:56] LABS: Basophils % (A) 1 %; Eosinophils # (A) 0.1 k/uL (0-0.7); Eosinophils % (A) 1 %; HCT 38.3 % (34.0-46.0); HGB 12.8 gm/dL (11.4-16.0); Lymphocytes # (A) 0.6 k/uL (1.0-4.8); Lymphocytes % (A) 11 %; MCH 30.8 pg (25.0-35.0); MCHC 33.5 g/dL (31.0-37.0); MCV 91.9 fL (80.0-100.0); Mean Platelet Volume 7.9; Monocytes # (A) 0.3 k/uL (0-1.0); Monocytes % (A) 6 %; Neutrophils # (A) 4.1 k/uL (1.3-7.7); Neutrophils % (A) 79 %; Platelet Count 189 k/uL (150-450); RBC 4.17 m/uL (3.80-5.40); RDW 12.6 % (11.5-15.5); WBC 5.2 k/uL (3.8-10.6)
--- NOTE | 2021-01-01 14:05 | CT ---
EXAMINATION TYPE: CT brain mena antonio DATE OF EXAM: 01/01/2021 COMPARISON: 01/17/2019 HISTORY: Fall today with head injury. CT DLP: 1374.[address] of the brain was performed. The ventricles, basal cisterns and sulci overlying the cerebral convexities demonstrate mild enlargem ent. There is no evidence for intracranial hemorrhage or sulcal effacement. There is decreased attenuatio n about the periventricular white matter and deep white matter of both cerebral hemispheres, compatib le with chronic small vessel ischemia. No mass effects are seen. If symptoms persist consider MRI. Osseous calvarium is intact. IMPRESSION: 1. Age related atrophic and chronic small vessel ischemic change without acute intracranial process seen at this time. CT Cervical Spine: Unenhanced CT of the cervical spine was performed with bone and soft tissue window settings submitted . Coronal and sagittal reconstruction is obtained. There is normal alignment and prevertebral soft tissues. No evidence for acute cervical fracture . Scattered degenerative disc disease and spondylosis. Biapical scarring. IMPRESSION: 1. No evidence for acute fracture or subluxation of the cervical spine.
[2021-01-01 14:54] VITALS: BP 158/91; PULSE 71; RESP 18; TEMP 97.8
== END 2021-01-01 15:04 | disposition home or self-care (01) ==
LOC: EC 12:09
DX: S91.312A Laceration without foreign body, left foot, initial encounter (principal); S09.90XA Unspecified injury of head, initial encounter; E78.5 Hyperlipidemia, unspecified; I10 Essential (primary) hypertension; J44.9 Chronic obstructive pulmonary disease, unspecified; I48.91 Unspecified atrial fibrillation; W01.0XXA Fall on same level from slipping, tripping and stumbling without subsequent striking against object, initial encounter; F41.9 Anxiety disorder, unspecified; Z87.891 Personal history of nicotine dependence; Z86.79 Personal history of other diseases of the circulatory system
CPT/HCPCS: 36415; 93005; 80053; 84484; 85025; 85610; 85730; 72125; 70450; 99284; 12002; J2001

== ENCOUNTER 2021-02-08 03:45 | Observation (INO) | payer MEDICARE ==
--- NOTE | 2021-02-08 05:01 | XR ---
EXAMINATION TYPE: XR chest 1V portable DATE OF EXAM: 02/08/2021 COMPARISON: 08/30/2020 HISTORY: Weakness TECHNIQUE: Single view FINDINGS: Heart is enlarged. There is mild pulmonary congestion. There is no definite pleural effusio n. There is left axillary pacemaker. IMPRESSION: Mild pulmonary congestion and cardiomegaly. Pulmonary vascularity increased compared to o ld exam.
--- NOTE | 2021-02-08 05:48 | ED ---
Extremity Problem HPI - General Chief complaint: Extremity Problem,Nontraumatic Stated complaint: Knee Pain Time Seen by Provider: 02/08/21 04:09 Source: patient, EMS Mode of arrival: EMS - History of Present Illness Initial comments: This patient is an 89-year-old woman who is brought by ambulance after she came to [facility] to get off of the commode. The patient states that she had gone to use the bathroom and number of hours ago. Once she was there she was not able to get to her feet. She states the weakness is bilateral. She denies any focality. She denies loss sensation. She in fact does complain of a little bit of burning type discomfort that she states is usual for her restless leg syndrome. The patient did not have chest pain or dyspnea. No nausea, vomiting, diarrhea. MD Complaint: other -: hour(s) Location: bilateral lower extremity History of Same: No -: No associated chest pain Radiation: none Quality: other (Weakness) Improves with: nothing Worsens with: nothing Associated Symptoms: denies other symptoms - Related Data Home Medications Medication Instructions Recorded Confirmed LORazepam [Ativan] 0.5 mg PO HS PRN 12/08/14 02/08/21 Omeprazole [PriLOSEC] 20 mg PO DAILY 12/08/14 02/08/21 Pravastatin Sodium [Pravachol] 40 mg PO HS 12/08/14 02/08/21 Rivaroxaban [Xarelto] 15 mg PO HS 12/08/14 02/08/21 Tiotropium 18 Mcg/Puff [Spiriva] 2 cap INHALATION RT-DAILY 12/08/14 02/08/21 rOPINIRole HCL [Requip] 1 mg PO HS PRN 12/08/14 02/08/21 Cyanocobalamin (Vitamin B-12) 1,000 mcg PO DAILY 01/17/19 02/08/21 [Vitamin B-12] Donepezil HCl [Aricept] 10 mg PO DAILY 01/17/19 02/08/21 Latanoprost Ophth [Xalatan 0.005%] 1 drop BOTH EYES HS 01/17/19 02/08/21 Levothyroxine Sodium [Synthroid] 25 mcg PO DAILY 01/17/19 02/08/21 Spironolactone [Aldactone] 25 mg PO DAILY 01/17/19 02/08/21 Vit C/E/Zn/Coppr/Lutein/Zeaxan 1 cap PO BID 01/17/19 02/08/21 [Preservision Areds 2 Softgel] Furosemide [Lasix] 20 mg PO DAILY 08/27/20 02/08/21 Lisinopril [Prinivil] 10 mg PO DIRECTED@2100 02/08/21 02/08/21 Psyllium Husk [Metamucil] 0.4 gm PO TID 02/08/21 02/08/21 Allergies Allergy/AdvReac Type Severity Reaction Status Date / Time Penicillins Allergy Rash/Hives Verified 02/08/21 09:04 sulfamethoxazole Allergy Rash/Hives Verified 02/08/21 09:04 [From Bactrim] trimethoprim [From Bactrim] Allergy Rash/Hives Verified 02/08/21 09:04 Review of Systems ROS Statement: Those systems with pertinent positive or pertinent negative responses have been documented in the HPI. ROS Other: All systems not noted in ROS Statement are negative. Constitutional: Reports: weakness. Denies: fever, chills Respiratory: Denies: cough, dyspnea Cardiovascular: Denies: chest pain, palpitations, edema Gastrointestinal: Denies: abdominal pain, vomiting, diarrhea Genitourinary: Denies: dysuria, hematuria Musculoskeletal: Denies: back pain Skin: Denies: rash Neurological: Denies: headache, weakness, numbness Past Medical History Past Medical History: Atrial Fibrillation, Heart Failure, COPD, GERD/Reflux, GI Bleed, Hyperlipidemia, Hypertension Additional Past Medical History / Comment(s): restless leg syndrome History of Any Multi-Drug Resistant Organisms: None Reported Past Surgical History: Appendectomy, Cholecystectomy, Hysterectomy, Joint Replacement, Orthopedic Surgery Additional Past Surgical History / Comment(s): cataracts removed, bilateral knees Past Anesthesia/Blood Transfusion Reactions: No Reported Reaction Past Psychological History: Anxiety Smoking Status: Former smoker Past Alcohol Use History: None Reported Past Drug Use History: None Reported - Past Family History Father Family Medical History: Coronary Artery Disease (CAD) Additional Family Medical History / Comment(s): rhemuatic fever, at 59 of "bad heart" Mother Family Medical History: Cancer Additional Family Medical History / Comment(s): uterus General Exam General appearance: alert, in no apparent distress Head exam: Present: atraumatic, normocephalic Eye exam: Present: normal appearance. Absent: scleral icterus, conjunctival injection ENT exam: Present: normal oropharynx Respiratory exam: Present: normal lung sounds bilaterally. Absent: respiratory distress, wheezes, rales, rhonchi, stridor Cardiovascular Exam: Present: regular rate, normal rhythm, normal heart sounds. Absent: systolic murmur, diastolic murmur, rubs, gallop GI/Abdominal exam: Present: soft. Absent: distended, tenderness, guarding, rebound, rigid, mass Extremities exam: Present: normal inspection, normal capillary refill. Absent: pedal edema, calf tenderness Back exam: Present: normal inspection. Absent: CVA tenderness (R), CVA tenderness (L) Neurological exam: Present: alert Skin exam: Present: warm, dry, intact, normal color. Absent: rash Course Vital Signs 02/08/21 02/08/21 02/08/21 03:48 04:10 05:54 Temperature 98.9 F Pulse Rate 74 70 72 Pulse Rate [ Pulse Oximetery ] Respiratory 20 20 20 Rate Blood Pressure 148/65 124/84 127/89 Blood Pressure [Right Arm] O2 Sat by Pulse 95 97 96 Oximetry 02/08/21 02/08/21 02/08/21 06:56 09:44 09:46 Temperature 98.3 F Pulse Rate 71 82 Pulse Rate [ 64 Pulse Oximetery ] Respiratory 20 18 20 Rate Blood Pressure 124/84 156/68 Blood Pressure 143/91 [Right Arm] O2 Sat by Pulse 96 97 100 Oximetry 02/08/21 12:05 Temperature 98.0 F Pulse Rate 63 Pulse Rate [ Pulse Oximetery ] Respiratory 16 Rate Blood Pressure 148/89 Blood Pressure [Right Arm] O2 Sat by Pulse 97 Oximetry Medical Decision Making - Lab Data Result diagrams: 02/10/21 07:41 02/10/21 07:41 Lab Results 02/08/21 02/08/21 02/08/21 Range/Units 04:51 04:51 04:51 WBC 19.1 H (3.8-10.6) k/uL RBC 4.39 (3.80-5.40) m/uL Hgb 13.0 (11.4-16.0) gm/dL Hct 39.4 (34.0-46.0) % MCV 89.8 (80.0-100.0) fL MCH 29.6 (25.0-35.0) pg MCHC 33.0 (31.0-37.0) g/dL RDW 12.1 (11.5-15.5) % Plt Count 194 (150-450) k/uL MPV 7.8 Neutrophils % 93 % Lymphocytes % 2 % Monocytes % 4 % Eosinophils % 0 % Basophils % 0 % Neutrophils # 17.8 H (1.3-7.7) k/uL Lymphocytes # 0.3 L (1.0-4.8) k/uL Monocytes # 0.8 (0-1.0) k/uL Eosinophils # 0.0 (0-0.7) k/uL Basophils # 0.0 (0-0.2) k/uL Sodium 131 L (137-145) mmol/L Potassium 4.6 (3.5-5.1) mmol/L Chloride 97 L (98-107) mmol/L Carbon Dioxide 23 (22-30) mmol/L Anion Gap 11 mmol/L BUN 15 (7-17) mg/dL Creatinine 1.00 (0.52-1.04) mg/dL Est GFR (CKD-EPI)AfAm 58 (>60 ml/min/1.73 sqM) Est GFR (CKD-EPI)NonAf 50 (>60 ml/min/1.73 sqM) Glucose 149 H (74-99) mg/dL Plasma Lactic Acid Cuco (0.7-2.0) mmol/L Calcium 9.6 (8.4-10.2) mg/dL Phosphorus 3.0 (2.5-4.5) mg/dL Magnesium 1.6 (1.6-2.3) mg/dL Total Bilirubin 1.4 H (0.2-1.3) mg/dL AST 50 H (14-36) U/L ALT 15 (4-34) U/L Alkaline Phosphatase 124 (38-126) U/L Troponin I (0.000-0.034) ng/mL C-Reactive Protein 2.4 H (<1.0) mg/dL NT-Pro-B Natriuret Pep pg/mL Total Protein 7.0 (6.3-8.2) g/dL Albumin 4.2 (3.5-5.0) g/dL Urine Color Yellow Urine Appearance Cloudy H (Clear) Urine pH 5.5 (5.0-8.0) Ur Specific [place] 1.013 (1.001-1.035) Urine Protein 1+ H (Negative) Urine Glucose (UA) Negative (Negative) Urine Ketones Negative (Negative) Urine Blood Small H (Negative) Urine Nitrite Negative (Negative) Urine Bilirubin Negative (Negative) Urine Urobilinogen <2.0 (<2.0) mg/dL Ur Leukocyte Esterase Large H (Negative) Urine RBC 3 (0-5) /hpf Urine WBC 16 H (0-5) /hpf Ur Squamous Epith Cells 9 H (0-4) /hpf Calcium Oxalate Crystal Rare H (None) /hpf Urine Bacteria Few H (None) /hpf Hyaline Casts 17 H (0-2) /lpf Urine Mucus Rare H (None) /hpf Urine Yeast (Budding) Rare H (None) /hpf 02/08/21 02/08/21 02/08/21 Range/Units 04:51 04:51 04:51 WBC (3.8-10.6) k/uL RBC (3.80-5.40) m/uL Hgb (11.4-16.0) gm/dL Hct (34.0-46.0) % MCV (80.0-100.0) fL MCH (25.0-35.0) pg MCHC (31.0-37.0) g/dL RDW (11.5-15.5) % Plt Count (150-450) k/uL MPV Neutrophils % % Lymphocytes % % Monocytes % % Eosinophils % % Basophils % % Neutrophils # (1.3-7.7) k/uL Lymphocytes # (1.0-4.8) k/uL Monocytes # (0-1.0) k/uL Eosinophils # (0-0.7) k/uL Basophils # (0-0.2) k/uL Sodium (137-145) mmol/L Potassium (3.5-5.1) mmol/L Chloride (98-107) mmol/L Carbon Dioxide (22-30) mmol/L Anion Gap mmol/L BUN (7-17) mg/dL Creatinine (0.52-1.04) mg/dL Est GFR (CKD-EPI)AfAm (>60 ml/min/1.73 sqM) Est GFR (CKD-EPI)NonAf (>60 ml/min/1.73 sqM) Glucose (74-99) mg/dL Plasma Lactic Acid Cuco 1.4 (0.7-2.0) mmol/L Calcium (8.4-10.2) mg/dL Phosphorus (2.5-4.5) mg/dL Magnesium (1.6-2.3) mg/dL Total Bilirubin (0.2-1.3) mg/dL AST (14-36) U/L ALT (4-34) U/L Alkaline Phosphatase (38-126) U/L Troponin I 0.049 H* (0.000-0.034) ng/mL C-Reactive Protein (<1.0) mg/dL NT-Pro-B Natriuret Pep 2540 pg/mL Total Protein (6.3-8.2) g/dL Albumin (3.5-5.0) g/dL Urine Color Urine Appearance (Clear) Urine pH (5.0-8.0) Ur Specific [place] (1.001-1.035) Urine Protein (Negative) Urine Glucose (UA) (Negative) Urine Ketones (Negative) Urine Blood (Negative) Urine Nitrite (Negative) Urine Bilirubin (Negative) Urine Urobilinogen (<2.0) mg/dL Ur Leukocyte Esterase (Negative) Urine RBC (0-5) /hpf Urine WBC (0-5) /hpf Ur Squamous Epith Cells (0-4) /hpf Calcium Oxalate Crystal (None) /hpf Urine Bacteria (None) /hpf Hyaline Casts (0-2) /lpf Urine Mucus (None) /hpf Urine Yeast (Budding) (None) /hpf - EKG Data -: EKG Interpreted by Mn EKG shows normal: axis (Normal), intervals (Normal) Interpretation: nonspecific ST-T wave changes, other (There is an intermittent paced rhythm, rate 72 bpm) Disposition Clinical Impression: Leukocytosis, Urinary tract infection, Elevated troponin Disposition: ADMITTED IP TO THIS HOSP Condition: Fair
[2021-02-08 05:53] LABS: Basophils % (A) 0 %; Eosinophils % (A) 0 %; HCT 39.4 % (34.0-46.0); Lymphocytes # (A) 0.3 k/uL (1.0-4.8); Lymphocytes % (A) 2 %; MCH 29.6 pg (25.0-35.0); MCV 89.8 fL (80.0-100.0); Mean Platelet Volume 7.8; Monocytes # (A) 0.8 k/uL (0-1.0); Monocytes % (A) 4 %; Neutrophils # (A) 17.8 k/uL (1.3-7.7); Neutrophils % (A) 93 %; Platelet Count 194 k/uL (150-450); RBC 4.39 m/uL (3.80-5.40); RDW 12.1 % (11.5-15.5); WBC 19.1 k/uL (3.8-10.6)
[2021-02-08 06:15] LABS: Albumin 4.2 g/dL (3.5-5.0); C Reactive Protein 2.4 mg/dL (<1.0); Calcium 9.6 mg/dL (8.4-10.2); Magnesium 1.6 mg/dL (1.6-2.3); Potassium 4.6 mmol/L (3.5-5.1); Total Bilirubin 1.4 mg/dL (0.2-1.3)
[2021-02-08 06:57] LABS: Appearance,Urine Cloudy (Clear); Bacteria,Urine Few /hpf; Bilirubin,Urine Negative (Negative); Blood,Urine Small (Negative); Budding Yeast,Urine Rare /hpf; Calcium Oxalate Crystals,Urine Rare /hpf; Color,Urine Yellow; Glucose,Urine (UA) Negative (Negative); Hyaline Casts,Urine 17 /lpf (0-2); Ketones,Urine Negative (Negative); Leukocyte Esterase,Urine Large (Negative); Mucus,Urine Rare /hpf; Nitrite,Urine Negative (Negative); PH, Urine 5.5 (5.0-8.0); Protein,Urine 1+ (Negative); RBC,Urine 3 /hpf (0-5); Specific Gravity,Urine 1.013 (1.001-1.035); Squamous Epithelial Cell,Urine 9 /hpf (0-4); Urobilinogen,Urine <2.0 mg/dL (<2.0); WBC,Urine 16 /hpf (0-5)
[2021-02-08] MEDS ORDERED: NALOXONE 0.4 MG/ML 1 ML VIAL IV PRN (07:56)
[2021-02-08] MEDS ORDERED: PRAMIPEXOLE 0.125 MG TAB PO STA (08:09)
[2021-02-08] MEDS: SODIUM CHLORIDE 0.9% 1,000 ML IV SCH ×2 (08:49→20:14)
[2021-02-08] MEDS ORDERED: lisinopriL 10 MG TAB PO ONE (19:15)
[2021-02-08] MEDS: RIVAROXABAN 15 MG TAB PO SCH (20:05)
[2021-02-09] MEDS: PANTOPRAZOLE 40 MG TABLET PO SCH (09:13)
[2021-02-09] MEDS: lisinopriL 5 MG TAB PO SCH ×2 (10:25→20:01)
--- NOTE | 2021-02-09 11:55 | P.CRDCN ---
History of Present Illness History of present illness: Patient is a pleasant 89 yo female with history of mild dementia, chronic Afib on Xarelto, HLD, HTN, chronic diastolic heart failure, pulmonary hypertension, tricuspid regurgitation, moderate to severe mitral regurgitation, sick sinus syndrome s/p His bundle permanent pacemaker in August 2020, former smoker. She follows in the office with Dr Hidalgo. We are consulted for elevated troponin. Patient presented to the emergency department after she became weak and could not ambulate from her commode. Patient states she is going to use the bathroom and did not have enough strength to stand up from the commode. She states been having increased bilateral lower extremity weakness. Patient denies any chest pain, shortness of breath, lightheadedness, dizziness, syncope, palpitations, sy mptoms of orthopnea or PND. She states she did have a mechanical fall at the end of December requiring stitches of her right esteves. DIAGNOSTICS EKG- Paced rhythm, HR 72, appears to be his bundle paced and also v-paced Echocardiogram- 07/29/2020 in the office which showed EF 55% grade 3 diastolic dysfunction, PFO, moderate to severe MR, moderate TR, RVSP 63. Chest xray-mild pulmonary congestion and cardiomegaly. Pulmonary vascularity increased compared to old exam. Laboratory data, WBC 19.1, sodium 131, potassium 4.6, BUN 15, serum creatinine 1.0, magnesium 1.6, troponin 0.043, CRP 2.4, proBNP 2540, COVID-19 PCR negative Current daily cardiac medications Spironolactone 25 mg daily, Xarelto 50 mg nightly, pravastatin, lisinopril, Lasix 20 mg daily REVIEW OF SYSTEMS At the time of my exam: CONSTITUTIONAL: +weakness Denies fever or chills. CARDIOVASCULAR: Denies chest pain, shortness of breath, no orthopnea, PND or palpitations. RESPIRATORY: Denies cough. GASTROINTESTINAL: Denies abdominal pain, diarrhea, constipation, nausea or vomiting. MUSCULOSKELETAL: Denies myalgias. NEUROLOGIC: Denies numbness, tingling, headacbe or weakness. ENDOCRINE: Denies fatigue, weight change, polydipsia or polyurina. GENITOURINARY: Denies burning, hematuria or urgency with micturation. HEMATOLOGIC: Denies history of anemia or bleeding. PHYSICAL EXAMINATION Vitals reviewed CONSTITUTIONAL: No apparent distress. HEENT: Head is normocephalic. Pupils are equal, round. Mucous membranes of the mouth are dry. No JVD. No carotid bruit. CHEST EXAMINATION: Lungs are clear to auscultation. No chest wall tenderness is noted on palpation or with deep breathing. HEART EXAMINATION: Regular rate and rhythm. S1, S2 heard. + systolic murmur, no gallops or rub. ABDOMEN: Soft, Positive bowel sounds. EXTREMITIES: 2+ peripheral pulses, no LE edema NEUROLOGIC EXAMINATION: No focal deficits noted ASSESSMENT Elevated troponin, 0.04x 3, not indicative of acute coronary syndrome Chronic persistent atrial fibrillation on Xarelto Symptomatic bradycardia, sick sinus syndrome s/p His bundle PPM placement 08/29/20 Acute on chronic diastolic heart failure, appears euvolemic s/p Lasix Moderate to severe mitral regurgitation Essential hypertension Mild dementia Pulmonary hypertension PLAN -Interrogate patient's device, we may have to adjust her thresholds -Orthostatic vital signs -Continue home cardiac medications, Lasix 20mg daily, lisinoril, spironolactone and adjust as needed -Continue Xarelto -Further recommendations based on clinical course Past Medical History Past Medical History: Atrial Fibrillation, Heart Failure, COPD, GERD/Reflux, GI Bleed, Hyperlipidemia, Hypertension Additional Past Medical History / Comment(s): restless leg syndrome History of Any Multi-Drug Resistant Organisms: None Reported Past Surgical History: Appendectomy, Cholecystectomy, Hysterectomy, Joint Replacement, Orthopedic Surgery, Pacemaker Additional Past Surgical History / Comment(s): cataracts removed, bilateral knees Past Anesthesia/Blood Transfusion Reactions: No Reported Reaction Type of Cardiac Device: Biventricular Pacemaker Device Placement Date:: August 2020 Past Psychological History: Anxiety Smoking Status: Former smoker Past Alcohol Use History: None Reported Past Drug Use History: None Reported - Past Family History Father Family Medical History: Coronary Artery Disease (CAD) Additional Family Medical History / Comment(s): rhemuatic fever, at 59 of "bad heart" Mother Family Medical History: Cancer Additional Family Medical History / Comment(s): uterus Medications and Allergies Home Medications Medication Instructions Recorded Confirmed Type LORazepam [Ativan] 0.5 mg PO HS PRN 12/08/14 02/08/21 History Omeprazole [PriLOSEC] 20 mg PO DAILY 12/08/14 02/08/21 History Pravastatin Sodium [Pravachol] 40 mg PO HS 12/08/14 02/08/21 History Rivaroxaban [Xarelto] 15 mg PO HS 12/08/14 02/08/21 History Tiotropium 18 Mcg/Puff [Spiriva] 2 cap INHALATION RT-DAILY 12/08/14 02/08/21 History rOPINIRole HCL [Requip] 1 mg PO HS PRN 12/08/14 02/08/21 History Cyanocobalamin (Vitamin B-12) 1,000 mcg PO DAILY 01/17/19 02/08/21 History [Vitamin B-12] Donepezil HCl [Aricept] 10 mg PO DAILY 01/17/19 02/08/21 History Latanoprost Ophth [Xalatan 0.005%] 1 drop BOTH EYES HS 01/17/19 02/08/21 History Levothyroxine Sodium [Synthroid] 25 mcg PO DAILY 01/17/19 02/08/21 History Spironolactone [Aldactone] 25 mg PO DAILY 01/17/19 02/08/21 History Vit C/E/Zn/Coppr/Lutein/Zeaxan 1 cap PO BID 01/17/19 02/08/21 History [Preservision Areds 2 Softgel] Furosemide [Lasix] 20 mg PO DAILY 08/27/20 02/08/21 History Lisinopril [Prinivil] 10 mg PO DIRECTED@2100 02/08/21 02/08/21 History Psyllium Husk [Metamucil] 0.4 gm PO TID 02/08/21 02/08/21 History Allergies Allergy/AdvReac Type Severity Reaction Status Date / Time Penicillins Allergy Rash/Hives Verified 02/08/21 09:04 sulfamethoxazole Allergy Rash/Hives Verified 02/08/21 09:04 [From Bactrim] trimethoprim [From Bactrim] Allergy Rash/Hives Verified 02/08/21 09:04 Physical Exam Vitals: Vital Signs Temp Pulse Pulse Resp BP BP Pulse Ox 02/09/21 04:00 98.3 F 76 18 135/84 99 02/09/21 02:00 69 18 02/08/21 23:24 98.2 F 69 18 142/69 97 02/08/21 20:00 98.0 F 61 18 151/67 99 02/08/21 16:00 98.1 F 64 18 180/83 99 02/08/21 14:00 64 20 02/08/21 12:05 98.0 F 63 16 148/89 97 02/08/21 09:46 98.3 F 64 20 143/91 100 02/08/21 09:44 82 18 156/68 97 Intake and Output 02/08/21 02/09/21 02/09/21 22:59 06:59 14:59 Intake Total 240 600 Output Total 100 450 Balance 140 150 Intake: Intake, IV Titration 600 Amount Sodium Chloride 0.9% 1, 600 000 ml @ 75 mls/hr IV . [id number] [facility] Rx#:[id number] Oral 240 Output: Urine 100 450 Other: Voiding Method Bedside Commode Bedside Commode Indwelling Catheter Indwelling Catheter # Voids 1 1 # Bowel Movements 1 Weight 82 kg Results 02/08/21 04:51 02/08/21 04:51 Cardiac Enzymes 02/08/21 02/08/21 Range/Units 10:05 13:39 Troponin I 0.049 H* 0.047 H* (0.000-0.034) ng/mL Current Medications Generic Name Dose Route Start Last Admin Trade Name Freq PRN Reason Stop Dose Admin Sodium Chloride 1,000 mls @ 75 mls/hr 02/08/21 08:00 02/08/21 20:14 Saline 0.9% IV 75 mls/hr .[id number] DALILA Administration Lisinopril 10 mg 02/08/21 21:00 Lisinopril 10 Mg Tab PO DIRECTED@2100 DALILA Naloxone HCl 0.2 mg 02/08/21 07:56 Naloxone 0.4 Mg/Ml 1 Ml Vial IV Q2M PRN Opioid Reversal Pantoprazole Sodium 40 mg 02/09/21 09:00 Pantoprazole 40 Mg Tablet PO DAILY DALILA Rivaroxaban 15 mg 02/08/21 21:00 02/08/21 20:05 Rivaroxaban 15 Mg Tab PO 15 mg HS DALILA Administration Protocol Intake and Output 02/08/21 02/09/21 02/09/21 22:59 06:59 14:59 Intake Total 240 600 Output Total 100 450 Balance 140 150 Intake: Intake, IV Titration 600 Amount Sodium Chloride 0.9% 1, 600 000 ml @ 75 mls/hr IV . [id number] DALILA Rx#:[id number] Oral 240 Output: Urine 100 450 Other: Voiding Method Bedside Commode Bedside Commode Indwelling Catheter Indwelling Catheter # Voids 1 1 # Bowel Movements 1 Weight 82 kg 02/08/21 04:51 02/08/21 04:51
[2021-02-09] MEDS: SPIRONOLACTONE 25 MG TAB PO SCH (17:30)
[2021-02-09] MEDS: FUROSEMIDE 20 MG TAB PO SCH (17:30)
[2021-02-09] MEDS ORDERED: LORazepam 0.5 MG TAB PO PRN (17:52)
--- NOTE | 2021-02-09 19:57 | P.HPIM ---
History of Present Illness H&P Date: 02/09/21 This patient is an 89-year-old woman was addmitted after she became to weak to get off of the commode. The patient states that she had gone to use the bathroom and number of hours and once she was there she was not able to get to her feet. She states the weakness is bilateral. She denies any loss of movement. She denies loss sensation. Review of Systems GENERAL: Patient denies fever. Denies chills. EYES: Denies blurred vision. Denies vision changes. Denies eye pain. EARS, NOSE, MOUTH, & THROAT: Denies headache. Denies sore throat. Denies ear pain. RESPIRATORY: Denies cough. Denies shortness of breath. Denies sputum production. Denies hemoptysis. CARDIOVASCULAR: Denies chest pain or pressure. Denies palpitations. Denies arrhythmias. GASTROINTESTINAL: Denies abdominal pain. Denies diarrhea. Denies constipation. Denies nausea. Denies vomiting. Denies heartburn. Denies blood in the stool. GENITOURINARY: Admitsurinary frequency and burning. Denies dysuria. denies hematuria. MUSCULOSKELETAL: Denies myalgias. Denies joint swelling. Denies decreased range of motion beyond patients baseline. INTEGUMENTARY: Denies pruitis. Denies rash. PSYCHIATRIC: Denies suicidal or homicial ideations. ENDOCRINE: Denies weight change. Denies polydipsia. Denies polyuria. HEMATOLOGIC: Denies bleeding disorders. Past Medical History Past Medical History: Atrial Fibrillation, Heart Failure, COPD, GERD/Reflux, GI Bleed, Hyperlipidemia, Hypertension Additional Past Medical History / Comment(s): restless leg syndrome History of Any Multi-Drug Resistant Organisms: None Reported Past Surgical History: Appendectomy, Cholecystectomy, Hysterectomy, Joint Replacement, Orthopedic Surgery, Pacemaker Additional Past Surgical History / Comment(s): cataracts removed, bilateral knees Past Anesthesia/Blood Transfusion Reactions: No Reported Reaction Type of Cardiac Device: Biventricular Pacemaker Device Placement Date:: August 2020 Past Psychological History: Anxiety Smoking Status: Former smoker Past Alcohol Use History: None Reported Past Drug Use History: None Reported - Past Family History Father Family Medical History: Coronary Artery Disease (CAD) Additional Family Medical History / Comment(s): rhemuatic fever, at 59 of "bad heart" Mother Family Medical History: Cancer Additional Family Medical History / Comment(s): uterus Medications and Allergies Home Medications Medication Instructions Recorded Confirmed Type LORazepam [Ativan] 0.5 mg PO HS PRN 12/08/14 02/08/21 History Omeprazole [PriLOSEC] 20 mg PO DAILY 12/08/14 02/08/21 History Pravastatin Sodium [Pravachol] 40 mg PO HS 12/08/14 02/08/21 History Rivaroxaban [Xarelto] 15 mg PO HS 12/08/14 02/08/21 History Tiotropium 18 Mcg/Puff [Spiriva] 2 cap INHALATION RT-DAILY 12/08/14 02/08/21 History rOPINIRole HCL [Requip] 1 mg PO HS PRN 12/08/14 02/08/21 History Cyanocobalamin (Vitamin B-12) 1,000 mcg PO DAILY 01/17/19 02/08/21 History [Vitamin B-12] Donepezil HCl [Aricept] 10 mg PO DAILY 01/17/19 02/08/21 History Latanoprost Ophth [Xalatan 0.005%] 1 drop BOTH EYES HS 01/17/19 02/08/21 History Levothyroxine Sodium [Synthroid] 25 mcg PO DAILY 01/17/19 02/08/21 History Spironolactone [Aldactone] 25 mg PO DAILY 01/17/19 02/08/21 History Vit C/E/Zn/Coppr/Lutein/Zeaxan 1 cap PO BID 01/17/19 02/08/21 History [Preservision Areds 2 Softgel] Furosemide [Lasix] 20 mg PO DAILY 08/27/20 02/08/21 History Lisinopril [Prinivil] 10 mg PO DIRECTED@2100 02/08/21 02/08/21 History Psyllium Husk [Metamucil] 0.4 gm PO TID 02/08/21 02/08/21 History Allergies Allergy/AdvReac Type Severity Reaction Status Date / Time Penicillins Allergy Rash/Hives Verified 02/08/21 09:04 sulfamethoxazole Allergy Rash/Hives Verified 02/08/21 09:04 [From Bactrim] trimethoprim [From Bactrim] Allergy Rash/Hives Verified 02/08/21 09:04 Physical Exam Osteopathic Statement: *. No significant issues noted on an osteopathic structural exam other than those noted in the History and Physical/Consult. Vitals: Vital Signs Temp Pulse Resp BP Pulse Ox 02/09/21 08:00 98.0 F 62 18 104/70 100 02/09/21 04:00 98.3 F 76 18 135/84 99 02/09/21 02:00 69 18 02/08/21 23:24 98.2 F 69 18 142/69 97 02/08/21 20:00 98.0 F 61 18 151/67 99 02/08/21 16:00 98.1 F 64 18 180/83 99 02/08/21 14:00 64 20 Intake and Output 02/08/21 02/09/21 02/09/21 22:59 06:59 14:59 Intake Total 240 600 240 Output Total 100 450 Balance 140 150 240 Intake: Intake, IV Titration 600 Amount Sodium Chloride 0.9% 1, 600 000 ml @ 75 mls/hr IV . [id number] [facility] Rx#:[id number] Oral 240 240 Output: Urine 100 450 Other: Voiding Method Bedside Commode Bedside Commode Bedside Commode Indwelling Catheter Indwelling Catheter Indwelling Catheter # Voids 1 1 # Bowel Movements 1 Weight 82 kg GENERAL: This is a -89 year-old in no apparent distress at the time of examination. Pleasant and cooperative. HEENT: Head is atraumatic, normocephalic. Pupils are equal, round, and reactive to light. Sclerae anicteric. Conjunctivae are clear. Mucus membranes of the mouth are moist. Neck is supple. RESPIRATORY: Clear to auscultation. No wheezes, rales, or rhonchi. No use of accessory muscles. Patient maintaining oxygen saturation greater than 92%. No chest wall tenderness is noted on palpation or with deep breathing. CARDIOVASCULAR: Irregular rate and rhythm. S1 and S2 noted. No JVD noted. GASTROINTESTINAL: No distention noted. Abdomen soft and round. Normal active bowel sounds auscultated x 4 quadrants. No pain or tenderness noted upon palpation. INTEGUMENTARY: No cyanosis. No jaundice. No rashes noted. No cellulitis noted. EXTREMITIES: 2+ peripheral pulses. No evidence of peripheral edema. No calf tenderness noted. NEUROLOGIC: Cranial nerves II-XII intact. Moving all extremities X 4. PSYCHIATRIC: Awake, alert, and oriented X 3. Appropriate affect. Results CBC & Chem 7: 02/08/21 04:51 02/08/21 04:51 Labs: Abnormal Lab Results - Last 24 Hours (Table) 02/08/21 Range/Units 13:39 Troponin I 0.047 H* (0.000-0.034) ng/mL Microbiology - Last 24 Hours (Table) 02/08/21 04:51 Urine Culture - Preliminary Urine,Voided Assessment and Plan (1) Sepsis due to gram-negative urinary tract infection Current Visit: Yes Status: Acute Code(s): A41.50 - GRAM-NEGATIVE SEPSIS, UNSPECIFIED; N39.0 - URINARY TRACT INFECTION, SITE NOT SPECIFIED SNOMED Code(s): 139994483 (2) Elevated troponin Current Visit: Yes Status: Acute Code(s): R77.8 - OTHER SPECIFIED ABNORMALITIES OF PLASMA PROTEINS SNOMED Code(s): 385125389 (3) Weakness Current Visit: Yes Status: Acute Code(s): R53.1 - WEAKNESS SNOMED Code(s): 32867839 (4) Atrial fibrillation with slow ventricular response Current Visit: No Status: Acute Code(s): I48.91 - UNSPECIFIED ATRIAL FIBRILLATION SNOMED Code(s): 12494767 (5) Dehydration Current Visit: No Status: Acute Code(s): E86.0 - DEHYDRATION SNOMED Code(s): 18306428 (6) Dyspnea Current Visit: No Status: Acute Code(s): R06.00 - DYSPNEA, UNSPECIFIED SNOMED Code(s): 361493369 (7) HTN (hypertension) Current Visit: No Status: Acute Code(s): I10 - ESSENTIAL (PRIMARY) HYPERTENSION SNOMED Code(s): 96089347 Plan: Patient will be admitted to the hospital on IV antibiotics loss of cardiology see patient regarding pacemaker interrogation and evaluation of elevated troponin patient is comfortable without any distress at this time we'll continue her home medications will also ask social media designer to start discharge planning and we should consult physical therapy due to advance age.
[2021-02-09] MEDS: LATANOPROST 0.005% OPHTH DROPS 2.5 ML BTL BOTH EYES SCH (20:01)
[2021-02-09] MEDS: RIVAROXABAN 15 MG TAB PO SCH (20:01)
[2021-02-09] MEDS: PRAVASTATIN SODIUM 40 MG TAB PO SCH (20:01)
[2021-02-09] MEDS: PSYLLIUM HUSK 100% 6 GM PACKET PO SCH (20:02)
[2021-02-09] MEDS: ACETAMINOPHEN TAB 325 MG TAB PO PRN (20:02)
[2021-02-09] MEDS: VIT A,C & E-LUTEIN-MINERALS 1 EACH TAB PO SCH ×2 (20:03→20:48)
[2021-02-10] MEDS: LEVOTHYROXINE 25 MCG TAB PO SCH (06:40)
[2021-02-10] MEDS: IPRATROPIUM 0.5 MG/2.5 ML NEBU INHALATION SCH ×4 (07:28→19:24)
[2021-02-10 08:21] LABS: HCT 37.7 % (34.0-46.0); HGB 12.1 gm/dL (11.4-16.0); MCH 29.9 pg (25.0-35.0); MCHC 32.2 g/dL (31.0-37.0); MCV 92.9 fL (80.0-100.0); Mean Platelet Volume 7.8; Platelet Count 162 k/uL (150-450); RBC 4.05 m/uL (3.80-5.40); RDW 12.1 % (11.5-15.5); WBC 4.6 k/uL (3.8-10.6)
[2021-02-10 08:46] LABS: Calcium 9.2 mg/dL (8.4-10.2); Potassium 4.2 mmol/L (3.5-5.1)
[2021-02-10] MEDS: PSYLLIUM HUSK 100% 6 GM PACKET PO SCH ×4 (09:06→20:12)
[2021-02-10] MEDS: PANTOPRAZOLE 40 MG TABLET PO SCH (09:07)
[2021-02-10] MEDS: VIT A,C & E-LUTEIN-MINERALS 1 EACH TAB PO SCH ×2 (09:07→20:12)
[2021-02-10] MEDS: SPIRONOLACTONE 25 MG TAB PO SCH (09:07)
[2021-02-10] MEDS: CYANOCOBALAMIN 500 MCG TAB PO SCH (09:07)
[2021-02-10] MEDS: FUROSEMIDE 20 MG TAB PO SCH (09:07)
[2021-02-10] MEDS: DONEPEZIL 10 MG TAB PO SCH (09:07)
--- NOTE | 2021-02-10 14:05 | P.PN ---
Subjective Progress Note Date: 02/10/21 HISTORY OF PRESENT ILLNESS: Patient is a pleasant 89 yo female with history of mild dementia, chronic Afib on Xarelto, HLD, HTN, chronic diastolic heart failure, pulmonary hypertension, tricuspid regurgitation, moderate to severe mitral regurgitation, sick sinus syndrome s/p His bundle permanent pacemaker in August 2020, former smoker. She follows in the office with Dr Hidalgo. We are consulted for elevated troponin. Patient presented to the emergency department after she became weak and could not ambulate from her commode. Patient states she is going to use the bathroom and did not have enough strength to stand up from the commode. She states been having increased bilateral lower extremity weakness. Patient denies any chest pain, shortness of breath, lightheadedness, dizziness, syncope, palpitations, symptoms of orthopnea or PND. She states she did have a mechanical fall at the end of December requiring stitches of her right esteves. DIAGNOSTICS EKG- Paced rhythm, HR 72, appears to be his bundle paced and also v-paced Echocardiogram- 07/29/2020 in the office which showed EF 55% grade 3 diastolic dysfunction, PFO, moderate to severe MR, moderate TR, RVSP 63. Chest xray-mild pulmonary congestion and cardiomegaly. Pulmonary vascularity increased compared to old exam. Laboratory data, WBC 19.1, sodium 131, potassium 4.6, BUN 15, serum creatinine 1.0, magnesium 1.6, troponin 0.043, CRP 2.4, proBNP 2540, COVID-19 PCR negative Current daily cardiac medications Spironolactone 25 mg daily, Xarelto 50 mg nightly, pravastatin, lisinopril, Lasix 20 mg daily 02/10/2021 Patient examined this morning at the bedside. Patient denies chest pain or pressure. She denies shortness of breath. Vital signs are stable. PHYSICAL EXAM: VITAL SIGNS: Reviewed. GENERAL: Well-developed in no acute distress. NECK: Supple. No JVD or thyromegaly LUNGS: Respirations even and unlabored. Lungs essentially clear to auscultation bilaterally. HEART: Regular rate and rhythm. S1 and S2 heard. Systolic murmur noted. EXTREMITIES: Normal range of motion. No clubbing or cyanosis. Peripheral pulses intact. No lower extremity edema ASSESSMENT: Elevated troponin, 0.04x 3, not indicative of acute coronary syndrome Chronic persistent atrial fibrillation on Xarelto Symptomatic bradycardia, sick sinus syndrome s/p His bundle PPM placement 08/29/20 Acute on chronic diastolic heart failure, appears euvolemic s/p Lasix Moderate to severe mitral regurgitation Essential hypertension Mild dementia Pulmonary hypertension PLAN: Patient's pacemaker was interrogated yesterday. No adjustments to be made by Dr. Jefferson Continue current cardiac medications Patient is stable from a cardiac perspective We will sign off. Please reconsult if needed. Nurse practitioner note has been reviewed by physician. Signing provider agrees with the documented findings, assessment, and plan of care. Objective - Vital Signs Vital signs: Vital Signs Temp 98 F 02/10/21 12:00 Pulse 59 L 02/10/21 12:00 Resp 20 02/10/21 12:00 BP 150/85 02/10/21 12:00 Pulse Ox 100 02/10/21 12:00 Intake & Output 02/09/21 02/10/21 02/10/21 18:59 06:59 18:59 Intake Total 720 358 Output Total 300 635700 400 Balance 420 -708936 -42 Weight 83 kg Intake: Oral 720 358 Output: Urine 300 1270 400 Post Void Residual [id number] Other: Voiding Method Bedside Commode Indwelling Catheter # Voids 3 - Labs CBC & Chem 7: 02/10/21 07:41 02/10/21 07:41 Labs: Abnormal Lab Results - Last 24 Hours (Table) 02/10/21 Range/Units 07:41 Sodium 136 L (137-145) mmol/L Microbiology - Last 24 Hours (Table) 02/08/21 04:51 Urine Culture - Final Urine,Voided Escherichia coli
[2021-02-10] MEDS: ACETAMINOPHEN TAB 325 MG TAB PO PRN (18:07)
[2021-02-10] MEDS: lisinopriL 5 MG TAB PO SCH (20:12)
[2021-02-10] MEDS: LATANOPROST 0.005% OPHTH DROPS 2.5 ML BTL BOTH EYES SCH (20:12)
[2021-02-10] MEDS: RIVAROXABAN 15 MG TAB PO SCH (20:12)
[2021-02-10] MEDS: PRAVASTATIN SODIUM 40 MG TAB PO SCH (20:12)
--- NOTE | 2021-02-10 22:46 | P.PN ---
Subjective Progress Note Date: 02/10/21 Patient seen today doing better. She denies any shortness of breath or chest pain and she states she was up with a walker without any falls denies any fever. Objective - Vital Signs Vital signs: Vital Signs Temp 97.8 F 02/10/21 20:00 Pulse 62 02/10/21 20:00 Resp 18 02/10/21 20:00 BP 125/70 02/10/21 20:00 Pulse Ox 99 02/10/21 20:00 Intake & Output 02/10/21 02/10/21 02/11/21 06:59 18:59 06:59 Intake Total 766 Output Total 406946 700 650 Balance - 66 -650 Weight 83 kg Intake: Intake, IV Titration 50 Amount cefTRIAXone 1 gm In 50 Sodium Chloride 0.9% 50 ml @ 100 mls/hr IVPB Q24HR [facility] Rx#:[id number] Oral 716 Output: Urine 1270 700 650 Post Void Residual Other: # Voids 3 1 - Exam GENERAL: This is a -89 year-old in no apparent distress at the time of examination. Pleasant and cooperative. HEENT: Head is atraumatic, normocephalic. Pupils are equal, round, and reactive to light. Sclerae anicteric. Conjunctivae are clear. Mucus membranes of the mouth are moist. Neck is supple. RESPIRATORY: Clear to auscultation. No wheezes, rales, or rhonchi. No use of accessory muscles. Patient maintaining oxygen saturation greater than 92%. No chest wall tenderness is noted on palpation or with deep breathing. CARDIOVASCULAR: Irregular rate and rhythm. S1 and S2 noted. No JVD noted. GASTROINTESTINAL: No distention noted. Abdomen soft and round. Normal active bowel sounds auscultated x 4 quadrants. No pain or tenderness noted upon palpation. INTEGUMENTARY: No cyanosis. No jaundice. No rashes noted. No cellulitis noted. EXTREMITIES: 2+ peripheral pulses. No evidence of peripheral edema. No calf tenderness noted. NEUROLOGIC: Cranial nerves II-XII intact. Moving all extremities X 4. PSYCHIATRIC: Awake, alert, and oriented X 3. Appropriate affect. - Labs CBC & Chem 7: 02/10/21 07:41 02/10/21 07:41 Labs: Abnormal Lab Results - Last 24 Hours (Table) 02/10/21 Range/Units 07:41 Sodium 136 L (137-145) mmol/L Microbiology - Last 24 Hours (Table) 02/08/21 04:51 Urine Culture - Final Urine,Voided Escherichia coli Assessment and Plan (1) Sepsis due to gram-negative urinary tract infection Current Visit: Yes Status: Acute Code(s): A41.50 - GRAM-NEGATIVE SEPSIS, UNSPECIFIED; N39.0 - URINARY TRACT INFECTION, SITE NOT SPECIFIED SNOMED Code(s): 396001281 (2) Elevated troponin Current Visit: Yes Status: Acute Code(s): R77.8 - OTHER SPECIFIED ABNORMALITIES OF PLASMA PROTEINS SNOMED Code(s): 269549244 (3) Weakness Current Visit: Yes Status: Acute Code(s): R53.1 - WEAKNESS SNOMED Code(s): 99438848 (4) Atrial fibrillation with slow ventricular response Current Visit: No Status: Acute Code(s): I48.91 - UNSPECIFIED ATRIAL F IBRILLATION SNOMED Code(s): 69695034 (5) Dehydration Current Visit: No Status: Acute Code(s): E86.0 - DEHYDRATION SNOMED Code(s): 76364424 (6) Dyspnea Current Visit: No Status: Acute Code(s): R06.00 - DYSPNEA, UNSPECIFIED SNOMED Code(s): 612482339 (7) HTN (hypertension) Current Visit: No Status: Acute Code(s): I10 - ESSENTIAL (PRIMARY) HYPERTENSION SNOMED Code(s): 99578410 (8) Leukocytosis Current Visit: Yes Status: Acute Code(s): D72.829 - ELEVATED WHITE BLOOD CELL COUNT, UNSPECIFIED SNOMED Code(s): 422715719 Plan: Plan is to continue IV hydration, antibiotics and physical therapy. Pt wishes to go home if stable..
[2021-02-11] MEDS: LEVOTHYROXINE 25 MCG TAB PO SCH (06:49)
[2021-02-11] MEDS: PSYLLIUM HUSK 100% 6 GM PACKET PO SCH ×3 (08:21→20:35)
[2021-02-11] MEDS: VIT A,C & E-LUTEIN-MINERALS 1 EACH TAB PO SCH ×2 (08:23→21:03)
[2021-02-11] MEDS: DONEPEZIL 10 MG TAB PO SCH (08:23)
[2021-02-11] MEDS: FUROSEMIDE 20 MG TAB PO SCH (08:23)
[2021-02-11] MEDS: CYANOCOBALAMIN 500 MCG TAB PO SCH (08:23)
[2021-02-11] MEDS: PANTOPRAZOLE 40 MG TABLET PO SCH (08:23)
[2021-02-11] MEDS: SPIRONOLACTONE 25 MG TAB PO SCH (08:23)
[2021-02-11] MEDS: IPRATROPIUM 0.5 MG/2.5 ML NEBU INHALATION SCH ×4 (08:46→20:29)
--- NOTE | 2021-02-11 14:30 | P.PN ---
Subjective Progress Note Date: 02/11/21 Priya a better day she is up at the bedside ambulating with the nurse she is using bedside commode and her appetite is better Objective - Vital Signs Vital signs: Vital Signs Temp 97.8 F 02/11/21 11:40 Pulse 70 02/11/21 12:16 Resp 18 02/11/21 13:02 BP 137/80 02/11/21 11:40 Pulse Ox 97 02/11/21 11:40 Intake & Output 02/10/21 02/11/21 02/11/21 18:59 06:59 18:59 Intake Total 766 240 Output Total 700 1750 400 Balance 66 -1750 -160 Weight 81 kg Intake: Intake, IV Titration 50 Amount cefTRIAXone 1 gm In 50 Sodium Chloride 0.9% 50 ml @ 100 mls/hr IVPB Q24HR [facility] Rx#:[id number] Oral 716 240 Output: Urine 700 1750 400 Other: Voiding Method Bedside Commode # Voids 1 - Exam GENERAL: This is a -89 year-old in no apparent distress at the time of examination. Pleasant and cooperative. HEENT: Head is atraumatic, normocephalic. Pupils are equal, round, and reactive to light. Sclerae anicteric. Conjunctivae are clear. Mucus membranes of the mouth are moist. Neck is supple. RESPIRATORY: Clear to auscultation. No wheezes, rales, or rhonchi. No use of accessory muscles. Patient maintaining oxygen saturation greater than 92%. No chest wall tenderness is noted on palpation or with deep breathing. CARDIOVASCULAR: Irregular rate and rhythm. S1 and S2 noted. No JVD noted. GASTROINTESTINAL: No distention noted. Abdomen soft and round. Normal active bowel sounds auscultated x 4 quadrants. No pain or tenderness noted upon palpation. INTEGUMENTARY: No cyanosis. No jaundice. No rashes noted. No cellulitis noted. EXTREMITIES: 2+ peripheral pulses. No evidence of peripheral edema. No calf tenderness noted. NEUROLOGIC: Cranial nerves II-XII intact. Moving all extremities X 4. PSYCHIATRIC: Awake, alert, and oriented X 3. Appropriate affect. - Labs CBC & Chem 7: 02/10/21 07:41 02/10/21 07:41 Labs: Microbiology - Last 24 Hours (Table) 02/08/21 04:51 Urine Culture - Final Urine,Voided Escherichia coli Assessment and Plan (1) Sepsis due to gram-negative urinary tract infection Current Visit: Yes Status: Acute Code(s): A41.50 - GRAM-NEGATIVE SEPSIS, UNSPECIFIED; N39.0 - URINARY TRACT INFECTION, SITE NOT SPECIFIED SNOMED Code(s): 476015827 (2) Elevated troponin Current Visit: Yes Status: Acute Code(s): R77.8 - OTHER SPECIFIED ABNORMALITIES OF PLASMA PROTEINS SNOMED Code(s): 390017612 (3) Weakness Current Visit: Yes Status: Acute Code(s): R53.1 - WEAKNESS SNOMED Code(s): 75557838 (4) Atrial fibrillation with slow ventricular response Current Visit: No Status: Acute Code(s): I48.91 - UNSPECIFIED ATRIAL FIBRILLATION SNOMED Code(s): 55105257 (5) Dehydration Current Visit: No Status: Acute Code(s): E86.0 - DEHYDRATION SNOMED Code(s): 96292158 (6) Dyspnea Current Visit: No Status: Acute Code(s): R06.00 - DYSPNEA, UNSPECIFIED SNOMED Code(s): 300536300 (7) HTN (hypertension) Current Visit: No Status: Acute Code(s): I10 - ESSENTIAL (PRIMARY) HYPERTENSION SNOMED Code(s): 07853947 (8) Leukocytosis Current Visit: Yes Status: Acute Code(s): D72.829 - ELEVATED WHITE BLOOD CELL COUNT, UNSPECIFIED SNOMED Code(s): 074859995 Plan: Continue IV antibiotics continue hydration continue physical therapy patient would like to return home with help from her family.
[2021-02-11] MEDS: LATANOPROST 0.005% OPHTH DROPS 2.5 ML BTL BOTH EYES SCH (20:34)
[2021-02-11] MEDS: lisinopriL 5 MG TAB PO SCH (20:34)
[2021-02-11] MEDS: RIVAROXABAN 15 MG TAB PO SCH (20:34)
[2021-02-11] MEDS: PRAVASTATIN SODIUM 40 MG TAB PO SCH (20:34)
[2021-02-11 23:36] VITALS: RESP 18
[2021-02-12] MEDS: LEVOTHYROXINE 25 MCG TAB PO SCH (06:33)
[2021-02-12 06:51] LABS: Glucose,Whole Blood 97 mg/dL (75-99)
[2021-02-12] MEDS: IPRATROPIUM 0.5 MG/2.5 ML NEBU INHALATION SCH ×2 (08:21→11:54)
[2021-02-12] MEDS: SPIRONOLACTONE 25 MG TAB PO SCH (08:35)
[2021-02-12] MEDS: DONEPEZIL 10 MG TAB PO SCH (08:35)
[2021-02-12] MEDS: PSYLLIUM HUSK 100% 6 GM PACKET PO SCH (08:35)
[2021-02-12] MEDS: FUROSEMIDE 20 MG TAB PO SCH (08:35)
[2021-02-12] MEDS: VIT A,C & E-LUTEIN-MINERALS 1 EACH TAB PO SCH (08:36)
[2021-02-12] MEDS: CYANOCOBALAMIN 500 MCG TAB PO SCH (08:36)
[2021-02-12] MEDS: PANTOPRAZOLE 40 MG TABLET PO SCH (08:36)
[2021-02-12 11:45] VITALS: BP 156/70; TEMP 98
[2021-02-12 12:05] VITALS: PULSE 60
--- NOTE | 2021-02-12 18:50 | P.DS ---
Providers Date of admission: 02/08/21 07:56 Expected date of discharge: 02/12/21 Attending physician: Saurabh Ma Primary care physician: Saurabh Ma - Discharge Diagnosis(es) (1) Sepsis due to gram-negative urinary tract infection Status: Acute (2) Elevated troponin Status: Acute (3) Weakness Status: Acute (4) Atrial fibrillation with slow ventricular response Status: Acute (5) Dehydration Status: Acute (6) Dyspnea Status: Acute (7) HTN (hypertension) Status: Acute (8) Leukocytosis Status: Acute Hospital Course: Patient is pleasant 89-year-old white was admitted for urinary tract sepsis. She was positive for E. coli which left her very weak and unable to ambulate. Physical therapy was consulted and patient was placed on IV antibiotics with hydration doing well and she was cleared by physical therapy to return to home in they did not recommend inpatient rehabilitation. Patient Condition at Discharge: Fair Plan - Discharge Summary Discharge Rx Participant: Yes New Discharge Prescriptions: New Ciprofloxacin HCl [Cipro] 250 mg PO BID 7 Days #14 tab Continue LORazepam [Ativan] 0.5 mg PO HS PRN PRN Reason: rls rOPINIRole HCL [Requip] 1 mg PO HS PRN PRN Reason: RLS Rivaroxaban [Xarelto] 15 mg PO HS Pravastatin Sodium [Pravachol] 40 mg PO HS Omeprazole [PriLOSEC] 20 mg PO DAILY Tiotropium 18 Mcg/Puff [Spiriva] 2 cap INHALATION RT-DAILY Latanoprost Ophth [Xalatan 0.005%] 1 drop BOTH EYES HS Spironolactone [Aldactone] 25 mg PO DAILY Levothyroxine Sodium [Synthroid] 25 mcg PO DAILY Donepezil HCl [Aricept] 10 mg PO DAILY Cyanocobalamin (Vitamin B-12) [Vitamin B-12] 1,000 mcg PO DAILY Vit C/E/Zn/Coppr/Lutein/Zeaxan [Preservision Areds 2 Softgel] 1 cap PO BID Furosemide [Lasix] 20 mg PO DAILY Lisinopril [Prinivil] 10 mg PO DIRECTED@2100 Psyllium Husk [Metamucil] 0.4 gm PO TID Discharge Medication List LORazepam [Ativan] 0.5 mg PO HS PRN 12/08/14 [History] Omeprazole [PriLOSEC] 20 mg PO DAILY 12/08/14 [History] Pravastatin Sodium [Pravachol] 40 mg PO HS 12/08/14 [History] Rivaroxaban [Xarelto] 15 mg PO HS 12/08/14 [History] Tiotropium 18 Mcg/Puff [Spiriva] 2 cap INHALATION RT-DAILY 12/08/14 [History] rOPINIRole HCL [Requip] 1 mg PO HS PRN 12/08/14 [History] Cyanocobalamin (Vitamin B-12) [Vitamin B-12] 1,000 mcg PO DAILY 01/17/19 [History] Donepezil HCl [Aricept] 10 mg PO DAILY 01/17/19 [History] Latanoprost Ophth [Xalatan 0.005%] 1 drop BOTH EYES HS 01/17/19 [History] Levothyroxine Sodium [Synthroid] 25 mcg PO DAILY 01/17/19 [History] Spironolactone [Aldactone] 25 mg PO DAILY 01/17/19 [History] Vit C/E/Zn/Coppr/Lutein/Zeaxan [Preservision Areds 2 Softgel] 1 cap PO BID 01/17/19 [History] Furosemide [Lasix] 20 mg PO DAILY 08/27/20 [History] Lisinopril [Prinivil] 10 mg PO DIRECTED@2100 02/08/21 [History] Psyllium Husk [Metamucil] 0.4 gm PO TID 02/08/21 [History] Ciprofloxacin HCl [Cipro] 250 mg PO BID 7 Days #14 tab 02/12/21 [Rx] Follow up Appointment(s)/Referral(s): Deepak Hidalgo DO [STAFF PHYSICIAN] - 02/26/21 2:30 pm () Saurabh Ma DO [Primary Care Provider] - 02/16/21 11:30 am (Tuesday WITH JOSE MIGUEL MANAGER TRANSPORTATION PLANNING) Discharge Disposition: HOME WITH HOME HEALTH SERVICES
== END 2021-02-12 15:43 | disposition home health service (06) ==
LOC: EC 03:45 → 3SCARD 07:56 → INTOOBSV 07:56 → 3SCARD 11:54 → UNDODISIN 02-12 15:43
PROVIDERS: ADMIT Family Medicine; ATTEND Family Medicine
DX: A41.50 Gram-negative sepsis, unspecified (principal); N39.0 Urinary tract infection, site not specified; B96.20 Unspecified Escherichia coli [E. coli] as the cause of diseases classified elsewhere; I11.0 Hypertensive heart disease with heart failure; I50.33 Acute on chronic diastolic (congestive) heart failure; E86.0 Dehydration; Q21.1 Atrial septal defect; I48.19 Other persistent atrial fibrillation; I49.5 Sick sinus syndrome; I27.20 Pulmonary hypertension, unspecified; I08.1 Rheumatic disorders of both mitral and tricuspid valves; K21.9 Gastro-esophageal reflux disease without esophagitis; J44.9 Chronic obstructive pulmonary disease, unspecified; F03.90 Unspecified dementia, unspecified severity, without behavioral disturbance, psychotic disturbance, mood disturbance, and anxiety; E78.5 Hyperlipidemia, unspecified; G25.81 Restless legs syndrome; R79.89 Other specified abnormal findings of blood chemistry; F41.9 Anxiety disorder, unspecified; Z20.822 Contact with and (suspected) exposure to COVID-19; Z79.01 Long term (current) use of anticoagulants; Z79.890 Hormone replacement therapy; Z79.899 Other long term (current) drug therapy; Z88.0 Allergy status to penicillin; Z88.1 Allergy status to other antibiotic agents; Z88.2 Allergy status to sulfonamides; Z95.0 Presence of cardiac pacemaker; Z87.19 Personal history of other diseases of the digestive system; Z90.710 Acquired absence of both cervix and uterus; Z87.891 Personal history of nicotine dependence; Z90.49 Acquired absence of other specified parts of digestive tract; Z98.49 Cataract extraction status, unspecified eye; Z91.81 History of falling; Z96.653 Presence of artificial knee joint, bilateral; Z82.49 Family history of ischemic heart disease and other diseases of the circulatory system; Z80.49 Family history of malignant neoplasm of other genital organs
CPT/HCPCS: 96361 ×3; 96366 ×3; 96365; 99285; 36415; 94640 ×6; 93005; 97161; 83880; 80053; 80048; 83605; 83735; 84100; 84484; 85025; 85027; 86140; 81001; 87086; 87077; 87186; 87635; 71045; G0378 ×5; J0696 ×4

== ENCOUNTER 2021-03-07 00:12 | Observation (INO) | payer MEDICARE ==
[2021-03-07] MEDS ORDERED: HYDROcodone/APAP 5-325MG 1 EACH TAB PO STA (00:31)
--- NOTE | 2021-03-07 00:36 | ED ---
Extremity Problem HPI - General Chief complaint: Extremity Problem,Nontraumatic Stated complaint: Left arm swelling Time Seen by Provider: 03/07/21 00:13 Source: patient, EMS, RN notes reviewed, old records reviewed Mode of arrival: EMS Limitations: no limitations - History of Present Illness Initial comments: This is an 89-year-old female to the ER today. She presents today for evaluation of left upper extremity pain and swelling. Patient states she has no prior history of similar complaint. States symptoms began suddenly just prior to arrival. Patient is able to move arm move her entire arm has no trauma has no other complaints. No shortness of breath or chest pain MD Complaint: extremity pain, extremity swelling -: hour(s) Location: left, upper extremity History of Same: Yes Radiation: proximal Severity scale (1-10): 7 Quality: aching Consistency: constant Improves with: nothing Worsens with: nothing Associated Symptoms: denies other symptoms - Related Data Home Medications Medication Instructions Recorded Confirmed LORazepam [Ativan] 0.5 mg PO HS PRN 12/08/14 02/08/21 Omeprazole [PriLOSEC] 20 mg PO DAILY 12/08/14 02/08/21 Pravastatin Sodium [Pravachol] 40 mg PO HS 12/08/14 02/08/21 Rivaroxaban [Xarelto] 15 mg PO HS 12/08/14 02/08/21 Tiotropium 18 Mcg/Puff [Spiriva] 2 cap INHALATION RT-DAILY 12/08/14 02/08/21 rOPINIRole HCL [Requip] 1 mg PO HS PRN 12/08/14 02/08/21 Cyanocobalamin (Vitamin B-12) 1,000 mcg PO DAILY 01/17/19 02/08/21 [Vitamin B-12] Donepezil HCl [Aricept] 10 mg PO DAILY 01/17/19 02/08/21 Latanoprost Ophth [Xalatan 0.005%] 1 drop BOTH EYES HS 01/17/19 02/08/21 Levothyroxine Sodium [Synthroid] 25 mcg PO DAILY 01/17/19 02/08/21 Spironolactone [Aldactone] 25 mg PO DAILY 01/17/19 02/08/21 Vit C/E/Zn/Coppr/Lutein/Zeaxan 1 cap PO BID 01/17/19 02/08/21 [Preservision Areds 2 Softgel] Furosemide [Lasix] 20 mg PO DAILY 08/27/20 02/08/21 Lisinopril [Prinivil] 10 mg PO DIRECTED@2100 02/08/21 02/08/21 Psyllium Husk [Metamucil] 0.4 gm PO TID 02/08/21 02/08/21 Previous Rx's Medication Instructions Recorded Ciprofloxacin HCl [Cipro] 250 mg PO BID 7 Days #14 tab 02/12/21 Allergies Allergy/AdvReac Type Severity Reaction Status Date / Time Penicillins Allergy Rash/Hives Verified 02/08/21 09:04 sulfamethoxazole Allergy Rash/Hives Verified 02/08/21 09:04 [From Bactrim] trimethoprim [From Bactrim] Allergy Rash/Hives Verified 02/08/21 09:04 Review of Systems ROS Statement: Those systems with pertinent positive or pertinent negative responses have been documented in the HPI. ROS Other: All systems not noted in ROS Statement are negative. Past Medical History Past Medical History: Atrial Fibrillation, Heart Failure, COPD, GERD/Reflux, GI Bleed, Hyperlipidemia, Hypertension Additional Past Medical History / Comment(s): restless leg syndrome History of Any Multi-Drug Resistant Organisms: None Reported Past Surgical History: Appendectomy, Cholecystectomy, Hysterectomy, Joint Replacement, Orthopedic Surgery Additional Past Surgical History / Comment(s): cataracts removed, bilateral knees Past Anesthesia/Blood Transfusion Reactions: No Reported Reaction Type of Cardiac Device: Biventricular Pacemaker Device Placement Date:: August 2020 Past Psychological History: Anxiety Smoking Status: Former smoker Past Alcohol Use History: None Reported Past Drug Use History: None Reported - Past Family History Father Family Medical History: Coronary Artery Disease (CAD) Additional Family Medical History / Comment(s): rhemuatic fever, at 59 of "bad heart" Mother Family Medical History: Cancer Additional Family Medical History / Comment(s): uterus General Exam - General Exam Comments Initial Comments: Good pulses left upper extremity Limitations: no limitations General appearance: alert, in no apparent distress Head exam: Present: atraumatic, normocephalic, normal inspection Eye exam: Present: normal appearance, PERRL, EOMI. Absent: scleral icterus, conjunctival injection, periorbital swelling ENT exam: Present: normal exam, mucous membranes moist Neck exam: Present: normal inspection. Absent: tenderness, meningismus, lymphadenopathy Respiratory exam: Present: normal lung sounds bilaterally. Absent: respiratory distress, wheezes, rales, rhonchi, stridor Cardiovascular Exam: Present: regular rate, normal rhythm, normal heart sounds. Absent: systolic murmur, diastolic murmur, rubs, gallop, clicks GI/Abdominal exam: Present: soft, normal bowel sounds. Absent: distended, tenderness, guarding, rebound, rigid Extremities exam: Present: normal inspection, full ROM, normal capillary refill. Absent: tenderness, pedal edema, joint swelling, calf tenderness Back exam: Present: normal inspection Neurological exam: Present: alert, oriented X3, CN II-XII intact Psychiatric exam: Present: normal affect, normal mood Skin exam: Present: warm, dry, intact, normal color. Absent: rash Course Vital Signs 03/07/21 00:24 Temperature 97.8 F Pulse Rate 62 Respiratory 17 Rate Blood Pressure 115/78 O2 Sat by Pulse 96 Oximetry - Reevaluation(s) Reevaluation #1: 03/07/21 02:16 Medical record is reviewed Reevaluation #2: 03/07/21 02:16 Patient is informed of results and questions are answered Reevaluation #3: 03/07/21 02:16 Patient will be admitted for anticoagulation - Consultations Consultation #1: Spoke with [facility] were agreed to admit this patient Medical Decision Making - Medical Decision Making 89 female to the emergency department with left upper Shorty pain and swelling patient does have positive DVT left subclavian, patient be admitted for anticoagulation and further evaluation and treatment - Radiology Data Radiology results: report reviewed (She left upper extremity ultrasound left upper trauma is positive for subclavian vein DVT), image reviewed Disposition Clinical Impression: Subclavian vein thrombosis, left Disposition: ADMITTED IP TO THIS [facility] Condition: Fair Is patient prescribed a controlled substance at d/c from ED?: No Referrals: Saurabh Ma DO [Primary Care Provider] - 1-2 days
--- NOTE | 2021-03-07 00:55 | XR ---
EXAMINATION TYPE: XR forearm LT DATE OF EXAM: 03/07/2021 COMPARISON: NONE HISTORY: Pain and swelling TECHNIQUE: 3 views FINDINGS: There is soft tissue swelling of the forearm. There is deformity of the distal radius relat ed to old healed fracture. 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 Elbow joint is intact. IMPRESSION: Old distal radius fracture. No acute fracture. Soft tissue swelling.
--- NOTE | 2021-03-07 00:56 | XR ---
EXAMINATION TYPE: XR humerus LT DATE OF EXAM: 03/07/2021 COMPARISON: NONE HISTORY: Swelling and pain TECHNIQUE: 2 views FINDINGS: Shoulder joint and elbow joint appear intact. I see no fracture nor dislocation. IMPRESSION: Negative left humerus exam.
--- NOTE | 2021-03-07 02:00 | US ---
EXAMINATION TYPE: US venous doppler duplex UE LT DATE OF EXAM: 03/07/2021 COMPARISON: NONE CLINICAL HISTORY: pain. Left arm swelling and discoloration. Poor historian. SIDE PERFORMED: Left Left Arm: Positive for DVT in medial subclavial vein. IVC appear small in size. Prominent rouleaux flow visualized in mid/lat subclavian vein and basilic vein. Basilic vein was difficult to compress d ue to patient tolerance but wall to wall color flow was visualized. IMPRESSION: There is some limited deep vein thrombosis involving the subclavian vein. Thrombus appears acute.
[2021-03-07] MEDS ORDERED: MORPHINE SULFATE 4 MG/ML SYRINGE IV PRN (02:08)
[2021-03-07] MEDS ORDERED: SODIUM CHLORIDE 0.9% 500 ML 500 ML IV STA (02:08)
[2021-03-07] MEDS ORDERED: NALOXONE 0.4 MG/ML 1 ML VIAL IV PRN (02:08)
[2021-03-07] MEDS ORDERED: HEPARIN SODIUM 1,000 UN/ML (10ML VL) IV ONE (02:08)
[2021-03-07] MEDS ORDERED: ONDANSETRON 4 MG/2 ML VIAL IVP PRN (02:08)
[2021-03-07] MEDS ORDERED: SODIUM CHLORIDE 0.9% 1,000 ML IV STA (02:08)
[2021-03-07] MEDS ORDERED: MORPHINE SULFATE 4 MG/ML SYRINGE IV STA (02:08)
[2021-03-07] MEDS ORDERED: HEPARIN SOD,PORK IN 0.45% NACL 25,000 UNIT in 0.45% NACL 1 250ML.BAG IV SCH (02:15)
--- NOTE | 2021-03-07 02:22 | XR ---
EXAMINATION TYPE: XR chest 2V DATE OF EXAM: 03/07/2021 COMPARISON: 02/08/2021 HISTORY: Weakness TECHNIQUE: FINDINGS: Heart is enlarged. There is no heart failure. There is some coarsening of the lung markings . There is left axillary pacemaker. There is no pleural effusion. Bony thorax is intact. IMPRESSION: Cardiomegaly. Mild pulmonary fibrosis. There is clearing of the mild congestion compared to old exam. No heart failure.
[2021-03-07 03:22] LABS: Basophils # (A) 0.1 k/uL (0-0.2); Basophils % (A) 1 %; Eosinophils # (A) 0.1 k/uL (0-0.7); Eosinophils % (A) 1 %; HCT 43.3 % (34.0-46.0); Lymphocytes # (A) 0.8 k/uL (1.0-4.8); Lymphocytes % (A) 9 %; MCH 29.3 pg (25.0-35.0); MCHC 32.2 g/dL (31.0-37.0); MCV 90.9 fL (80.0-100.0); Mean Platelet Volume 7.4; Monocytes # (A) 0.5 k/uL (0-1.0); Monocytes % (A) 5 %; Neutrophils # (A) 7.8 k/uL (1.3-7.7); Neutrophils % (A) 84 %; Platelet Count 193 k/uL (150-450); RBC 4.77 m/uL (3.80-5.40); RDW 12.6 % (11.5-15.5); WBC 9.3 k/uL (3.8-10.6)
[2021-03-07 03:38] LABS: Albumin 3.9 g/dL (3.5-5.0); Calcium 9.4 mg/dL (8.4-10.2); Magnesium 1.7 mg/dL (1.6-2.3); Phosphorus 4.2 mg/dL (2.5-4.5); Potassium 4.3 mmol/L (3.5-5.1); Total Bilirubin 0.8 mg/dL (0.2-1.3); Total Protein 6.9 g/dL (6.3-8.2)
[2021-03-07 03:45] LABS: INR 1.3 (<1.2); Partial Thromboplastin Time 29.7 sec (22.0-30.0); Prothrombin Time 13.3 sec (9.0-12.0)
[2021-03-07] MEDS ORDERED: RIVAROXABAN 20 MG TAB PO STA (10:50)
--- NOTE | 2021-03-07 11:01 | P.HPIM ---
History of Present Illness A 89-year-old present female came in with the left flexed with the pain and swelling found to have DVT in the left upper extremity evidence of fractures on imaging studies. patient is already on anticoagulation with Xarelto which is for atrial fibrillation at 15 mg at nighttime. Patient will be switched to Eliquis considering that patient and up having DVT in spite of present anticoagulation. Patient does have a swelling because of this DVT for which we'll use compression socks and patient will be referred to hematology may need vascular surgery evaluation if compression will not help the swelling. Patient was also comparing of pain for which patient will be given anti-inflammatory medication. Patient did declined to go to [facility] patient lives by herself but the her granddaughter visits her often about 3 times a week and patient wanted to go home and can get physical therapy as an outpatient patient memory is very good REVIEW OF SYSTEMS: CONSTITUTIONAL: No fever, no malaise, no fatigue. HEENT: No recent visual problems or hearing problems. Denied any sore throat. CARDIOVASCULAR: No chest pain, orthopnea, PND, no palpitations, no syncope. PULMONARY: No shortness of breath, no cough, no hemoptysis. GASTROINTESTINAL: No diarrhea, no nausea, no vomiting, no abdominal pain. NEUROLOGICAL: No headaches, no weakness, no numbness. HEMATOLOGICAL: Denies any bleeding or petechiae. GENITOURINARY: Denies any burning micturition, frequency, or urgency. MUSCULOSKELETAL/RHEUMATOLOGICAL: As mentioned in HPI ENDOCRINE: Denies any polyuria or polydipsia. The rest of the 14-point review of systems is negative. PHYSICAL EXAMINATION: GENERAL: The patient is alert and oriented x3, not in any acute distress. Well developed, well nourished. HEENT: Pupils are round and equally reacting to light. EOMI. No scleral icterus. No conjunctival pallor. Normocephalic, atraumatic. No pharyngeal erythema. No thyromegaly. CARDIOVASCULAR: S1 and S2 present. No murmurs, rubs, or gallops. PULMONARY: Chest is clear to auscultation, no wheezing or crackles. ABDOMEN: Soft, nontender, nondistended, normoactive bowel sounds. No palpable organomegaly. MUSCULOSKELETAL: No joint swelling or deformity. EXTREMITIES: Edema of the left upper extremity NEUROLOGICAL: Gross neurological examination did not reveal any focal deficits. SKIN: No rashes. Assessment and plan -DVT of the left upper extremity with swelling: Patient will be started on Eliquis as mentioned above patient may not need 10 mg twice a day of Eliquis for week because patient is already on anticoagulation at home. --History of atrial fibrillation wasn't a rate controlled next and-COPD -Gases failure reflux disease -Hyperlipidemia -Hypertension Patient will be discharged today with the above-mentioned plan Past Medical History Past Medical History: Atrial Fibrillation, Heart Failure, COPD, GERD/Reflux, GI Bleed, Hyperlipidemia, Hypertension Additional Past Medical History / Comment(s): restless leg syndrome History of Any Multi-Drug Resistant Organisms: None Reported Past Surgical History: Appendectomy, Cholecystectomy, Hysterectomy, Joint Replacement, Orthopedic Surgery Additional Past Surgical History / Comment(s): cataracts removed, bilateral knees Past Anesthesia/Blood Transfusion Reactions: No Reported Reaction Type of Cardiac Device: Biventricular Pacemaker Device Placement Date:: August 2020 Past Psychological History: Anxiety Smoking Status: Former smoker Past Alcohol Use History: None Reported Past Drug Use History: None Reported - Past Family History Father Family Medical History: Coronary Artery Disease (CAD) Additional Family Medical History / Comment(s): rhemuatic fever, at 59 of "bad heart" Mother Family Medical History: Cancer Additional Family Medical History / Comment(s): uterus Medications and Allergies Home Medications Medication Instructions Recorded Confirmed Type LORazepam [Ativan] 0.5 mg PO HS PRN 12/08/14 03/07/21 History Omeprazole [PriLOSEC] 20 mg PO DAILY 12/08/14 03/07/21 History Pravastatin Sodium [Pravachol] 40 mg PO HS 12/08/14 03/07/21 History Tiotropium 18 Mcg/Puff [Spiriva] 2 cap INHALATION RT-DAILY 12/08/14 03/07/21 History rOPINIRole HCL [Requip] 1 mg PO HS PRN 12/08/14 03/07/21 History Cyanocobalamin (Vitamin B-12) 1,000 mcg PO DAILY 01/17/19 03/07/21 History [Vitamin B-12] Donepezil HCl [Aricept] 10 mg PO DAILY 01/17/19 03/07/21 History Latanoprost Ophth [Xalatan 0.005%] 1 drop BOTH EYES HS 01/17/19 03/07/21 History Levothyroxine Sodium [Synthroid] 25 mcg PO DAILY 01/17/19 03/07/21 History Spironolactone [Aldactone] 25 mg PO DAILY 01/17/19 03/07/21 History Vit C/E/Zn/Coppr/Lutein/Zeaxan 1 cap PO BID 01/17/19 03/07/21 History [Preservision Areds 2 Softgel] Furosemide [Lasix] 20 mg PO DAILY 08/27/20 03/07/21 History Lisinopril [Prinivil] 10 mg PO HS 02/08/21 03/07/21 History Psyllium Husk [Metamucil] 0.4 gm PO TID 02/08/21 03/07/21 History Apixaban [Eliquis] 5 mg PO BID #60 tab 03/07/21 Rx traMADol HCL 50 mg PO Q6H PRN #6 tablet 03/07/21 Rx Allergies Allergy/AdvReac Type Severity Reaction Status Date / Time Penicillins Allergy Rash/Hives Verified 03/07/21 09:08 sulfamethoxazole Allergy Rash/Hives Verified 03/07/21 09:08 [From Bactrim] trimethoprim [From Bactrim] Allergy Rash/Hives Verified 03/07/21 09:08 Physical Exam Vitals: Vital Signs Temp Pulse Pulse Resp BP BP Pulse Ox 03/07/21 05:35 97.7 F 66 20 139/85 95 03/07/21 03:19 60 17 140/80 96 03/07/21 00:24 97.8 F 62 17 115/78 96 Intake and Output 03/06/21 03/07/21 03/07/21 22:59 06:59 14:59 Other: Voiding Method Toilet Diaper Incontinent # Voids 1 Weight 72.575 kg Results CBC & Chem 7: 03/07/21 03:08 03/07/21 03:08 Labs: Abnormal Lab Results - Last 24 Hours (Table) 03/07/21 03/07/21 03/07/21 Range/Units 03:08 03:08 03:08 Neutrophils # 7.8 H (1.3-7.7) k/uL Lymphocytes # 0.8 L (1.0-4.8) k/uL PT 13.3 H (9.0-12.0) sec INR 1.3 H (<1.2) D-Dimer 5.34 H (<0.60) mg/L FEU Sodium 133 L (137-145) mmol/L Glucose 137 H (74-99) mg/dL Thrombosis Risk Factor Assmnt - Choose All That Apply Any of the Below Risk Factors Present?: Yes Each Factor Represents 1 point: Obesity (BMI >25), Varicose veins Other Risk Factors: Yes Each Risk Factor Represents 3 Points: Age 75 years or older Other congenital or acquired thrombophilia - If yes, enter type in comment: No Thrombosis Risk Factor Assessment Total Risk Factor Score: 5 Thrombosis Risk Factor Assessment Level: High Risk
--- NOTE | 2021-03-07 11:02 | P.DS ---
Providers Date of admission: 03/07/21 02:08 Attending physician: Oleg King Consults: 03/07/21 02:10 Consult Physician Routine Consulting Provider: Liset Elias Consult Reason/Comments: DVT Do you want consulting provider notified?: Yes Primary care physician: Saurabh Ma [facility] Course: please refer to history of present illness for further details Patient Condition at Discharge: Fair Plan - Discharge Summary Discharge Rx Participant: Yes New Discharge Prescriptions: New traMADol HCL 50 mg PO Q6H PRN #6 tablet PRN Reason: Pain Apixaban [Eliquis] 5 mg PO BID #60 tab Discontinued Rivaroxaban [Xarelto] 15 mg PO HS No Action LORazepam [Ativan] 0.5 mg PO HS PRN PRN Reason: rls rOPINIRole HCL [Requip] 1 mg PO HS PRN PRN Reason: RLS Pravastatin Sodium [Pravachol] 40 mg PO HS Omeprazole [PriLOSEC] 20 mg PO DAILY Tiotropium 18 Mcg/Puff [Spiriva] 2 cap INHALATION RT-DAILY Latanoprost Ophth [Xalatan 0.005%] 1 drop BOTH EYES HS Spironolactone [Aldactone] 25 mg PO DAILY Levothyroxine Sodium [Synthroid] 25 mcg PO DAILY Donepezil HCl [Aricept] 10 mg PO DAILY Cyanocobalamin (Vitamin B-12) [Vitamin B-12] 1,000 mcg PO DAILY Vit C/E/Zn/Coppr/Lutein/Zeaxan [Preservision Areds 2 Softgel] 1 cap PO BID Furosemide [Lasix] 20 mg PO DAILY Lisinopril [Prinivil] 10 mg PO HS Psyllium Husk [Metamucil] 0.4 gm PO TID Discharge Medication List LORazepam [Ativan] 0.5 mg PO HS PRN 12/08/14 [History] Omeprazole [PriLOSEC] 20 mg PO DAILY 12/08/14 [History] Pravastatin Sodium [Pravachol] 40 mg PO HS 12/08/14 [History] Tiotropium 18 Mcg/Puff [Spiriva] 2 cap INHALATION RT-DAILY 12/08/14 [History] rOPINIRole HCL [Requip] 1 mg PO HS PRN 12/08/14 [History] Cyanocobalamin (Vitamin B-12) [Vitamin B-12] 1,000 mcg PO DAILY 01/17/19 [History] Donepezil HCl [Aricept] 10 mg PO DAILY 01/17/19 [History] Latanoprost Ophth [Xalatan 0.005%] 1 drop BOTH EYES HS 01/17/19 [History] Levothyroxine Sodium [Synthroid] 25 mcg PO DAILY 01/17/19 [History] Spironolactone [Aldactone] 25 mg PO DAILY 01/17/19 [History] Vit C/E/Zn/Coppr/Lutein/Zeaxan [Preservision Areds 2 Softgel] 1 cap PO BID 01/17/19 [History] Furosemide [Lasix] 20 mg PO DAILY 08/27/20 [History] Lisinopril [Prinivil] 10 mg PO HS 02/08/21 [History] Psyllium Husk [Metamucil] 0.4 gm PO TID 02/08/21 [History] Apixaban [Eliquis] 5 mg PO BID #60 tab 03/07/21 [Rx] traMADol HCL 50 mg PO Q6H PRN #6 tablet 03/07/21 [Rx] Follow up Appointment(s)/Referral(s): Saurabh Ma DO [Primary Care Provider] - 3 Days Discharge Disposition: HOME WITH HOME HEALTH SERVICES
[2021-03-07] MEDS ORDERED: APIXABAN 5 MG TAB PO ONE (11:15)
[2021-03-07] MEDS ORDERED: LORazepam 0.5 MG TAB PO PRN (13:04)
--- NOTE | 2021-03-07 13:24 | P.GSCN ---
History of Present Illness Consult date: 03/07/21 History of present illness: Priya is an 89-year-old female who came in to the hospital for increasing swelling of her left upper extremity. She states this started relatively precipitously and in the past she has been on Xarelto for atrial fibrillation once daily. She denies any chest pains, shortness of breath, fever, chills, nausea, vomiting or issues otherwise She does have a pacemaker in her left Review of Systems 14 point review of systems performed. Pertinent positives and negatives per the HPI Past Medical History Past Medical History: Atrial Fibrillation, Heart Failure, COPD, GERD/Reflux, GI Bleed, Hyperlipidemia, Hypertension Additional Past Medical History / Comment(s): restless leg syndrome History of Any Multi-Drug Resistant Organisms: None Reported Past Surgical History: Appendectomy, Cholecystectomy, Hysterectomy, Joint Replacement, Orthopedic Surgery Additional Past Surgical History / Comment(s): cataracts removed, bilateral knees Past Anesthesia/Blood Transfusion Reactions: No Reported Reaction Type of Cardiac Device: Biventricular Pacemaker Device Placement Date:: August 2020 Past Psychological History: Anxiety Smoking Status: Former smoker Past Alcohol Use History: None Reported Past Drug Use History: None Reported - Past Family History Father Family Medical History: Coronary Artery Disease (CAD) Additional Family Medical History / Comment(s): rhemuatic fever, at 59 of "bad heart" Mother Family Medical History: Cancer Additional Family Medical History / Comment(s): uterus Medications and Allergies Home Medications Medication Instructions Recorded Confirmed Type LORazepam [Ativan] 0.5 mg PO HS PRN 12/08/14 03/07/21 History Omeprazole [PriLOSEC] 20 mg PO DAILY 12/08/14 03/07/21 History Pravastatin Sodium [Pravachol] 40 mg PO HS 12/08/14 03/07/21 History Tiotropium 18 Mcg/Puff [Spiriva] 2 cap INHALATION RT-DAILY 12/08/14 03/07/21 History rOPINIRole HCL [Requip] 1 mg PO HS PRN 12/08/14 03/07/21 History Cyanocobalamin (Vitamin B-12) 1,000 mcg PO DAILY 01/17/19 03/07/21 History [Vitamin B-12] Donepezil HCl [Aricept] 10 mg PO DAILY 01/17/19 03/07/21 History Latanoprost Ophth [Xalatan 0.005%] 1 drop BOTH EYES HS 01/17/19 03/07/21 History Levothyroxine Sodium [Synthroid] 25 mcg PO DAILY 01/17/19 03/07/21 History Spironolactone [Aldactone] 25 mg PO DAILY 01/17/19 03/07/21 History Vit C/E/Zn/Coppr/Lutein/Zeaxan 1 cap PO BID 01/17/19 03/07/21 History [Preservision Areds 2 Softgel] Furosemide [Lasix] 20 mg PO DAILY 08/27/20 03/07/21 History Lisinopril [Prinivil] 10 mg PO HS 02/08/21 03/07/21 History Psyllium Husk [Metamucil] 0.4 gm PO TID 02/08/21 03/07/21 History Apixaban [Eliquis] 5 mg PO BID #60 tab 03/07/21 Rx traMADol HCL 50 mg PO Q6H PRN #6 tablet 03/07/21 Rx Allergies Allergy/AdvReac Type Severity Reaction Status Date / Time Penicillins Allergy Rash/Hives Verified 03/07/21 09:08 sulfamethoxazole Allergy Rash/Hives Verified 03/07/21 09:08 [From Bactrim] trimethoprim [From Bactrim] Allergy Rash/Hives Verified 03/07/21 09:08 Surgical - Exam Vital Signs Temp Pulse Resp BP Pulse Ox 97.8 F 62 17 115/78 96 03/07/21 00:24 03/07/21 00:24 03/07/21 00:24 03/07/21 00:24 03/07/21 00:24 Gen a pleasant cooperative female in no acute distress. HEENT is normocephalic atraumatic, extraocular motion intact. Heart is irregularly irregular. Lungs are clear bilaterally. Abdomen is soft, obese and nontender. The left upper extremity has moderate swelling. Normal motor sensory intact. Results Ultrasound is reviewed. - Labs 03/07/21 03:08 03/07/21 03:08 Abnormal Lab Results - Last 24 Hours (Table) 03/07/21 03/07/21 03/07/21 Range/Units 03:08 03:08 03:08 Neutrophils # 7.8 H (1.3-7.7) k/uL Lymphocytes # 0.8 L (1.0-4.8) k/uL PT 13.3 H (9.0-12.0) sec INR 1.3 H (<1.2) APTT (22.0-30.0) sec D-Dimer 5.34 H (<0.60) mg/L FEU Sodium 133 L (137-145) mmol/L Glucose 137 H (74-99) mg/dL 03/07/21 Range/Units 10:58 Neutrophils # (1.3-7.7) k/uL Lymphocytes # (1.0-4.8) k/uL PT (9.0-12.0) sec INR (<1.2) APTT 155.2 H* (22.0-30.0) sec D-Dimer (<0.60) mg/L FEU Sodium (137-145) mmol/L Glucose (74-99) mg/dL Diabetes panel 03/07/21 Range/Units 03:08 Sodium 133 L (137-145) mmol/L Potassium 4.3 (3.5-5.1) mmol/L Chloride 99 (98-107) mmol/L Carbon Dioxide 24 (22-30) mmol/L BUN 14 (7-17) mg/dL Creatinine 0.93 (0.52-1.04) mg/dL Glucose 137 H (74-99) mg/dL Calcium 9.4 (8.4-10.2) mg/dL AST 20 (14-36) U/L ALT 11 (4-34) U/L Alkaline Phosphatase 122 (38-126) U/L Total Protein 6.9 (6.3-8.2) g/dL Albumin 3.9 (3.5-5.0) g/dL Calcium panel 03/07/21 Range/Units 03:08 Calcium 9.4 (8.4-10.2) mg/dL Phosphorus 4.2 (2.5-4.5) mg/dL Albumin 3.9 (3.5-5.0) g/dL Pituitary panel 03/07/21 Range/Units 03:08 Sodium 133 L (137-145) mmol/L Potassium 4.3 (3.5-5.1) mmol/L Chloride 99 (98-107) mmol/L Carbon Dioxide 24 (22-30) mmol/L BUN 14 (7-17) mg/dL Creatinine 0.93 (0.52-1.04) mg/dL Glucose 137 H (74-99) mg/dL Calcium 9.4 (8.4-10.2) mg/dL Adrenal panel 03/07/21 Range/Units 03:08 Sodium 133 L (137-145) mmol/L Potassium 4.3 (3.5-5.1) mmol/L Chloride 99 (98-107) mmol/L Carbon Dioxide 24 (22-30) mmol/L BUN 14 (7-17) mg/dL Creatinine 0.93 (0.52-1.04) mg/dL Glucose 137 H (74-99) mg/dL Calcium 9.4 (8.4-10.2) mg/dL Total Bilirubin 0.8 (0.2-1.3) mg/dL AST 20 (14-36) U/L ALT 11 (4-34) U/L Alkaline Phosphatase 122 (38-126) U/L Total Protein 6.9 (6.3-8.2) g/dL Albumin 3.9 (3.5-5.0) g/dL Assessment and Plan Assessment: Left subclavian DVT Left upper extremity swelling secondary to #1 Pacemaker Plan: Discussed with the patient and family that there is likely some degree of anatomic narrowing due to the pacemaker and wires which is likely the cause of fact of the DVT. At this time support with oral anticoagulation, elevation and compression of the extremity. No further planned intervention, typically unable to perform any sort of ballooning or stenting of the venous system in this regard due to the pacemaker wires and risk of fracture. There is no indication for acute thrombolytics of the clot itself given her arm maintains arterial flow, is motor sensory intact and has no evidence of phlegmasia at this time
[2021-03-07] MEDS: FUROSEMIDE 20 MG TAB PO SCH (13:41)
[2021-03-07] MEDS: DONEPEZIL 10 MG TAB PO SCH (13:41)
[2021-03-07] MEDS: traMADol 50 MG TAB PO PRN ×2 (15:39→23:48)
[2021-03-07] MEDS: LATANOPROST 0.005% OPHTH DROPS 2.5 ML BTL BOTH EYES SCH (20:46)
[2021-03-07] MEDS: lisinopriL 10 MG TAB PO SCH (20:46)
[2021-03-07] MEDS: PRAVASTATIN SODIUM 40 MG TAB PO SCH (20:46)
[2021-03-07] MEDS: VIT A,C & E-LUTEIN-MINERALS 1 EACH TAB PO SCH (20:46)
[2021-03-07] MEDS: APIXABAN 5 MG TAB PO SCH (20:46)
[2021-03-08 06:20] LABS: Basophils % (A) 1 %; Eosinophils # (A) 0.1 k/uL (0-0.7); Eosinophils % (A) 2 %; HCT 40.5 % (34.0-46.0); Lymphocytes # (A) 0.5 k/uL (1.0-4.8); Lymphocytes % (A) 9 %; MCH 30.2 pg (25.0-35.0); MCHC 32.2 g/dL (31.0-37.0); Mean Platelet Volume 8.2; Monocytes # (A) 0.5 k/uL (0-1.0); Monocytes % (A) 8 %; Neutrophils # (A) 4.5 k/uL (1.3-7.7); Neutrophils % (A) 79 %; Platelet Count 146 k/uL (150-450); RBC 4.31 m/uL (3.80-5.40); RDW 13.2 % (11.5-15.5); WBC 5.7 k/uL (3.8-10.6)
[2021-03-08] MEDS: LEVOTHYROXINE 25 MCG TAB PO SCH (06:22)
[2021-03-08] MEDS: PANTOPRAZOLE 40 MG TABLET PO SCH (08:42)
[2021-03-08] MEDS: FUROSEMIDE 20 MG TAB PO SCH (08:42)
[2021-03-08] MEDS: APIXABAN 5 MG TAB PO SCH ×2 (08:42→20:36)
[2021-03-08] MEDS: CYANOCOBALAMIN 500 MCG TAB PO SCH (08:42)
[2021-03-08] MEDS: DONEPEZIL 10 MG TAB PO SCH (08:42)
[2021-03-08] MEDS: SPIRONOLACTONE 25 MG TAB PO SCH (08:43)
[2021-03-08] MEDS: VIT A,C & E-LUTEIN-MINERALS 1 EACH TAB PO SCH ×2 (08:43→20:37)
[2021-03-08] MEDS: TIOTROPIUM 2.5 MCG INHALER INHALATION SCH (09:32)
[2021-03-08 10:37] LABS: African American GFR (CKD) 69.3 (60.0-200.0); Albumin 3.4 g/dL (3.8-4.9); Albumin/Globulin Ratio 1.5 (1.60-3.17); Anion Gap 15.3 mmol/L (4.00-12.00); BUN/Creat Ratio 12.31 Ratio (12.00-20.00); Blood Urea Nitrogen 10.6 mg/dL (9.0-27.0); Calcium 8.8 mg/dL (8.7-10.3); Carbon Dioxide 16.2 mmol/L (21.6-31.8); Globulin 2.3 g/dL (1.6-3.3); Non-African American GFR(CKD) 59.8 (60.0-200.0); Potassium 4.7 mmol/L (3.5-5.5); Total Bilirubin 0.8 mg/dL (0.30-1.20); Total Protein 5.7 g/dL (6.2-8.2)
--- NOTE | 2021-03-08 11:21 | P.PN ---
Subjective Progress Note Date: 03/08/21 A 89-year-old present female came in with the left flexed with the pain and swelling found to have DVT in the left upper extremity evidence of fractures on imaging studies. patient is already on anticoagulation with Xarelto which is for atrial fibrillation at 15 mg at nighttime. Patient will be switched to Eliquis considering that patient and up having DVT in spite of present anticoagulation. Patient does have a swelling because of this DVT for which we'll use compression socks and patient will be referred to hematology may need vascular surgery evaluation if compression will not help the swelling. Patient was also comparing of pain for which patient will be given anti-inflammatory medication. Patient did declined to go to ECF patient lives by herself but the her granddaughter visits her often about 3 times a week and patient wanted to go home and can get physical therapy as an outpatient patient memory is very good 03/08/21 Patient is sitting up in bed. We are pending a formal PT OT evaluation as patient and family decided on ECF on discharge. Patient was taking xarelto for prophylaxis due to chronic A. fib, however she did present with a left subclavian DVT. Because of this we transitioned her to oral eliquis on discharge. Continue with compression to her left upper extremity. Evaluation from vascular surgery recommends management with compression and anticoagulation. ROS Constitutional: Denied any fatigue denied any fever. Cardio vascular: denied any chest pain, palpitations Gastrointestinal denied any nausea vomiting Pulmonary: Denied any shortness of breath cough Neurologic denied any new focal deficits Musculoskeletal: reports edema to LUE, denies numbness or tingling All inpatient medications were reviewed and appropriate changes in these medications as dictated in the interval history and assessment and plan. PHYSICAL EXAMINATION: GENERAL: The patient is alert and oriented x3, not in any acute distress. Well developed, well nourished. HEENT: Pupils are round and equally reacting to light. EOMI. No scleral icterus. No conjunctival pallor. Normocephalic, atraumatic. No pharyngeal erythema. No thyromegaly. CARDIOVASCULAR: S1 and S2 present. No murmurs, rubs, or gallops. PULMONARY: Chest is clear to auscultation, no wheezing or crackles. ABDOMEN: Soft, nontender, nondistended, normoactive bowel sounds. No palpable organomegaly. MUSCULOSKELETAL: No joint swelling or deformity. EXTREMITIES: Edema of the left upper extremity NEUROLOGICAL: Gross neurological examination did not reveal any focal deficits. SKIN: No rashes. Assessment and plan -Left subclavian DVT with slowing to the left upper extremity, transition to eliquis 5 mg twice a day, does not need 10 mg twice a day as she was on anticoagulation at home. -History of atrial fibrillation, presently in sinus rhythm rate controlled -COPD -Gases failure reflux disease -Hyperlipidemia -Hypertension DVT Prophylaxis - Eliquis GI Prophylaxis - Protonix FULL CODE PT/OT evaluation tomorrow and discharge to rehab. Objective - Vital Signs Vital signs: Vital Signs Temp 97.8 F 03/08/21 05:20 Pulse 59 L 03/08/21 08:00 Resp 16 03/08/21 08:00 BP 111/70 03/08/21 05:20 Pulse Ox 95 03/08/21 05:20 Intake & Output 03/07/21 03/08/21 03/08/21 18:59 06:59 18:59 Other: Voiding Method Toilet Diaper Incontinent # Voids 5 3 # Bowel Movements 0 - Labs CBC & Chem 7: 03/08/21 05:35 03/08/21 05:35 Labs: Abnormal Lab Results - Last 24 Hours (Table) 03/07/21 03/08/21 03/08/21 Range/Units 10:58 05:35 05:35 Plt Count 146 L (150-450) k/uL Lymphocytes # 0.5 L (1.0-4.8) k/uL APTT 155.2 H* (22.0-30.0) sec Sodium 134 L (135-145) mmol/L Carbon Dioxide 16.2 L (21.6-31.8) mmol/L Anion Gap 15.30 H (4.00-12.00) mmol/L Est GFR (CKD-EPI)NonAf 59.8 L (60.0-200.0) AST 55 H (13-35) U/L Alkaline Phosphatase 169 H (41-126) U/L Total Protein 5.7 L (6.2-8.2) g/dL Albumin 3.4 L (3.8-4.9) g/dL Albumin/Globulin Ratio 1.50 L (1.60-3.17) g/dL Assessment and Plan Time with Patient: Greater than 30
[2021-03-08] MEDS: lisinopriL 10 MG TAB PO SCH ×2 (20:36→20:43)
[2021-03-08] MEDS: PRAVASTATIN SODIUM 40 MG TAB PO SCH (20:37)
[2021-03-08] MEDS: LATANOPROST 0.005% OPHTH DROPS 2.5 ML BTL BOTH EYES SCH (20:44)
[2021-03-09] MEDS: TIOTROPIUM 2.5 MCG INHALER INHALATION SCH (09:04)
[2021-03-09 09:13] LABS: African American GFR (CKD) 68.6 (60.0-200.0); Anion Gap 8.9 mmol/L (4.00-12.00); BUN/Creat Ratio 12.54 Ratio (12.00-20.00); Blood Urea Nitrogen 10.9 mg/dL (9.0-27.0); Calcium 9.1 mg/dL (8.7-10.3); Carbon Dioxide 25.9 mmol/L (21.6-31.8); Non-African American GFR(CKD) 59.1 (60.0-200.0); Potassium 4.6 mmol/L (3.5-5.5)
[2021-03-09] MEDS: LEVOTHYROXINE 25 MCG TAB PO SCH (09:19)
[2021-03-09] MEDS: DONEPEZIL 10 MG TAB PO SCH (09:19)
[2021-03-09] MEDS: VIT A,C & E-LUTEIN-MINERALS 1 EACH TAB PO SCH (09:19)
[2021-03-09] MEDS: FUROSEMIDE 20 MG TAB PO SCH (09:19)
[2021-03-09] MEDS: CYANOCOBALAMIN 500 MCG TAB PO SCH (09:19)
[2021-03-09] MEDS: PANTOPRAZOLE 40 MG TABLET PO SCH (09:19)
[2021-03-09] MEDS: SPIRONOLACTONE 25 MG TAB PO SCH (09:19)
[2021-03-09] MEDS: APIXABAN 5 MG TAB PO SCH (09:19)
[2021-03-09 12:07] VITALS: BP 144/68; PULSE 64; RESP 16; TEMP 98.1
--- NOTE | 2021-03-09 14:21 | P.DS ---
Providers Date of admission: 03/07/21 02:08 Expected date of discharge: 03/09/21 Attending physician: Saurabh Ma Consults: 03/07/21 02:10 Consult Physician Routine Consulting Provider: Liset Elias Consult Reason/Comments: DVT Do you want consulting provider notified?: Yes Primary care physician: Saurabh Ma Hospital Course: Final Diagnoses: Left Subclavian DVT Left upper extremity swelling secondary to #1 Chronic afib Pacemaker Chronic COPD GERDS hypertension Hyperlipidemia This is an 89-year-old female admitted with left upper extremity swelling secondary to left subclavian DVT. Evaluated by vascular surgery, attributed to some degree of anatomic narrowing due to the pacemaker/wires wires felt to be the cause of the DVT. no surgical intervention recommended at this time,recommended supporting with oral anticoagulation which patient is already on Eliquis secondary to chronic A. fib-recommended no indication for acute thrombolytics.significant clinical improvement. Patient will be discharged to subacute rehab in stable condition with guarded prognosis. The impression and plan of care has been dictated as directed. : I performed a history and examination of this patient, discussed the same with the dictator. I agree with the dictator's note ,documented as a scribe. Any additional findings or plans will be noted. Patient Condition at Discharge: Stable Plan - Discharge Summary Discharge Rx Participant: Yes New Discharge Prescriptions: New traMADol HCL 50 mg PO Q6H PRN #6 tablet PRN Reason: Pain Apixaban [Eliquis] 5 mg PO BID #60 tab Continue LORazepam [Ativan] 0.5 mg PO HS PRN PRN Reason: rls rOPINIRole HCL [Requip] 1 mg PO HS PRN PRN Reason: RLS Pravastatin Sodium [Pravachol] 40 mg PO HS Omeprazole [PriLOSEC] 20 mg PO DAILY Tiotropium 18 Mcg/Puff [Spiriva] 2 cap INHALATION RT-DAILY Latanoprost Ophth [Xalatan 0.005%] 1 drop BOTH EYES HS Spironolactone [Aldactone] 25 mg PO DAILY Levothyroxine Sodium [Synthroid] 25 mcg PO DAILY Donepezil HCl [Aricept] 10 mg PO DAILY Cyanocobalamin (Vitamin B-12) [Vitamin B-12] 1,000 mcg PO DAILY Vit C/E/Zn/Coppr/Lutein/Zeaxan [Preservision Areds 2 Softgel] 1 cap PO BID Furosemide [Lasix] 20 mg PO DAILY Lisinopril [Prinivil] 10 mg PO HS Psyllium Husk [Metamucil] 0.4 gm PO TID Discontinued Rivaroxaban [Xarelto] 15 mg PO HS Discharge Medication List LORazepam [Ativan] 0.5 mg PO HS PRN 12/08/14 [History] Omeprazole [PriLOSEC] 20 mg PO DAILY 12/08/14 [History] Pravastatin Sodium [Pravachol] 40 mg PO HS 12/08/14 [History] Tiotropium 18 Mcg/Puff [Spiriva] 2 cap INHALATION RT-DAILY 12/08/14 [History] rOPINIRole HCL [Requip] 1 mg PO HS PRN 12/08/14 [History] Cyanocobalamin (Vitamin B-12) [Vitamin B-12] 1,000 mcg PO DAILY 01/17/19 [History] Donepezil HCl [Aricept] 10 mg PO DAILY 01/17/19 [History] Latanoprost Ophth [Xalatan 0.005%] 1 drop BOTH EYES HS 01/17/19 [History] Levothyroxine Sodium [Synthroid] 25 mcg PO DAILY 01/17/19 [History] Spironolactone [Aldactone] 25 mg PO DAILY 01/17/19 [History] Vit C/E/Zn/Coppr/Lutein/Zeaxan [Preservision Areds 2 Softgel] 1 cap PO BID 01/17/19 [History] Furosemide [Lasix] 20 mg PO DAILY 08/27/20 [History] Lisinopril [Prinivil] 10 mg PO HS 02/08/21 [History] Psyllium Husk [Metamucil] 0.4 gm PO TID 02/08/21 [History] Apixaban [Eliquis] 5 mg PO BID #60 tab 03/07/21 [Rx] traMADol HCL 50 mg PO Q6H PRN #6 tablet 03/07/21 [Rx] Follow up Appointment(s)/Referral(s): Saurabh Ma DO [Primary Care Provider] - 1 Week (after DC from subacute rehab) Discharge Disposition: HOME WITH HOME HEALTH SERVICES
== END 2021-03-09 18:12 ==
LOC: EC 00:12 → 5NMEDONC 02:08
PROVIDERS: ADMIT Family Medicine; ATTEND Family Medicine
DX: I82.B12 Acute embolism and thrombosis of left subclavian vein (principal); I48.20 Chronic atrial fibrillation, unspecified; J44.9 Chronic obstructive pulmonary disease, unspecified; K21.9 Gastro-esophageal reflux disease without esophagitis; Z20.822 Contact with and (suspected) exposure to COVID-19; I11.0 Hypertensive heart disease with heart failure; I50.9 Heart failure, unspecified; E78.5 Hyperlipidemia, unspecified; E66.9 Obesity, unspecified; Z68.34 Body mass index [BMI] 34.0-34.9, adult; G25.81 Restless legs syndrome; F41.9 Anxiety disorder, unspecified; Z88.0 Allergy status to penicillin; Z79.899 Other long term (current) drug therapy; Z79.01 Long term (current) use of anticoagulants; Z79.890 Hormone replacement therapy; Z90.49 Acquired absence of other specified parts of digestive tract; Z98.41 Cataract extraction status, right eye; Z98.42 Cataract extraction status, left eye; Z96.1 Presence of intraocular lens; Z95.0 Presence of cardiac pacemaker; Z90.710 Acquired absence of both cervix and uterus; Z87.891 Personal history of nicotine dependence; Z87.81 Personal history of (healed) traumatic fracture; Z87.19 Personal history of other diseases of the digestive system; Z86.718 Personal history of other venous thrombosis and embolism; Z82.49 Family history of ischemic heart disease and other diseases of the circulatory system; Z80.49 Family history of malignant neoplasm of other genital organs
CPT/HCPCS: 99285; 96375; 96374; 36415; 94640 ×2; 93005; 97162; 97166; 85379; 83880; 80053 ×2; 80048; 83735; 84100; 85025 ×2; 85610; 85730; 87635; 73060; 73090; 71046; 93971; G0378 ×3; J2270; J1644 ×2; 99284

== ENCOUNTER 2021-04-03 16:33 | Emergency (ER) | payer MEDICARE ==
[2021-04-03 16:42] VITALS: BP 151/58; PULSE 79; RESP 20; TEMP 98.5
--- NOTE | 2021-04-03 19:00 | ED ---
General Adult HPI - General Chief complaint: Extremity Problem,Nontraumatic Stated complaint: lt arm swelling/recent blood clot Time Seen by Provider: 04/03/21 18:30 Source: patient, RN notes reviewed Mode of arrival: ambulatory Limitations: no limitations - History of Present Illness Initial comments: 89-year-old female presents to the emergency room for left arm swelling. Patient states she has had swelling of the left arm for about 3 days now. Patient recently was diagnosed with a DVT of the left arm but the swelling had subsided. Family states the patient is supposed to be taking eliquis but has been taking her xarelto instead. No fevers. No chest pain or shortness of breath.Patient has no other complaints at this time including shortness of breath, chest pain, abdominal pain, nausea or vomiting, headache, or visual changes. - Related Data Home Medications Medication Instructions Recorded Confirmed Omeprazole [PriLOSEC] 20 mg PO [id number] 12/08/14 04/03/21 Pravastatin Sodium [Pravachol] 40 mg PO HS 12/08/14 04/03/21 Tiotropium 18 Mcg/Puff [Spiriva] 2 cap INHALATION RT-DAILY 12/08/14 04/03/21 rOPINIRole HCL [Requip] 1 mg PO HS 12/08/14 04/03/21 Cyanocobalamin (Vitamin B-12) 1,000 mcg PO DAILY 01/17/19 04/03/21 [Vitamin B-12] Donepezil HCl [Aricept] 10 mg PO DAILY 01/17/19 04/03/21 Latanoprost Ophth [Xalatan 0.005%] 1 drop BOTH EYES HS 01/17/19 04/03/21 Levothyroxine Sodium [Synthroid] 25 mcg PO DAILY 01/17/19 04/03/21 Spironolactone [Aldactone] 25 mg PO DAILY 01/17/19 04/03/21 Vit C/E/Zn/Coppr/Lutein/Zeaxan 1 cap PO DAILY 01/17/19 04/03/21 [Preservision Areds 2 Softgel] Furosemide [Lasix] 20 mg PO DAILY 08/27/20 04/03/21 Acetaminophen Tab [Tylenol] 325 mg PO Q4H PRN 04/03/21 04/03/21 LORazepam [Ativan] 0.5 mg PO HS PRN 04/03/21 04/03/21 lisinopriL [Zestril] 5 mg PO HS 04/03/21 04/03/21 traMADol HCl [Ultram] 50 mg PO Q6H PRN 04/03/21 04/03/21 Previous Rx's Medication Instructions Recorded Apixaban [Eliquis] 5 mg PO BID #60 tab 03/07/21 Allergies Allergy/AdvReac Type Severity Reaction Status Date / Time Penicillins Allergy Rash/Hives Verified 04/03/21 19:47 sulfamethoxazole Allergy Rash/Hives Verified 04/03/21 19:47 [From Bactrim] trimethoprim [From Bactrim] Allergy Rash/Hives Verified 04/03/21 19:47 Review of Systems ROS Statement: Those systems with pertinent positive or pertinent negative responses have been documented in the HPI. ROS Other: All systems not noted in ROS Statement are negative. Past Medical History Past Medical History: Atrial Fibrillation, Heart Failure, COPD, GERD/Reflux, GI Bleed, Hyperlipidemia, Hypertension Additional Past Medical History / Comment(s): restless leg syndrome History of Any Multi-Drug Resistant Organisms: None Reported Past Surgical History: Appendectomy, Cholecystectomy, Hysterectomy, Joint Replacement, Orthopedic Surgery Additional Past Surgical History / Comment(s): cataracts removed, bilateral knees Past Anesthesia/Blood Transfusion Reactions: No Reported Reaction Type of Cardiac Device: Biventricular Pacemaker Device Placement Date:: August 2020 Past Psychological History: Anxiety Smoking Status: Former smoker Past Alcohol Use History: None Reported Past Drug Use History: None Reported - Past Family History Father Family Medical History: Coronary Artery Disease (CAD) Additional Family Medical History / Comment(s): rhemuatic fever, at 59 of "bad heart" Mother Family Medical History: Cancer Additional Family Medical History / Comment(s): uterus General Exam - General Exam Comments Initial Comments: Left arm: Patient does have moderate edema noted of the left arm without erythema. Radial pulse 2+. No abscess or cellulitis. Full range of motion. Limitations: no limitations General appearance: alert, in no apparent distress Head exam: Present: atraumatic Eye exam: Present: normal appearance, PERRL, EOMI. Absent: scleral icterus, conjunctival injection ENT exam: Present: normal exam, mucous membranes moist Neck exam: Present: normal inspection, full ROM. Absent: tenderness Respiratory exam: Present: normal lung sounds bilaterally. Absent: respiratory distress, wheezes, rales Cardiovascular Exam: Present: regular rate, normal rhythm, normal heart sounds GI/Abdominal exam: Present: soft. Absent: distended, tenderness, normal bowel sounds Neurological exam: Present: alert Course Vital Signs 04/03/21 16:40 Temperature 98.5 F Pulse Rate 79 Respiratory 20 Rate Blood Pressure 151/58 O2 Sat by Pulse 98 Oximetry Medical Decision Making - Medical Decision Making Vitals are stable. Patient is well-appearing. Radial pulse 2+ left upper extremity. No phlegmasia. Skin is normal. She does have mild edema. Ult rasound does reveal DVT in the left subclavian vein consistent with previous ultrasound. I did review the note from Dr. Elias. It appears that there is no indication to stent the area as it is caused by pacemaker wires nor is she requiring a TPA as she is having good pulses and arterial flow. I suspect that this swelling is an expected minor complication of DVT. She will follow up with her surgeon. She will return here for any worsening symptoms. Patient does have rings on her left hand. I did strongly recommend we cut these off however patient is refusing. She states she will come back if they are getting tighter Disposition Clinical Impression: Deep vein thrombosis (DVT) of upper extremity Disposition: HOME SELF-CARE Condition: Good Instructions (If sedation given, give patient instructions): Deep Vein Thrombosis (ED) Additional Instructions: Please follow up with primary care and vascular surgery in 1-2 days. Return to the ER for any worsening symptoms. Is patient prescribed a controlled substance at d/c from ED?: No Referrals: Saurabh Ma DO [Primary Care Provider] - 1-2 days Liset Elias DO [STAFF PHYSICIAN] - 1-2 days Time of Disposition: 20:29
--- NOTE | 2021-04-03 19:40 | US ---
EXAMINATION TYPE: US venous doppler duplex UE LT DATE OF EXAM: 04/03/2021 COMPARISON: US CLINICAL HISTORY: worsening edema, DVT history a few weeks ago. Left arm swelling, known recent DVT SIDE PERFORMED: Left Left Arm: Rouleaux flow in similar locations when compared to previous such as, IJV, distal subclavia n, axillary, and basilic veins/ Probable occlusive deep venous thrombus within proximal subclavian ve in surrounding pacemaker leads/ unable to visualized left ulnar veins due to limited pt mobility IMPRESSION: There is evidence of deep vein thrombosis in the left subclavian vein. There is patency of the axilla ry vein.
== END 2021-04-03 21:15 | disposition home or self-care (01) ==
LOC: EC 16:33
DX: I82.622 Acute embolism and thrombosis of deep veins of left upper extremity (principal); I11.0 Hypertensive heart disease with heart failure; I50.9 Heart failure, unspecified; J44.9 Chronic obstructive pulmonary disease, unspecified; K21.9 Gastro-esophageal reflux disease without esophagitis; E78.5 Hyperlipidemia, unspecified; I48.91 Unspecified atrial fibrillation; F41.9 Anxiety disorder, unspecified; Z79.01 Long term (current) use of anticoagulants; Z88.0 Allergy status to penicillin; Z88.1 Allergy status to other antibiotic agents; Z88.2 Allergy status to sulfonamides; Z90.49 Acquired absence of other specified parts of digestive tract; Z90.710 Acquired absence of both cervix and uterus; Z87.891 Personal history of nicotine dependence
CPT/HCPCS: 99283